=== PATIENT | female | born 1970 | race Caucasian/White ===

== ENCOUNTER → 2016-03-16 | Outpatient (REF) | payer OTHER ==
[~2016-03-16] MED LIST: /PROM25SU RE; /ROPI5TA PO; BACL10TA2 OR; BENT20TA OR; CETI5CHW OR; CLAR5CHW OR; DARV100T OR; ESTR125TA OR; FLEXERIL OR; GEOD40CA PO; LITH300T2 PO; OXYC1SOL PO; PERC5TAB8 PO; PHEN 25 PO; PRED10TA2 OR; TOPI50TA PO; TRAZ50TA OR; VICODINES TAB OR; XANA0.5T OR; [UNRECOGNIZED DRUG - OTHER]; immodium PO
[2016-03-16 16:07] LABS: MEAN CORPUSCULAR HEMOGLOBIN 32.9 pg (27.0-33.0); MEAN CORPUSCULAR HGB CONC 33.8 g/dl (32.0-36.5); MEAN CORPUSCULAR VOLUME 97.4 fl (80.0-96.0); RED CELL DISTRIBUTION WIDTH 12.3 % (11.5-14.5)
== END | disposition home or self-care (01) ==
LOC: M LAB REF 15:37
PROVIDERS: ATTEND Family Medicine
DX: R07.89 Other chest pain (principal); J44.0 Chronic obstructive pulmonary disease with (acute) lower respiratory infection; Z79.891 Long term (current) use of opiate analgesic; R06.83 Snoring; Z99.81 Dependence on supplemental oxygen

== ENCOUNTER → 2016-03-30 | Outpatient (REF) | payer OTHER ==
[2016-03-30 18:29] LABS: ALBUMIN 4.2 GM/DL (3.2-5.2); ALBUMIN/GLOBULIN RATIO 1.31 (1.00-1.93); ALKALINE PHOSPHATASE 62 U/L (45-117); ALT/SGPT 31 U/L (12-78); ANION GAP 9 MEQ/L (8-16); AST/SGOT 35 U/L (15-37); BILIRUBIN,TOTAL 0.3 MG/DL (0.2-1.0); BLOOD UREA NITROGEN 14 MG/DL (7-18); CALCIUM LEVEL 9.3 MG/DL (8.5-10.1); CARBON DIOXIDE LEVEL 23 MEQ/L (21-32); CHLORIDE LEVEL 108 MEQ/L (98-107); CREATININE FOR GFR 0.65 MG/DL (0.55-1.02); GLOMERULAR FILTRATION RATE > 60.0 (>58); GLUCOSE, FASTING 83 MG/DL (70-105); SODIUM LEVEL 140 MEQ/L (136-145); TOTAL PROTEIN 7.4 GM/DL (6.4-8.2)
== END | disposition home or self-care (01) ==
LOC: M LAB REF 16:31
PROVIDERS: ATTEND Family Medicine
DX: Z79.891 Long term (current) use of opiate analgesic (principal); Z99.81 Dependence on supplemental oxygen; R07.89 Other chest pain; J44.0 Chronic obstructive pulmonary disease with (acute) lower respiratory infection; R06.83 Snoring

== ENCOUNTER → 2016-06-01 | Day surgery (SDC) | payer OTHER ==
[~2016-06-01] VITALS: Ht 160 cm; Wt 112.9 kg
[~2016-06-01] MED LIST changes: +ALBU17IN INH; +ANOR1AER IN; +BENA25TA9 PO; +BISO10TA PO; +BISO5TAB5 PO; +BISOPROLOL FUM 2.5 MG PER 1/2TAB As Ordered ONE; +BISOPROLOL FUM 2.5 MG PER 1/2TAB PO ONE; +BISOPROLOL FUMARATE 5 MG TAB As Ordered ONE; +BISOPROLOL FUMARATE 5 MG TAB PO ONE; +BUPIVACAINE HCL 0.25% 30 ML VIAL As Ordered ONE; +COUM1TAB17 PO; +COUM2.5T11 PO; +EPIP0.3I2 IJ; +FENO150C PO; +HEPARIN SOD (PORCINE) 5000 UNITS/ML VIAL As Ordered ONE; +INSUHUMDS SC; +KETAMINE HCL 200 MG/20 ML VIAL As Ordered ONE; +LASI20TA PO; +LIDOCAINE 1% SDV INJ 30 ML VIAL As Ordered ONE; +LIDOCAINE 2% INJ 100 MG/5 ML SDV (FOR ANES.) As Ordered ONE; +LIPI20TA PO; +LOVE0.8I SC; +LR 1,000 ML IV SCH; +MIDAZOLAM INJ 2 MG/2 ML VIAL (J2250) As Ordered ONE; +NITR4TASL SL; +ONDANSETRON 4MG/2ML VIAL (J2405) As Ordered ONE; +ONDANSETRON 4MG/2ML VIAL (J2405) IV PRN; +OXYC1TAB23 PO; +PLAV75TA38 PO; +POTA10LI10 PO; +PROPOFOL 200 MG/20 ML VIAL As Ordered ONE; +VITA100054 PO; +VITA100L PO; +XANA0.5T3 PO; +ZOFR8TAB PO; +[UNRECOGNIZED DRUG - CODE] TD; +fentaNYL 100 MCG/2 ML INJECTION (J3010) As Ordered ONE
[2016-06-01 07:06] LABS: INR 1.02
--- NOTE | 2016-06-01 11:11 | REP ---
Chest one-view HISTORY: Yvjjnj-N-Qzag insertion Comparison: 12/13/2015 The lungs are clear. The heart is normal in size. The pulmonary vasculature is normal in appearance . the patient is status post Vefgau-A-Ntuk insertion in the superior vena cava. There is no definite pneumothorax. Impression: No acute disease. Signed by Dawood Gómez MD 06/01/2016 11:03 A
[2016-06-01 11:15] VITALS: BP 153/72
--- NOTE | 2016-06-01 11:19 | REP ---
FLUOROSCOPIC GUIDANCE FOR AOWNSS-F-SQAC EXCHANGE: 06/01/2016 CLINICAL HISTORY: Wdxnun-C-Mdeo removal/change. FINDINGS: Two images from C-arm fluoroscopy provided to Dr. Lazo of the surgery department showing a right subclavian catheter with the probe at the proximal and distally in the SVC. There are sternotomy wires evident. Fluoroscopy time: 1 minute 28 seconds. Signed by Gurmeet Blake MD 06/01/2016 08:07 P
--- NOTE | 2016-07-02 23:02 | RO ---
DATE OF PROCEDURE: 06/01/2016 PREOPERATIVE DIAGNOSIS: Nonfunctioning right side Pgbtsi-s-Yqhm. POSTOPERATIVE DIAGNOSIS: Nonfunctioning right side Ebatzq-y-Sspc. PROCEDURE PERFORMED: Insertion of right subclavian Zbdyke-z-Mpsy. SURGEON: Dr. Otis Lazo AFTERSCHOOL BABYSITTER: None. ANESTHESIA: Monitored anesthesia care with local anesthesia ESTIMATED BLOOD LOSS: Less than 5 mL. COMPLICATIONS: None. REMARKS: The patient tolerated the procedure well. Postoperative chest x-ray done confirms placement and absence of postoperative pneumothorax. DESCRIPTION OF PROCEDURE: Ms. Rey is a 46-year-old female, multiple medical problems requiring frequent blood draws that they found hard to get her vein. She has an Itietf-a-Tmko that stopped functioning more than a year now. She approached my office wanting to have the Colnih-q-Zovq change for frequent blood draws. She was seen by her sustainability executive director, was given clearance for the procedure as requested by anesthesia. She was brought to the operating room, her right chest Fqgqxi-i-Zxjt, which was coming off her internal jugular vein, was prepped and draped in the usual sterile fashion. After adequate anesthesia, the previous incision of the right Elhbgz-o-Tkwv was opened up with a scalpel. The Ecbwuu-h-Udur hub was exteriorized. We tried to aspirate and this aspirating sluggishly, though we were able to flush it. I disconnected the hub from the catheter, was unable to thread the wire through this; thus, I discontinued the hole of the catheter. Using the pocket that was previously created, the subclavian vein was located with a finder needle easily. Guidewire was threaded through and under fluoroscopic vision, placed at the junction of the right atrium and superior vena cava. Using modified Seldinger technique, the tract was dilated. The peel-away sheath was threaded into the subclavian vein and the guidewire exchanged for the catheter. The catheter was placed at its adequate placement and cut into appropriate length. The catheter and the hub was then connected and buried into the previously created subcutaneous pocket and secured with #2-0 Vicryl. I tested the hub and noted this to be aspirating and flushing well. The final flush we used heparin as our final flush. The pocket was then closed in layers with #3-0 Vicryl and #4-0 Monocryl to close the skin. Steri-Strip gauze dressings, Tegaderm then used for wound coverage. The patient was then awakened, brought to the recovery room. Postoperative chest x-ray taken.
== END ==
LOC: M SDC 06:15
PROVIDERS: ATTEND Surgery
DX: Z45.2 Encounter for adjustment and management of vascular access device (principal); I10 Essential (primary) hypertension; G35 Multiple sclerosis; K21.9 Gastro-esophageal reflux disease without esophagitis; F41.9 Anxiety disorder, unspecified; F32.9 Major depressive disorder, single episode, unspecified; J44.9 Chronic obstructive pulmonary disease, unspecified; R06.02 Shortness of breath; R06.83 Snoring; I25.10 Atherosclerotic heart disease of native coronary artery without angina pectoris; Z95.5 Presence of coronary angioplasty implant and graft; I25.2 Old myocardial infarction; I50.9 Heart failure, unspecified; E78.00 Pure hypercholesterolemia, unspecified; F43.10 Post-traumatic stress disorder, unspecified; Z87.891 Personal history of nicotine dependence; Z86.73 Personal history of transient ischemic attack (TIA), and cerebral infarction without residual deficits; Z79.899 Other long term (current) drug therapy; Z79.02 Long term (current) use of antithrombotics/antiplatelets; Z79.01 Long term (current) use of anticoagulants; Z88.8 Allergy status to other drugs, medicaments and biological substances; Z88.1 Allergy status to other antibiotic agents; Z88.5 Allergy status to narcotic agent; Z91.041 Radiographic dye allergy status
CPT/HCPCS: 36415; 36561; 71010; 76000; 85610; C1788; J0690; J2250; J2405; J3010

== ENCOUNTER 2016-07-24 08:19 | Emergency (ER) | payer OTHER ==
[~2016-07-24] VITALS: Ht 161.3 cm; Wt 117.9 kg
[~2016-07-24 08:19] MED LIST changes: -BISOPROLOL FUM 2.5 MG PER 1/2TAB As Ordered ONE; -BISOPROLOL FUM 2.5 MG PER 1/2TAB PO ONE; -BISOPROLOL FUMARATE 5 MG TAB As Ordered ONE; -BISOPROLOL FUMARATE 5 MG TAB PO ONE; -BUPIVACAINE HCL 0.25% 30 ML VIAL As Ordered ONE; -HEPARIN SOD (PORCINE) 5000 UNITS/ML VIAL As Ordered ONE; -KETAMINE HCL 200 MG/20 ML VIAL As Ordered ONE; -LIDOCAINE 1% SDV INJ 30 ML VIAL As Ordered ONE; -LIDOCAINE 2% INJ 100 MG/5 ML SDV (FOR ANES.) As Ordered ONE; -LR 1,000 ML IV SCH; -MIDAZOLAM INJ 2 MG/2 ML VIAL (J2250) As Ordered ONE; -ONDANSETRON 4MG/2ML VIAL (J2405) As Ordered ONE; -ONDANSETRON 4MG/2ML VIAL (J2405) IV PRN; -PROPOFOL 200 MG/20 ML VIAL As Ordered ONE; -fentaNYL 100 MCG/2 ML INJECTION (J3010) As Ordered ONE
[2016-07-24] MEDS ORDERED: ONDANSETRON 4MG/2ML VIAL (J2405) IV ONE (08:45)
[2016-07-24] MEDS ORDERED: SODIUM CHLORIDE 0.9% 1000 ML IV ONE (08:45)
[2016-07-24] MEDS ORDERED: fentaNYL 100 MCG/2 ML INJECTION (J3010) IV ONE ×2 (08:45→11:00)
[2016-07-24] MEDS ORDERED: REQU1TAB16 PO (08:50)
[2016-07-24] MEDS ORDERED: VITA100T20 PO (08:50)
[2016-07-24 08:56] LABS: BASO % 0.4 % (0.0-1.0); EOS # 0.2 K/mm3 (0.0-0.50); EOS % 2.4 % (0.0-3.0); LARGE UNSTAINED CELL # 0.2 K/mm3 (0.0-0.4); LARGE UNSTAINED CELL % 1.8 % (0.0-4.0); LYMPH # 2.1 K/mm3 (1.5-4.5); LYMPH % 18.5 % (24.0-44.0); MEAN CORPUSCULAR HEMOGLOBIN 32.2 pg (27.0-33.0); MEAN CORPUSCULAR HGB CONC 33.1 g/dl (32.0-36.5); MEAN CORPUSCULAR VOLUME 97.4 fl (80.0-96.0); MONO # 0.4 K/mm3 (0.0-0.8); MONO % 4.3 % (0.0-5.0); NEUTROPHILS # 7.4 K/mm3 (1.8-7.7); NEUTROPHILS % 72.7 % (36.0-66.0); PLATELET COUNT, AUTOMATED 401 k/mm3 (150-450); RED CELL DISTRIBUTION WIDTH 12.4 % (11.5-14.5); WHITE BLOOD COUNT 10.2 K/mm3 (4.0-10.0)
[2016-07-24 09:05] LABS: ANION GAP 7 MEQ/L (8-16); BLOOD UREA NITROGEN 12 MG/DL (7-18); CALCIUM LEVEL 9.2 MG/DL (8.5-10.1); CARBON DIOXIDE LEVEL 27 MEQ/L (21-32); CHLORIDE LEVEL 106 MEQ/L (98-107); CREATININE FOR GFR 0.86 MG/DL (0.55-1.02); GLOMERULAR FILTRATION RATE > 60.0 (>58); GLUCOSE, FASTING 107 MG/DL (70-105); POTASSIUM SERUM 4.2 MEQ/L (3.5-5.1); SODIUM LEVEL 140 MEQ/L (136-145)
--- NOTE | 2016-07-24 09:30 | REP ---
Clinical: Left flank pain. Comparison: 11/13/2010. Findings: Lung bases demonstrate minimal scarring in the right lower lobe. Visualized heart and pericardium are normal. Liver, spleen, pancreas, bilateral adrenal glands and kidneys are normal. Specifically, there is no perinephric stranding, hydroureteronephrosis, intrarenal or obstructing ureteral calculi. The patient is status post cholecystectomy. The enteric system is without obstruction or acute inflammatory process. Pelvis demonstrates collapsed bladder and evidence for prior hysterectomy. No pelvic fluid or ascites. No free air. No significant intraperitoneal or retroperitoneal adenopathy. Abdominal aorta demonstrates minimal atherosclerotic disease without aneurysm. Surrounding musculoskeletal structures demonstrate age-related changes without focal osseous abnormality. Impression: Essentially normal noncontrast CT of the abdomen and pelvis. No acute pathology appreciated. Normal appearance to the kidneys and urinary tract system. Signed by Khari Grace MD 07/24/2016 09:21 A
[2016-07-24 10:53] LABS: MYOGLOBIN 48 NG/ML (13-71)
--- NOTE | 2016-07-24 12:00 | REP ---
Clinical: Left flank pain. Technique: Real time bassett scale ultrasound examination using curved array transducer. Findings: The kidneys demonstrate normal reniform shape and echogenicity with evidence to suggest complete duplication of the collecting system bilaterally. However, this is not confirmed by a recent noncontrast CT. No associated hydronephrosis, nephrolithiasis, cystic or mass lesions are identified. The bladder is normal in appearance. Right kidney measures 4.3 x 5.9 x 5.6 cm. Left kidney measures 13.5 x 6.0 x 5.5 cm. Bladder currently measuring 7.4 x 8.8 x 4.1 cm. Impression: No evidence for hydroureteronephrosis or nephrolithiasis. Possible duplicated collecting system bilaterally. Signed by Khari Grace MD 07/24/2016 11:52 A
[2016-07-24] MEDS ORDERED: PERCOCET 5MG/325MG TAB PO ONE (12:30)
[2016-07-24 14:00] VITALS: BP 118/56
--- NOTE | 2016-07-25 14:14 | ECGEPIP ---
Stationary ECG Study [facility] - ED Test Date: 2016-07-24 Pat Name: MARA OLEARY Department: Room: - Gender: F Forgeman Helper: lynn : 1970 Requested By: Laxmi Dumont Order Number: [id number] Reading MD: Laxmi Dumont Measurements Intervals [place] Rate: 75 P: 35 MI: 157 QRS: 37 QRSD: 90 T: 145 QT: 375 QTc: 419 Interpretive Statements SINUS RHYTHM ST DEVIATION AND MODERATE T-WAVE ABNORMALITY, CONSIDER ANTEROLATERAL ISCHEMIA SIMILAR 05/05/14 Electronically Signed On 07-25-2016 14:14:29 EDT by Laxmi Dumont
== END 2016-07-24 14:04 | disposition home or self-care (01) ==
LOC: M ED 09:10
DX: R10.9 Unspecified abdominal pain (principal); R60.0 Localized edema; I50.9 Heart failure, unspecified; I25.10 Atherosclerotic heart disease of native coronary artery without angina pectoris; I48.91 Unspecified atrial fibrillation; J44.9 Chronic obstructive pulmonary disease, unspecified; I25.2 Old myocardial infarction; M06.9 Rheumatoid arthritis, unspecified; G35 Multiple sclerosis; K50.90 Crohn's disease, unspecified, without complications; F41.0 Panic disorder [episodic paroxysmal anxiety]; F43.10 Post-traumatic stress disorder, unspecified; Z95.1 Presence of aortocoronary bypass graft; Z95.5 Presence of coronary angioplasty implant and graft; I35.9 Nonrheumatic aortic valve disorder, unspecified; Z87.891 Personal history of nicotine dependence; Z79.899 Other long term (current) drug therapy; Z79.4 Long term (current) use of insulin; Z79.01 Long term (current) use of anticoagulants; Z79.02 Long term (current) use of antithrombotics/antiplatelets; Z88.8 Allergy status to other drugs, medicaments and biological substances; Z88.1 Allergy status to other antibiotic agents; Z91.018 Allergy to other foods; Z91.013 Allergy to seafood; Z91.040 Latex allergy status; Z91.041 Radiographic dye allergy status; Z88.5 Allergy status to narcotic agent; Z88.6 Allergy status to analgesic agent

== ENCOUNTER → 2016-10-17 | Outpatient (REF) | payer OTHER ==
[~2016-10-17] MED LIST changes: +BENA25TA10 PO; -BENA25TA9 PO; -COUM2.5T11 PO; +COUM2.5T17 PO; +PLAV1TAB2 PO; -PLAV75TA38 PO; +REQU1TAB16 PO; +VITA100T20 PO
== END ==
LOC: M SFHCLERA 08:34
PROVIDERS: ATTEND Family Medicine
DX: Z53.8 Procedure and treatment not carried out for other reasons (principal); I50.22 Chronic systolic (congestive) heart failure; R31.9 Hematuria, unspecified

== ENCOUNTER → 2016-10-19 | Outpatient (REF) | payer OTHER ==
[2016-10-19 17:47] LABS: INR 2.24
[2016-10-19 17:59] LABS: CALCIUM OXALATE CRYSTALS MODERATE
[2016-10-19 18:05] LABS: ALBUMIN/GLOBULIN RATIO 1.25 (1.00-1.93); ALKALINE PHOSPHATASE 54 U/L (45-117); ALT/SGPT 25 U/L (12-78); ANION GAP 8 MEQ/L (8-16); AST/SGOT 19 U/L (15-37); BILIRUBIN,TOTAL 0.2 MG/DL (0.2-1.0); BLOOD UREA NITROGEN 13 MG/DL (7-18); CALCIUM LEVEL 8.9 MG/DL (8.5-10.1); CARBON DIOXIDE LEVEL 25 MEQ/L (21-32); CHLORIDE LEVEL 106 MEQ/L (98-107); CREATININE FOR GFR 0.78 MG/DL (0.55-1.02); GLOMERULAR FILTRATION RATE > 60.0 (>58); GLUCOSE, FASTING 109 MG/DL (70-105); POTASSIUM SERUM 3.4 MEQ/L (3.5-5.1); SODIUM LEVEL 139 MEQ/L (136-145); TOTAL PROTEIN 7.2 GM/DL (6.4-8.2)
[2016-10-19 18:13] LABS: MEAN CORPUSCULAR HEMOGLOBIN 32.4 pg (27.0-33.0); MEAN CORPUSCULAR VOLUME 98.1 fl (80.0-96.0); RED CELL DISTRIBUTION WIDTH 12.7 % (11.5-14.5); WHITE BLOOD COUNT 9.4 K/mm3 (4.0-10.0)
== END ==
LOC: M LAB REF 16:39
PROVIDERS: ATTEND Family Medicine
DX: G35 Multiple sclerosis (principal); I25.10 Atherosclerotic heart disease of native coronary artery without angina pectoris; Z79.01 Long term (current) use of anticoagulants; I50.22 Chronic systolic (congestive) heart failure; R30.9 Painful micturition, unspecified

== ENCOUNTER → 2016-10-19 | Outpatient (REF) | payer OTHER ==
[2016-10-19 18:11] LABS: INR 2.24
== END ==
LOC: M LAB REF 16:42
DX: Z51.81 Encounter for therapeutic drug level monitoring (principal); Z79.01 Long term (current) use of anticoagulants

== ENCOUNTER → 2016-11-23 | Outpatient (REF) | payer OTHER ==
[2016-11-23 12:51] LABS: CALCIUM OXALATE CRYSTALS LARGE
== END ==
LOC: M SMT 11:40
PROVIDERS: ATTEND Nurse Practitioner Women's Health
DX: R31.29 Other microscopic hematuria (principal)

== ENCOUNTER → 2016-11-26 | Outpatient (REF) | payer OTHER ==
[2016-11-26 14:44] LABS: INR 1.75
[2016-11-26 15:47] LABS: ANION GAP 11 MEQ/L (8-16); BLOOD UREA NITROGEN 12 MG/DL (7-18); CALCIUM LEVEL 9.2 MG/DL (8.5-10.1); CARBON DIOXIDE LEVEL 27 MEQ/L (21-32); CHLORIDE LEVEL 102 MEQ/L (98-107); CHOLESTEROL LEVEL 162 MG/DL (<200); CREATININE FOR GFR 0.86 MG/DL (0.55-1.02); GLOMERULAR FILTRATION RATE > 60.0 (>58); GLUCOSE, FASTING 76 MG/DL (70-105); MAGNESIUM LEVEL 2.5 MG/DL (1.8-2.4); POTASSIUM SERUM 4.3 MEQ/L (3.5-5.1); SODIUM LEVEL 140 MEQ/L (136-145); TRIGLYCERIDES LEVEL 359 MG/DL (<150)
== END ==
LOC: M LAB REF 12:34
PROVIDERS: ATTEND Internal Medicine Cardiovascular Disease
DX: Z51.81 Encounter for therapeutic drug level monitoring (principal); Z79.01 Long term (current) use of anticoagulants; R31.29 Other microscopic hematuria; I25.10 Atherosclerotic heart disease of native coronary artery without angina pectoris; I48.0 Paroxysmal atrial fibrillation

== ENCOUNTER → 2017-02-22 | Outpatient (REF) | payer OTHER ==
[2017-02-22 12:40] LABS: ANION GAP 7 MEQ/L (8-16); BLOOD UREA NITROGEN 12 MG/DL (7-18); CALCIUM LEVEL 8.6 MG/DL (8.5-10.1); CARBON DIOXIDE LEVEL 27 MEQ/L (21-32); CHLORIDE LEVEL 107 MEQ/L (98-107); CREATININE FOR GFR 0.67 MG/DL (0.55-1.02); GLOMERULAR FILTRATION RATE > 60.0 (>58); GLUCOSE, FASTING 109 MG/DL (70-105); MAGNESIUM LEVEL 2.5 MG/DL (1.8-2.4); POTASSIUM SERUM 4.1 MEQ/L (3.5-5.1); SODIUM LEVEL 141 MEQ/L (136-145)
== END ==
LOC: M LAB REF 12:21
PROVIDERS: ATTEND Internal Medicine Cardiovascular Disease
DX: R60.0 Localized edema (principal)

== ENCOUNTER → 2017-03-11 | Outpatient (REF) | payer OTHER ==
[2017-03-11 18:50] LABS: AMPHETAMINES URINE REFLEX NEGATIVE (NEGATIVE); BARBITURATES URINE REFLEX NEGATIVE (NEGATIVE); CANNABINOIDS URINE REFLEX NEGATIVE (NEGATIVE); COCAINE METABOLITE URINE REFLE NEGATIVE (NEGATIVE); METHADONE URINE REFLEX NEGATIVE (NEGATIVE); OPIATES URINE REFLEX NEGATIVE (NEGATIVE); PHENCYCLIDINE URINE REFLEX NEGATIVE (NEGATIVE)
[2017-03-11 18:57] LABS: BENZODIAZEPINES URINE REFLEX POSITIVE (NEGATIVE)
[2017-03-15 00:06] LABS: Benzodiazepines Positive (.); GC OH-Alprazola 522 ng/mL (Cutoff=300); Nordiazipam Negative (Cutoff=300); OH-Alprazolam Positive (.)
== END ==
LOC: M SFHCLERA 10:53
DX: G89.4 Chronic pain syndrome (principal)
CPT/HCPCS: 80346

== ENCOUNTER → 2017-04-30 | Outpatient (REF) | payer OTHER ==
[2017-04-30 15:14] LABS: AMPHETAMINES URINE REFLEX NEGATIVE (NEGATIVE); BARBITURATES URINE REFLEX NEGATIVE (NEGATIVE); BENZODIAZEPINES URINE REFLEX NEGATIVE (NEGATIVE); CANNABINOIDS URINE REFLEX NEGATIVE (NEGATIVE); COCAINE METABOLITE URINE REFLE NEGATIVE (NEGATIVE); METHADONE URINE REFLEX NEGATIVE (NEGATIVE); OPIATES URINE REFLEX NEGATIVE (NEGATIVE); PHENCYCLIDINE URINE REFLEX NEGATIVE (NEGATIVE)
== END ==
LOC: M SFHCLERA 09:05
DX: G89.29 Other chronic pain (principal)

== ENCOUNTER → 2017-07-04 | Outpatient (REF) | payer OTHER ==
[2017-07-04 12:03] LABS: ESTIMATED AVERAGE GLUCOSE 126 MG/DL (60-110)
== END ==
LOC: M SFHCLERA 09:59
DX: R73.09 Other abnormal glucose (principal)

== ENCOUNTER → 2017-07-22 | Outpatient (CLI) | payer OTHER ==
[2017-07-22 14:03] LABS: BASO # 0.1 10^3/uL (0.0-0.2); BASO % 0.4 % (0.0-1.0); EOS # 0.2 10^3/uL (0.0-0.50); EOS % 1.7 % (0.0-3.0); HEMATOCRIT 47.4 % (36.0-47.0); HEMOGLOBIN 15.5 g/dl (12.0-15.5); IMMATURE GRANULOCYTE % 0.6 % (0-3.0); LYMPH # 2.6 10^3/uL (1.5-4.5); LYMPH % 20.4 % (24.0-44.0); MEAN CORPUSCULAR HEMOGLOBIN 31.8 pg (27.0-33.0); MEAN CORPUSCULAR HGB CONC 32.7 g/dl (32.0-36.5); MEAN CORPUSCULAR VOLUME 97.1 fl (80.0-96.0); MONO # 0.8 10^3/uL (0.0-0.8); NEUTROPHILS # 8.9 10^3/uL (1.8-7.7); NEUTROPHILS % 70.9 % (36.0-66.0); PLATELET COUNT, AUTOMATED 463 10^3/uL (150-450); RED BLOOD COUNT 4.88 10^6/uL (4.00-5.40); RED CELL DISTRIBUTION WIDTH 12.9 % (11.5-14.5); WHITE BLOOD COUNT 12.6 10^3/uL (4.0-10.0)
[2017-07-22 14:49] LABS: TOTAL T3 150.2 NG/DL (60.0-181.0)
[2017-07-22 14:52] LABS: ALBUMIN 4.6 GM/DL (3.2-5.2); ALBUMIN/GLOBULIN RATIO 1.31 (1.00-1.93); ALKALINE PHOSPHATASE 60 U/L (45-117); ALT/SGPT 30 U/L (12-78); ANION GAP 10 MEQ/L (8-16); AST/SGOT 24 U/L (7-37); BILIRUBIN,TOTAL 0.2 MG/DL (0.2-1.0); BLOOD UREA NITROGEN 11 MG/DL (7-18); CALCIUM LEVEL 9.4 MG/DL (8.5-10.1); CARBON DIOXIDE LEVEL 23 MEQ/L (21-32); CHLORIDE LEVEL 106 MEQ/L (98-107); CHOLESTEROL LEVEL 172 MG/DL (<200); CHOLESTEROL RISK RATIO 7.166 (<5); CREATININE FOR GFR 0.89 MG/DL (0.55-1.30); FREE T4 0.97 NG/DL (0.76-1.46); GLOMERULAR FILTRATION RATE > 60.0 (>58); GLUCOSE, FASTING 110 MG/DL (70-100); HDL CHOLESTEROL 24 MG/DL (>40); MAGNESIUM LEVEL 2.4 MG/DL (1.8-2.4); NON-HDL-C 148 MG/DL; NT-PRO BNP 32 PG/ML (<125); POTASSIUM SERUM 4.4 MEQ/L (3.5-5.1); SODIUM LEVEL 139 MEQ/L (136-145); TOTAL PROTEIN 8.1 GM/DL (6.4-8.2); TRIGLYCERIDES LEVEL 425 MG/DL (<150)
== END ==
LOC: M LAB 13:18
DX: R06.09 Other forms of dyspnea (principal)
CPT/HCPCS: 71046

== ENCOUNTER → 2017-08-14 | Outpatient (REF) | payer OTHER | LOC: M SFHCLERA 08:41 | DX: G89.29 Other chronic pain (principal) ==

== ENCOUNTER → 2017-11-13 | Outpatient (REF) | payer OTHER | LOC: M SFHCLERA 13:37 | DX: G89.29 Other chronic pain (principal) ==

== ENCOUNTER → 2017-11-13 | Outpatient (REF) | payer OTHER ==
[2017-11-13 14:00] LABS: BASO % 0.3 % (0.0-1.0); EOS # 0.2 10^3/uL (0.0-0.50); EOS % 1.6 % (0.0-3.0); HEMATOCRIT 44.5 % (36.0-47.0); HEMOGLOBIN 14.3 g/dl (12.0-15.5); IMMATURE GRANULOCYTE % 0.6 % (0-3.0); LYMPH # 3.1 10^3/uL (1.5-4.5); LYMPH % 29.4 % (24.0-44.0); MEAN CORPUSCULAR HEMOGLOBIN 31.6 pg (27.0-33.0); MEAN CORPUSCULAR HGB CONC 32.1 g/dl (32.0-36.5); MEAN CORPUSCULAR VOLUME 98.5 fl (80.0-96.0); MONO # 0.5 10^3/uL (0.0-0.8); MONO % 5.1 % (0.0-5.0); NEUTROPHILS # 6.7 10^3/uL (1.8-7.7); PLATELET COUNT, AUTOMATED 382 10^3/uL (150-450); RED BLOOD COUNT 4.52 10^6/uL (4.00-5.40); RED CELL DISTRIBUTION WIDTH 13.3 % (11.5-14.5); WHITE BLOOD COUNT 10.6 10^3/uL (4.0-10.0)
[2017-11-13 16:01] LABS: ALBUMIN 4.3 GM/DL (3.2-5.2); ALBUMIN/GLOBULIN RATIO 1.39 (1.00-1.93); ALKALINE PHOSPHATASE 59 U/L (45-117); ALT/SGPT 25 U/L (12-78); ANION GAP 10 MEQ/L (8-16); AST/SGOT 29 U/L (7-37); BILIRUBIN,TOTAL 0.3 MG/DL (0.2-1.0); BLOOD UREA NITROGEN 11 MG/DL (7-18); CARBON DIOXIDE LEVEL 24 MEQ/L (21-32); CHLORIDE LEVEL 105 MEQ/L (98-107); CREATININE FOR GFR 0.58 MG/DL (0.55-1.30); FREE T4 1.24 NG/DL (0.76-1.46); GLOMERULAR FILTRATION RATE > 60.0 (>58); GLUCOSE, FASTING 92 MG/DL (70-100); MAGNESIUM LEVEL 2.2 MG/DL (1.8-2.4); NT-PRO BNP 32 PG/ML (<125); POTASSIUM SERUM 4.3 MEQ/L (3.5-5.1); SODIUM LEVEL 139 MEQ/L (136-145); TOTAL PROTEIN 7.4 GM/DL (6.4-8.2)
== END ==
LOC: M LAB REF 13:33
DX: I10 Essential (primary) hypertension (principal); I25.10 Atherosclerotic heart disease of native coronary artery without angina pectoris

== ENCOUNTER → 2017-12-19 | Outpatient (REF) | payer OTHER ==
[2017-12-19 18:22] LABS: INR 2.09; PROTHROMBIN TIME 23.9 SECONDS (12.1-14.4)
== END ==
LOC: M LAB REF 17:32
DX: I48.2 Chronic atrial fibrillation (principal)

== ENCOUNTER → 2018-01-15 | Outpatient (REF) | payer OTHER | LOC: M SFHCLERA 08:55 | DX: R73.02 Impaired glucose tolerance (oral) (principal); G89.29 Other chronic pain ==

== ENCOUNTER → 2018-01-31 | Outpatient (REF) | payer OTHER ==
[2018-01-31 13:19] LABS: ESTIMATED AVERAGE GLUCOSE 128 MG/DL (60-110); HEMOGLOBIN A1c 6.1 %
== END ==
LOC: M LAB REF 11:29
DX: R73.02 Impaired glucose tolerance (oral) (principal); G89.29 Other chronic pain
CPT/HCPCS: 83036

== ENCOUNTER → 2018-03-21 | Outpatient (CLI) | payer OTHER ==
[~2018-03-21] MED LIST changes: -LASI20TA PO; +LASI20TA3 PO; -ZOFR8TAB PO; +ZOFR8TAB24 PO
== END ==
LOC: M LRY 09:03
PROVIDERS: ATTEND Family Medicine
DX: Z53.9 Procedure and treatment not carried out, unspecified reason (principal); W19.XXXA Unspecified fall, initial encounter

== ENCOUNTER → 2018-05-12 | Outpatient (CLI) | payer OTHER ==
--- NOTE | 2018-05-13 02:20 | REP ---
Clinical: thoracic pain with prior trauma/fall. Technique: AP, lateral, and swimmers views. Findings: Alignment and kyphosis is maintained. Vertebral bodies intact. No acute fracture / compression injury or subluxation. No degenerative changes. Paravertebral soft tissues are normal. Impression: Normal age-appropriate thoracic spine series. Electronically Signed by Khari Grace MD 05/13/2018 02:11 A
--- NOTE | 2018-05-13 02:33 | REP ---
Clinical: Trauma/fall . Technique: AP, lateral, bilateral oblique, and coned-down views. Findings: Alignment and lordosis is maintained. The vertebral bodies including transverse process and spinous processes are intact and normal. There is no evidence for acute fracture / compression injury or subluxation. No evidence for spondylolysis or spondylolisthesis. No significant degenerative change is noted. Impression: Age-appropriate lumbosacral spine series. No acute fracture / compression injury or subluxation. Electronically Signed by Khari Grace MD 05/13/2018 02:24 A
== END ==
LOC: M RAD 12:07
PROVIDERS: ATTEND Family Medicine
DX: M54.5 Low back pain (principal); M54.6 Pain in thoracic spine; E66.9 Obesity, unspecified; Z91.81 History of falling

== ENCOUNTER → 2018-05-14 | Outpatient (CLI) | payer OTHER ==
--- NOTE | 2018-05-15 03:47 | REP ---
Clinical: Right elbow pain . Technique: AP, lateral, bilateral oblique views of the right elbow. Findings: No acute fracture or dislocation is appreciated. Joint spaces and surrounding soft tissues appear normal. Lateral view demonstrates normal positioning to the anterior and posterior fat pads without evidence for effusion/hemarthrosis. No subcutaneous emphysema or foreign body identified. Impression: Normal right elbow radiographs. Electronically Signed by Khari Grace MD 05/15/2018 03:39 A
== END ==
LOC: M LRY 16:45
PROVIDERS: ATTEND Family Medicine
DX: M25.521 Pain in right elbow (principal)

== ENCOUNTER → 2018-05-14 | Outpatient (REF) | payer OTHER | LOC: M SFHCLERA 16:41 | PROVIDERS: ATTEND Family Medicine | DX: G89.29 Other chronic pain (principal) ==

== ENCOUNTER 2018-06-19 05:50 | Emergency (ER) | payer OTHER ==
[~2018-06-19] VITALS: Ht 160 cm; Wt 118.6 kg
[~2018-06-19 05:50] MED LIST changes: -/ROPI5TA PO; -BISO10TA PO; +BISO10TA13 PO; +REQU1TAB15 PO; -VITA100T20 PO; +VITA100T51 PO
[2018-06-19 06:17] LABS: BASO % 0.3 % (0.0-1.0); EOS # 0.1 10^3/uL (0.0-0.50); EOS % 1.1 % (0.0-3.0); HEMATOCRIT 46.7 % (36.0-47.0); HEMOGLOBIN 15.3 g/dl (12.0-15.5); LYMPH # 2.9 10^3/uL (1.5-4.5); LYMPH % 25.4 % (24.0-44.0); MEAN CORPUSCULAR HEMOGLOBIN 32.8 pg (27.0-33.0); MEAN CORPUSCULAR HGB CONC 32.8 g/dl (32.0-36.5); MEAN CORPUSCULAR VOLUME 100.2 fl (80.0-96.0); MONO % 8.4 % (0.0-5.0); NEUTROPHILS # 7.3 10^3/uL (1.8-7.7); NEUTROPHILS % 63.8 % (36.0-66.0); PLATELET COUNT, AUTOMATED 382 10^3/uL (150-450); RED BLOOD COUNT 4.66 10^6/uL (4.00-5.40); WHITE BLOOD COUNT 11.4 10^3/uL (4.0-10.0)
[2018-06-19] MEDS ORDERED: CLOPIDOGREL 75 MG TAB PO STA (06:23)
[2018-06-19 06:30] LABS: INR 2.07; PROTHROMBIN TIME 23.7 SECONDS (12.1-14.4)
[2018-06-19] MEDS ORDERED: METOPROLOL TART 25 MG TABLET PO ONE (06:30)
[2018-06-19] MEDS ORDERED: NITROGLYCERIN 2% OINT 1 GM *U/D* PKT TOP ONE (06:30)
[2018-06-19 06:31] LABS: PARTIAL THROMBOPLASTIN TIME 42.5 SECONDS (25.4-37.6)
[2018-06-19] MEDS ORDERED: LORazepam 2 MG/ML VIAL (J2060) IV STA (06:35)
[2018-06-19] MEDS ORDERED: LASI40TA9 PO (06:44)
[2018-06-19 06:57] LABS: BLOOD UREA NITROGEN 13 MG/DL (7-18); CALCIUM LEVEL 8.9 MG/DL (8.5-10.1); CARBON DIOXIDE LEVEL 24 MEQ/L (21-32); CHLORIDE LEVEL 107 MEQ/L (98-107); CPK CREATINE PHOSPHOKINASE 131 U/L (26-192); CREATININE FOR GFR 0.73 MG/DL (0.55-1.30); GLOMERULAR FILTRATION RATE > 60.0 (>51); GLUCOSE, FASTING 113 MG/DL (70-100); MB/CK RELATIVE INDEX 0.92 (< OR =4); NT-PRO BNP 67 PG/ML (<125); POTASSIUM SERUM 4.8 MEQ/L (3.5-5.1); SODIUM LEVEL 138 MEQ/L (136-145); TROPONIN I < 0.02 NG/ML (< 0.10)
[2018-06-19 07:03] VITALS: BP 130/74
[2018-06-19] MEDS ORDERED: PERCOCET 5MG/325MG TAB PO ONE (08:00)
--- NOTE | 2018-06-19 08:05 | REP ---
Portable chest x-ray: Single view. History: Chest pain. Comparison study: July 22, 2017. Findings: A right-sided Kzyxyf-G-Zwwe catheter is seen with its tip in the expected location of the upper portion of the superior vena cava. EKG electrodes are seen. Prior sternotomy wires are noted. Cardiomediastinal silhouette is unchanged from the prior study. There is a prominent left atrial appendage and main pulmonary artery segment left heart border. This is unchanged. Lungs are symmetrically aerated and free of infiltrate. Pleural angles are sharp. Pulmonary vasculature is not increased. No significant bony abnormality is appreciated. Impression: No acute disease. Mild cardiac enlargement. Electronically Signed by Benjamin Prieto MD 06/19/2018 07:56 A
[2018-06-19 09:48] LABS: CPK CREATINE PHOSPHOKINASE 120 U/L (26-192); MB/CK RELATIVE INDEX 1.08 (< OR =4); TROPONIN I < 0.02 NG/ML (< 0.10)
[2018-06-19 10:25] VITALS: BP 126/64
--- NOTE | 2018-06-19 21:44 | ECGEPIP ---
Stationary ECG Study [facility] - ED Test Date: 2018-06-19 Pat Name: MARA OLEARY Department: Room: - Gender: F Natural Gas Engineer: RENE : 1970 Requested By: NO NUÑEZ Order Number: [id number] Reading MD: Laxmi Dumont Measurements Intervals [place] Rate: 74 P: 14 MS: 156 QRS: 39 QRSD: 88 T: 149 QT: 367 QTc: 409 Interpretive Statements SINUS RHYTHM ST DEVIATION AND MODERATE T-WAVE ABNORMALITY, CONSIDER ANTEROLATERAL ISCHEMIA SIMILAR 07/24/16 Electronically Signed On 06-19-2018 21:43:55 EDT by Laxmi Dumont
--- NOTE | 2018-06-19 21:44 | ECGEPIP ---
Stationary ECG Study [facility] - ED Test Date: 2018-06-19 Pat Name: MARA OLEARY Department: Room: - Gender: F Washing Machine Loader: TAMI : 1970 Requested By: NO NUÑEZ Order Number: [id number] Reading MD: Laxmi Dumont Measurements Intervals [place] Rate: 64 P: 10 SD: 156 QRS: 45 QRSD: 84 T: 137 QT: 403 QTc: 418 Interpretive Statements SINUS RHYTHM MODERATE T-WAVE ABNORMALITY, CONSIDER ANTEROLATERAL ISCHEMIA DECREASED RATE 06/19/18 Electronically Signed On 06-19-2018 21:44:31 EDT by Laxmi Dumont
== END 2018-06-19 10:35 | disposition home or self-care (01) ==
LOC: EDBD 05:50 → M ED 05:50
DX: R07.89 Other chest pain (principal); I51.7 Cardiomegaly; J44.9 Chronic obstructive pulmonary disease, unspecified; I48.91 Unspecified atrial fibrillation; I25.10 Atherosclerotic heart disease of native coronary artery without angina pectoris; G35 Multiple sclerosis; G89.4 Chronic pain syndrome; Z79.899 Other long term (current) drug therapy; Z79.01 Long term (current) use of anticoagulants; Z88.1 Allergy status to other antibiotic agents; Z88.2 Allergy status to sulfonamides; Z88.5 Allergy status to narcotic agent; Z88.4 Allergy status to anesthetic agent; Z88.8 Allergy status to other drugs, medicaments and biological substances; Z91.018 Allergy to other foods; Z91.048 Other nonmedicinal substance allergy status
CPT/HCPCS: 36415; 71045; 80048; 82550; 82553; 83880; 85025; 85610; 85730; 93005; 93041; 94760; 96374; 99285; J2060

== ENCOUNTER → 2018-07-04 | Outpatient (REF) | payer OTHER ==
[~2018-07-04] MED LIST changes: +LASI40TA9 PO
[2018-07-04 14:21] LABS: ALBUMIN 4.5 GM/DL (3.2-5.2); ALT/SGPT 28 U/L (12-78); BILIRUBIN,TOTAL 0.3 MG/DL (0.2-1.0); BLOOD UREA NITROGEN 9 MG/DL (7-18); CALCIUM LEVEL 9.1 MG/DL (8.5-10.1); CARBON DIOXIDE LEVEL 26 MEQ/L (21-32); CHLORIDE LEVEL 105 MEQ/L (98-107); CHOLESTEROL LEVEL 165 MG/DL (<200); CHOLESTEROL RISK RATIO 5.156 (<5); CREATININE FOR GFR 0.63 MG/DL (0.55-1.30); GLOMERULAR FILTRATION RATE > 60.0 (>51); GLUCOSE, FASTING 84 MG/DL (70-100); HDL CHOLESTEROL 32 MG/DL (>40); LDL CHOLESTEROL 62 MG/DL (<100); NON-HDL-C 133 MG/DL; POTASSIUM SERUM 4.5 MEQ/L (3.5-5.1); SODIUM LEVEL 138 MEQ/L (136-145); TOTAL PROTEIN 7.3 GM/DL (6.4-8.2); TRIGLYCERIDES LEVEL 356 MG/DL (<150)
[2018-07-04 16:06] LABS: HEMOGLOBIN A1c 6.3 %
[2018-07-05 10:37] LABS: LDL DIRECT 88 mg/dL (0-99)
== END ==
LOC: M LAB REF 13:48
PROVIDERS: ATTEND Family Medicine
DX: E78.5 Hyperlipidemia, unspecified (principal); R73.02 Impaired glucose tolerance (oral)

== ENCOUNTER → 2018-07-31 | Outpatient (REF) | payer OTHER | LOC: M SFHCLERA 07:57 | PROVIDERS: ATTEND Family Medicine | DX: J30.2 Other seasonal allergic rhinitis (principal) ==

== ENCOUNTER 2018-08-16 10:01 | Emergency (ER) | payer OTHER ==
[~2018-08-16] VITALS: Ht 160 cm; Wt 120.0 kg
[2018-08-16 12:30] VITALS: BP 133/67
[2018-08-16] MEDS ORDERED: SODIUM CHLORIDE 0.9% INJ 10 ML SYR IV PRN (12:45)
== END 2018-08-16 12:43 | disposition home or self-care (01) ==
LOC: M ED 10:01
DX: T82.598A Other mechanical complication of other cardiac and vascular devices and implants, initial encounter (principal); X58.XXXA Exposure to other specified factors, initial encounter; Y92.89 Other specified places as the place of occurrence of the external cause; E11.9 Type 2 diabetes mellitus without complications; I11.0 Hypertensive heart disease with heart failure; I50.9 Heart failure, unspecified; J44.9 Chronic obstructive pulmonary disease, unspecified; G43.909 Migraine, unspecified, not intractable, without status migrainosus; K58.9 Irritable bowel syndrome, unspecified; Z79.899 Other long term (current) drug therapy; Z79.4 Long term (current) use of insulin; Z79.01 Long term (current) use of anticoagulants; Z88.1 Allergy status to other antibiotic agents; Z88.2 Allergy status to sulfonamides; Z88.5 Allergy status to narcotic agent; Z88.4 Allergy status to anesthetic agent; Z88.8 Allergy status to other drugs, medicaments and biological substances; Z91.018 Allergy to other foods; Z91.041 Radiographic dye allergy status; Z91.048 Other nonmedicinal substance allergy status

== ENCOUNTER → 2018-08-20 | Outpatient (REF) | payer OTHER ==
[2018-08-20 14:35] LABS: BASO # 0.1 10^3/uL (0.0-0.2); BASO % 0.5 % (0.0-1.0); EOS # 0.3 10^3/uL (0.0-0.50); EOS % 2.6 % (0.0-3.0); HEMATOCRIT 47.6 % (36.0-47.0); HEMOGLOBIN 15.4 g/dl (12.0-15.5); LYMPH % 27.7 % (24.0-44.0); MEAN CORPUSCULAR HEMOGLOBIN 33.5 pg (27.0-33.0); MEAN CORPUSCULAR HGB CONC 32.4 g/dl (32.0-36.5); MEAN CORPUSCULAR VOLUME 103.5 fl (80.0-96.0); MONO # 0.7 10^3/uL (0.0-0.8); MONO % 6.4 % (0.0-5.0); NEUTROPHILS # 6.7 10^3/uL (1.8-7.7); NEUTROPHILS % 62.2 % (36.0-66.0); PLATELET COUNT, AUTOMATED 405 10^3/uL (150-450); WHITE BLOOD COUNT 10.8 10^3/uL (4.0-10.0)
[2018-08-20 14:43] LABS: ALT/SGPT 29 U/L (12-78); BILIRUBIN,TOTAL 0.1 MG/DL (0.2-1.0); BLOOD UREA NITROGEN 10 MG/DL (7-18); CALCIUM LEVEL 9.2 MG/DL (8.5-10.1); CARBON DIOXIDE LEVEL 25 MEQ/L (21-32); CHLORIDE LEVEL 106 MEQ/L (98-107); CHOLESTEROL LEVEL 167 MG/DL (<200); CHOLESTEROL RISK RATIO 5.566 (<5); CREATININE FOR GFR 0.63 MG/DL (0.55-1.30); GLOMERULAR FILTRATION RATE > 60.0 (>51); GLUCOSE, FASTING 84 MG/DL (70-100); HDL CHOLESTEROL 30 MG/DL (>40); MAGNESIUM LEVEL 2.7 MG/DL (1.8-2.4); NON-HDL-C 137 MG/DL; POTASSIUM SERUM 4.5 MEQ/L (3.5-5.1); SODIUM LEVEL 138 MEQ/L (136-145); TOTAL PROTEIN 7.4 GM/DL (6.4-8.2); TRIGLYCERIDES LEVEL 428 MG/DL (<150)
[2018-08-20 14:45] LABS: INR 2.07; PROTHROMBIN TIME 23.1 SECONDS (11.8-14.0)
== END ==
LOC: M LAB REF 11:51
PROVIDERS: ATTEND Internal Medicine Cardiovascular Disease
DX: I48.2 Chronic atrial fibrillation (principal)

== ENCOUNTER → 2018-08-20 | Outpatient (REF) | payer OTHER ==
[2018-08-26 14:08] LABS: D001-IgE D pteronyssinus <0.10 kU/L (Class 0); E001-IgE Cat Epith/Dander < 0.10 kU/L (Class 0); E005-IgE Dog Dander < 0.10 kU/L (Class 0); G002-IgE Bermuda Grass < 0.10 kU/L (Class 0); G008-IgE Kentucky Bluegrass < 0.10 kU/L (Class 0); M001-IgE Penicillium chrysogen < 0.10 kU/L (Class 0); M002 IgE Cladosporium herbaru < 0.10 kU/L (Class 0); M003 IgE Aspergillus fumigatu < 0.10 kU/L (Class 0); M006-IgE Alternaria alternata < 0.10 kU/L (Class 0); T001-IgE Maple/Box Elder < 0.10 kU/L (Class 0); T006-IgE Cedar, Mountain < 0.10 kU/L (Class 0); T007-IgE Oak, White < 0.10 kU/L (Class 0); T008-IgE Elm, American < 0.10 kU/L (Class 0); T070-IgE White Mulberry < 0.10 kU/L (Class 0); W001-IgE Ragweed, Short < 0.10 kU/L (Class 0); W009-IgE Plantain, English < 0.10 kU/L (Class 0); W014-IgE Pigweed, Rough < 0.10 kU/L (Class 0); W018-IgE Sheep Sorrel < 0.10 kU/L (Class 0)
== END ==
LOC: M SFHCLERA 13:49
PROVIDERS: ATTEND Family Medicine
DX: J30.2 Other seasonal allergic rhinitis (principal)

== ENCOUNTER → 2018-09-11 | Outpatient (REF) | payer OTHER | LOC: M LAB REF 13:40 | PROVIDERS: ATTEND Internal Medicine Cardiovascular Disease | DX: I48.2 Chronic atrial fibrillation (principal); Z79.01 Long term (current) use of anticoagulants ==

== ENCOUNTER → 2018-09-12 | Outpatient (CLI) | payer OTHER ==
[~2018-09-12] MED LIST changes: +ACET500T15 PO; +ALTEPLASE 2 MG/2 ML VIAL (J2997 PER 1MG) As Ordered ONE; +BISO5TAB14 PO; -BISO5TAB5 PO; +DIPH50CA PO; +DRIS50003 PO; -EPIP0.3I2 IJ; +EPIP0.3I2 IM; +LIDOCAINE 1% MDV 20ML VIAL As Ordered ONE; +LOPE2TAB12 PO; +NITR0.4D6 TD; +POTA20EL PO; +ROPI0.5T PO; +VENTAER INH; +diphenhydrAMINE INJ 50MG/ML VIAL (J1200) As Ordered ONE
[2018-09-12 10:16] VITALS: BP 132/66
[2018-09-12 10:58] LABS: BASO # 0.1 10^3/uL (0.0-0.2); BASO % 0.4 % (0.0-1.0); EOS # 0.1 10^3/uL (0.0-0.50); EOS % 0.9 % (0.0-3.0); HEMATOCRIT 47.8 % (36.0-47.0); HEMOGLOBIN 15.3 g/dl (12.0-15.5); LYMPH % 15.4 % (24.0-44.0); MEAN CORPUSCULAR HEMOGLOBIN 32.6 pg (27.0-33.0); MEAN CORPUSCULAR VOLUME 101.7 fl (80.0-96.0); MONO # 0.6 10^3/uL (0.0-0.8); MONO % 4.3 % (0.0-5.0); NEUTROPHILS # 10.3 10^3/uL (1.8-7.7); NEUTROPHILS % 78.2 % (36.0-66.0); PLATELET COUNT, AUTOMATED 391 10^3/uL (150-450); WHITE BLOOD COUNT 13.1 10^3/uL (4.0-10.0)
[2018-09-12 11:08] LABS: INR 1.94; PROTHROMBIN TIME 21.9 SECONDS (11.8-14.0)
--- NOTE | 2018-09-12 15:36 | ROOPDOC ---
[facility] Report Of Operation Report of Operation DATE OF PROCEDURE: 09/12/18 PREPROCEDURE DIAGNOSES: port malfunction POSTPROCEDURE DIAGNOSES: port malfunction PROCEDURE: Right IJ port malfunction Findings: Right IJ port does not aspirate but flushes easily. Procedure: 3 mg of TPA was injected into the right IJ port. This was left to dwell for 1 hour. After this, the port aspirate and flushes freely. The catheter was locked with 500 units of heparin. The patient tolerated the procedure well. The patient was discharged in stable condition. ESTIMATED BLOOD LOSS: Approximately [< 5] mL. COMPLICATIONS: none Thank you for this referral ANYI DIAZ MD Sep 12, 2018 15:35
--- NOTE | 2018-09-16 12:19 | REP ---
Right IJ port malfunction Findings: Right IJ port does not aspirate but flushes easily. Procedure: 3 mg of TPA was injected into the right IJ port. This was left to dwell for 1 hour. After this, the port aspirate and flushes freely. The catheter was locked with 500 units of heparin. The patient tolerated the procedure well. The patient was discharged in stable condition. Thank you for this referral Electronically Signed by Suzanne Evans MD 09/12/2018 03:31 P
== END ==
LOC: M IRPRO 09:48
PROVIDERS: ATTEND Family Medicine
DX: T82.598A Other mechanical complication of other cardiac and vascular devices and implants, initial encounter (principal); X58.XXXA Exposure to other specified factors, initial encounter; Y93.9 Activity, unspecified; Y92.9 Unspecified place or not applicable; Y99.9 Unspecified external cause status
CPT/HCPCS: 36415; 36593; 85025; 85610; J2997

== ENCOUNTER → 2018-10-17 | Outpatient (CLI) | payer OTHER ==
[~2018-10-17] MED LIST changes: -ACET500T15 PO; -ALTEPLASE 2 MG/2 ML VIAL (J2997 PER 1MG) As Ordered ONE; -BISO5TAB14 PO; +BISO5TAB5 PO; -DIPH50CA PO; -DRIS50003 PO; +EPIP0.3I2 IJ; -EPIP0.3I2 IM; -LIDOCAINE 1% MDV 20ML VIAL As Ordered ONE; -LOPE2TAB12 PO; -NITR0.4D6 TD; -POTA20EL PO; -ROPI0.5T PO; -VENTAER INH; -diphenhydrAMINE INJ 50MG/ML VIAL (J1200) As Ordered ONE
--- NOTE | 2018-10-17 14:40 | REP ---
REASON: Pain after trauma. COMPARISON: None. Vertebral body height and alignment is within normal limits. There is anterior lipping at every level. The disc spaces are minimally narrowed at every level. There has been previous median sternotomy. The pedicles appear intact bilaterally. IMPRESSION: Mild degenerative changes on this limited plain film exam. Electronically Signed by Frederick Ross DO 10/17/2018 02:56 P
--- NOTE | 2018-10-17 14:40 | REP ---
REASON FOR EXAM: Pain after trauma. Three limited views were obtained. There is mild posterior disc space narrowing at every level. There is minimal anterior lipping. There is incidental limbus vertebral body involving the inferior endplate of L4. Vertebral body height and alignment is within normal limits. The pedicles are intact bilaterally. IMPRESSION: Minimal chronic changes on this limited exam. Electronically Signed by Frederick Ross DO 10/17/2018 02:56 P
== END ==
LOC: M LRY 08:44
PROVIDERS: ATTEND Family Medicine
DX: M54.5 Low back pain (principal); Z91.81 History of falling

== ENCOUNTER → 2018-10-31 | Outpatient (REF) | payer OTHER ==
[~2018-10-31] MED LIST changes: +ACET500T15 PO; +BISO5TAB14 PO; -BISO5TAB5 PO; +DIPH50CA PO; +DRIS50003 PO; -EPIP0.3I2 IJ; +EPIP0.3I2 IM; +LOPE2TAB12 PO; +NITR0.4D6 TD; +POTA20EL PO; +ROPI0.5T PO; +VENTAER INH
[2018-10-31 13:03] LABS: INR 2.26; PROTHROMBIN TIME 24.8 SECONDS (11.8-14.0)
== END ==
LOC: M LAB REF 11:55
PROVIDERS: ATTEND Internal Medicine Cardiovascular Disease
DX: Z79.01 Long term (current) use of anticoagulants (principal)

== ENCOUNTER → 2018-11-18 | Outpatient (POV) | payer OTHER ==
[~2018-11-18] VITALS: Ht 160 cm; Wt 120.0 kg
[~2018-11-18] MED LIST changes: -ACET500T15 PO; -BISO5TAB14 PO; +BISO5TAB9 PO; -DIPH50CA PO; -DRIS50003 PO; +EPIP0.3I2 IJ; -EPIP0.3I2 IM; -LOPE2TAB12 PO; -NITR0.4D6 TD; -POTA20EL PO; -ROPI0.5T PO; -VENTAER INH
[2018-11-18 09:10] VITALS: BP 137/60
--- NOTE | 2018-11-19 10:33 | IRCOV ---
[facility] IR Consult Office Visit IR Consult Office Visit DATE: Nov 18, 2018 REASON FOR CONSULTATION/CHIEF COMPLAINT: Malfunctioning port. HISTORY OF PRESENT ILLNESS: 48-year-old lady with aortic valve replacement, CABG, atrial fibrillation, CVA, on long-term Coumadin therapy presents for right-sided port malfunction. Port was placed couple years ago but has been malfunctioning for several months now. Was seen in IR and the port was injected with TPA after which it functioned for a couple weeks and then started malfunctioning again. No fevers or chills. No arm or neck swelling. No chest wall varicosities. No increased neck or facial swelling. Patient has baseline short of breath on oxygen. ALLERGIES: Please see below. HOME MEDICATIONS: Please see below. PAST MEDICAL HISTORY: 1. Multiple sclerosis. 2. Crohn's disease. 3. Irritable bowel. 4. Herniated discs 5. Complex regional pain syndrome. 6. Upper nerve atrophy. 7. Migraines. 8. Panic attacks. 9. PTSD. 10. Rheumatoid arthritis. 11. Restless leg. 12. TIA. 13. Myocardial infarction. 14. Aortic valve placement. 15. History of heart stents. 16. Port-A-Cath placed couple of years ago. 7. CHF, CAD, A. fib, [place] 3, COPD. PAST SURGICAL HISTORY: 1. Lumbrical hernia repair 2. Appendectomy. 3. Tubal ligation 4. Hysterectomy. 5. Aortic valve replacement and cardiac bypass. 6. Cardiac stents. 7. Cholecystectomy. FAMILY HISTORY: Heart disease. SOCIAL HISTORY: Lives at home with . Quit smoking 5 years ago. Denies alcohol. REVIEW OF SYSTEMS: Multiple symptoms associated with multiple sclerosis and heart disease. Currently cannot undergo any neurologic or cardiac treatments without a functioning port. PHYSICAL EXAMINATION: VITAL SIGNS: Please see below. GENERAL APPEARANCE: Comfortable at rest. On baseline oxygen. Able to complete full sentences. HEENT: No scleral icterus. Partially blind. RESPIRATORY: Wheeze bilateral. CARDIOVASCULAR: Normal rate. Right chest wall port site without redness or tenderness. Port is palpable. ABDOMEN: Soft nontender. EXTREMITIES: Pedal edema. NEUROLOGICAL: Alert and oriented. Lower extremity weakness and sensory disturbance. PSYCHIATRIC: Appropriate to circumstance. LABORATORY DATA: Please see below. Imaging: I personally reviewed the chest x-ray from June 2018. Short right subclavian port, tip is way high up in the proximal SVC brachiocephalic junction. ASSESSMENT/PLAN: 48-year-old female with multiple medical problems needs long- term port access for therapies. All therapies are currently on hold until she has a functioning port. Current right-sided port which is in for a couple of years but malfunctioning for months now is retracted all the way back to the SVC brachiocephalic junction. This needs to be removed to prevent risk of venous stenosis. I will place a new port on the left side as soon as possible. Both port removal and port placement procedures will be done in the same setting. However, I do require her to be admitted to the hospital under the hospitalist team, for 48 hours prior to the procedure. This is so that she can be bridged to heparin for coverage during the procedure and then bridged back to Coumadin prior to discharge. I spent 30 minutes in consultation with the patient. Thank you for this referral. Allergies Coded Allergies: Anesthetics - Amide Type (Verified Allergy, Unknown, SPINAL ANESTHESIA, 06/19/18) Blackberry (Verified Allergy, Unknown, 07/24/16) Contrast Media (Verified Allergy, Unknown, 06/19/18) RASH Quinolones (Verified Allergy, Unknown, RASH, 06/19/18) Serotonin 5HT-3 Antagonists (Verified Allergy, Unknown, 06/19/18) Sulfa (Sulfonamide Antibiotics) (Verified Allergy, Unknown, 06/19/18) RASH/SOB TAPE (Verified Allergy, Unknown, 06/19/18) acetaminophen (Verified Allergy, Unknown, VOMITING, 06/19/18) aspirin (Verified Allergy, Unknown, ANAPHYLAXIS, 06/19/18) butorphanol (Verified Allergy, Unknown, SEVERE RASH, 06/19/18) ciprofloxacin (Verified Allergy, Unknown, RASH AND DIFFICULTY BREATHING, 06/19/18) codeine (Verified Allergy, Unknown, RASH, 06/19/18) grass pollen (Verified Allergy, Unknown, GRASSES/HAY, 06/19/18) latex (Verified Allergy, Unknown, RASH, DIFFICULITY BREATHING, 06/19/18) metoclopramide (Verified Allergy, Unknown, 06/19/18) metronidazole (Verified Allergy, Unknown, ANAPHYLAXIS, 06/19/18) morphine (Verified Allergy, Unknown, SEVERE RASH, 06/19/18) nalbuphine (Verified Allergy, Unknown, 06/19/18) RASH ranitidine (Verified Allergy, Unknown, RASH, 06/19/18) shellfish derived (Verified Allergy, Unknown, 06/19/18) strawberry (Verified Allergy, Unknown, 06/19/18) sumatriptan (Verified Allergy, Unknown, RASH AND HYPERTENSION, 06/19/18) terbutaline (Verified Allergy, Unknown, RASH, 06/19/18) tramadol (Verified Allergy, Unknown, 06/19/18) VOMITING, HEADACHE, CAN'T MOVE hydromorphone (Verified Adverse Reaction, Unknown, 06/19/18) SEVERE VOMITING Home Medications Scheduled Alprazolam (Xanax Xr), 0.5 MG PO TID, (Reported) Atorvastatin Calcium (Lipitor), 20 MG PO DAILY, (Reported) Bisoprolol Fumarate (Bisoprolol Fumarate), 2.5 MG PO BID, (Reported) Cholecalciferol (Vitamin D3) (Vitamin D3), 50,000 UNIT PO weekly, (Reported) Clopidogrel Bisulfate (Plavix), 75 MG PO DAILY, (Reported) Cyanocobalamin (Vitamin B-12) (Vitamin B-12), 100 MCG PO DAILY, (Reported) Diphenhydramine Hcl (Benadryl Allergy), 50 MG PO TID, (Reported) Fenofibrate (Fenofibrate), 150 MG PO DAILY, (Reported) Furosemide (Lasix), 80 MG PO BID, (Reported) Nitroglycerin (Nitroglycerin Patch), 0.8 MG TD DAILY, (Reported) Potassium Chloride (Potassium Chloride), 40 MEQ PO BID, (Reported) Warfarin Sodium (Coumadin), 5 MG PO mon, sat, sat, (Reported) Warfarin Sodium (Coumadin), 2.5 MG PO sat, , , , (Reported) [immodium], 2 MG PO Q4HP, (Reported) Scheduled PRN Insulin Human Lispro (Humalog), 1 UNITS SC TID PRN for SEE LABEL COMMENTS, (Reported) Nitroglycerin (Nitrostat), 0.4 MG SL Q5MP PRN for ANGINA, (Reported) Ondansetron HCl (Zofran), 8 MG PO Q6HP PRN for NAUSEA, (Reported) Oxycodone HCl/Acetaminophen (Oxycodone-Acetaminophen 5-325), 1 TAB PO Q6H PRN for PAIN, (Reported) Ropinirole HCl (Requip), 1 MG PO BID PRN for PAIN, (Reported) Miscellaneous Medications Epinephrine (Epipen 2-Venancio), 0.3 MG IJ, (Reported) VS, I&O, 24H, Fishbone Vital Signs/I&O Vital Signs Date Time Temp Pulse Resp B/P (MAP) Pulse Ox O2 Delivery O2 Flow Rate FiO2 11/18/18 09:10 97.2 67 18 137/60 (85) 94 2.0 ANYI DIAZ MD Nov 19, 2018 10:33
== END ==
LOC: M IRPOV 09:02
PROVIDERS: ATTEND Radiology Diagnostic Radiology
DX: T82.598A Other mechanical complication of other cardiac and vascular devices and implants, initial encounter (principal); I48.91 Unspecified atrial fibrillation; G35 Multiple sclerosis; K58.8 Other irritable bowel syndrome; K50.90 Crohn's disease, unspecified, without complications; G90.50 Complex regional pain syndrome I, unspecified; G43.909 Migraine, unspecified, not intractable, without status migrainosus; F41.0 Panic disorder [episodic paroxysmal anxiety]; F43.10 Post-traumatic stress disorder, unspecified; M06.9 Rheumatoid arthritis, unspecified; G25.81 Restless legs syndrome; I25.2 Old myocardial infarction; I50.9 Heart failure, unspecified; I25.10 Atherosclerotic heart disease of native coronary artery without angina pectoris; J44.9 Chronic obstructive pulmonary disease, unspecified; Z95.1 Presence of aortocoronary bypass graft; Z95.4 Presence of other heart-valve replacement; Z95.5 Presence of coronary angioplasty implant and graft; Z86.73 Personal history of transient ischemic attack (TIA), and cerebral infarction without residual deficits; Z79.01 Long term (current) use of anticoagulants; Z90.710 Acquired absence of both cervix and uterus; Z87.891 Personal history of nicotine dependence

== ENCOUNTER 2018-11-26 07:28 | Inpatient (IN) | payer OTHER ==
[~2018-11-26] VITALS: Ht 160 cm; Wt 122.3 kg
[~2018-11-26 07:28] MED LIST changes: -EPIP0.3I2 IJ; +EPIP0.3I2 IM
[2018-11-26 14:50] VITALS: BP 170/88
[2018-11-26] MEDS ORDERED: HEPARIN DRIP 25,000 UNITS in IV 1 EA IV SCH (14:52)
[2018-11-26] MEDS ORDERED: HEPARIN SOD (PORCINE) 5000 UNITS/ML VIAL IV PRN (15:00)
[2018-11-26 15:18] LABS: HEMATOCRIT 46.4 % (36.0-47.0); HEMOGLOBIN 15.4 g/dl (12.0-15.5); MEAN CORPUSCULAR HEMOGLOBIN 32.2 pg (27.0-33.0); MEAN CORPUSCULAR HGB CONC 33.2 g/dl (32.0-36.5); MEAN CORPUSCULAR VOLUME 97.1 fl (80.0-96.0); PLATELET COUNT, AUTOMATED 418 10^3/uL (150-450); RED BLOOD COUNT 4.78 10^6/uL (4.00-5.40); WHITE BLOOD COUNT 14.1 10^3/uL (4.0-10.0)
[2018-11-26] MEDS ORDERED: ROPI0.5T PO (15:33)
[2018-11-26] MEDS ORDERED: NITR0.4D6 TD (15:33)
[2018-11-26] MEDS ORDERED: ACET500T15 PO (15:33)
[2018-11-26] MEDS ORDERED: DRIS50003 PO (15:33)
[2018-11-26] MEDS ORDERED: LOPE2TAB12 PO (15:33)
[2018-11-26] MEDS ORDERED: POTA20EL PO (15:33)
[2018-11-26 15:34] LABS: PROTHROMBIN TIME 55.4 SECONDS (11.8-14.0)
[2018-11-26 15:36] LABS: ALBUMIN 4.4 GM/DL (3.2-5.2); ALT/SGPT 26 U/L (12-78); BILIRUBIN,TOTAL 0.5 MG/DL (0.2-1.0); BLOOD UREA NITROGEN 11 MG/DL (7-18); CALCIUM LEVEL 9.7 MG/DL (8.5-10.1); CARBON DIOXIDE LEVEL 23 MEQ/L (21-32); CHLORIDE LEVEL 105 MEQ/L (98-107); GLOMERULAR FILTRATION RATE > 60.0 (>51); GLUCOSE, FASTING 104 MG/DL (70-100); POTASSIUM SERUM 4.1 MEQ/L (3.5-5.1); SODIUM LEVEL 138 MEQ/L (136-145); TOTAL PROTEIN 7.6 GM/DL (6.4-8.2)
[2018-11-26] MEDS ORDERED: VENTAER INH (15:36)
[2018-11-26] MEDS ORDERED: DIPH50CA PO (15:36)
[2018-11-26 16:24] LABS: INR 6.18
[2018-11-26] MEDS ORDERED: ACETAMINOPHEN 500 MG TAB PO PRN (16:30)
[2018-11-26] MEDS ORDERED: NITROGLYCERIN 0.4 MG SUBL TABLET SL PRN (16:30)
[2018-11-26] MEDS ORDERED: ONDANSETRON 4 MG TAB (S0181) PO PRN (16:30)
[2018-11-26] MEDS: FUROSEMIDE 40 MG TAB PO SCH (17:00)
--- NOTE | 2018-11-26 17:32 | HPE ---
DATE OF ADMISSION: 11/26/2018 PRINCIPAL DIAGNOSIS: Port malfunction. PRIMARY CARE PHYSICIAN: Dr. Arianne Watson, [facility]. OPEN SOAPER TENDER: Mr. Evans. HISTORY: The patient is admitted to the hospitalist service for bridge therapy per recommendation of Dr. Evans prior to her replacing a malfunctioning port-a-cath. The patient has a complicated past medical history. She has had aortic valve replacement. Unfortunately their office records to do not specify whether this is mechanical aortic valve or bioprosthetic aortic valve, by exam probably bioprosthetic. She is on Warfarin either for the aortic valve or more likely because history of atrial fibrillation. She also has a history of a stroke. She has multiple sclerosis, history of Crohn's disease, lumbar herniated disc disease, complex regional pain syndrome, optic nerve atrophy, migraine headaches, panic attacks, PTSD, rheumatoid arthritis, restless leg syndrome, history of stroke, myocardial infarction coronary artery bypass surgery. Coronary artery stenting, COPD, and congestive heart failure, (ejection fraction not specified). ALLERGIES: See list. PAST SURGICAL HISTORY: Umbilical hernia repair. Right ankle repair, D and C with laparoscopy, appendectomy, tubal cyst removal, hysterectomy, right knee repair, aortic valve replacement, coronary artery bypass 11/14, coronary artery stent specified vessels 08/15 and a loop recorder 06/16, coronary artery stent unspecified vessel 11/16, cholecystectomy, transesophageal echo with loop recorder removed 12/19. FAMILY HISTORY: Father had heart disease. Mother diabetes and hypertension, breast cancer at age 33. Daughter with epilepsy, rheumatoid arthritis, bipolar disorder, agoraphobia and asthma. SOCIAL HISTORY: Nonsmoker. No alcohol use. . Spouse and child at home. REVIEW OF SYSTEMS: No chest pain, shortness of breath, rectal bleeding, urinary bleeding, epistaxis, fever, chills, night sweats. MEDICATIONS: Tylenol as needed, albuterol as needed, Xanax 0.5 mg three times a day, atorvastatin 20 mg daily, bisoprolol 2.5 mg twice a day, Plavix 75 mg daily, B12 1,000 mcg daily, Benadryl 15 mg three times a day, Epi-Pen as needed, fenofibrate 150 mg daily, Furosemide 48 mg twice a day, Lispro on a sliding scale, Imodium as needed, Nitroglycerin patch 0.8 mg daily topically, Zofran 8 mg every 6 hours as needed, oxycodone acetaminophen four times a day as needed, potassium chloride liquid 20 mEq per tablespoon-2 tablespoons twice a day, Requip 0.5 mg at bedtime, Drisdol 50,000 units weekly, Warfarin 5 mg 4 days a week 2.5 mg 3 days a week. PHYSICAL EXAMINATION: Vital signs per flow sheet. GENERAL APPEARANCE: She is alert, conversant, no distress. HEENT: Pupils are equal and reactive to light. Tympanic membranes normal. Oropharynx benign. NECK: No masses. HEART: Regular rate and rhythm. No murmur. ABDOMEN: Soft, nontender. No masses. EXTREMITIES: Trace peripheral edema. Normal strength in the arms and legs. LABS: White count 14.1, hemoglobin 15.4, platelets 418. Sodium 138, potassium 4.1, BUN 11, creatinine 0.7, glucose 104, last hemoglobin was 07/2018 was 6.3%. INR today is pending. IMPRESSION: 1. Port malfunction. The patient is being admitted to the hospitalist service under the direction of Dr. Evans for bride therapy with intravenous heparin with plans for her to work on malfunctioning port in 2 days. I have ordered IV heparin with no boluses. The patient's anticoagulated with Warfarin. Anticoagulant profile still pending. Warfarin dose will be adjusted per protocol. 2. Hyperlipidemia. Continue atorvastatin 20 mg daily. 3. Hypertensive heart disease. Continue bisoprolol 2.5 mg twice a day. 4. Coronary artery disease. Continue Clopidogrel 75 mg daily. 5. History of congestive heart failure. Systolic versus diastolic nonspecified. Continue her Furosemide 80 mg twice a day. 6. Diabetes, sliding scale insulin based upon her fingerstick blood sugars ordered. Restless leg syndrome. Continue Requip. 7. Chronic anxiety. Continue her Xanax 0.5 mg three times a day, hold for excessive sedation. 8. Chronic diarrhea. Continue her Imodium on an as needed basis.
[2018-11-26] MEDS: PERCOCET 5MG/325MG TAB PO SCH ×2 (17:38→21:42)
[2018-11-26 17:59] VITALS: BP 143/71
[2018-11-26] MEDS: ALPRAZolam 0.5 MG TAB PO SCH (20:16)
[2018-11-26] MEDS: POTASSIUM CHLORIDE 10% LIQ 20 MEQ/15 ML UDC PO SCH (21:40)
[2018-11-26] MEDS: diphenhydrAMINE 50 MG CAP PO SCH (21:41)
[2018-11-26] MEDS: rOPINIRole 0.25 MG TAB(REQUIP) PO SCH (21:43)
[2018-11-26] MEDS: **NOTE PATIENT COMMENT** MISC XX SCH (21:43)
[2018-11-26] MEDS: BISOPROLOL FUMARATE 5 MG TAB PO SCH (21:53)
[2018-11-26 22:00] VITALS: BP 141/71
[2018-11-27] MEDS: PERCOCET 5MG/325MG TAB PO SCH (04:49)
[2018-11-27 06:00] VITALS: BP 139/73
[2018-11-27 07:19] LABS: BASO % 0.3 % (0.0-1.0); EOS # 0.1 10^3/uL (0.0-0.5); EOS % 1.1 % (0.0-3.0); HEMATOCRIT 44.6 % (36.0-47.0); HEMOGLOBIN 14.4 g/dl (12.0-15.5); LYMPH # 2.2 10^3/uL (1.5-5.0); LYMPH % 18.6 % (24.0-44.0); MEAN CORPUSCULAR HEMOGLOBIN 32.1 pg (27.0-33.0); MEAN CORPUSCULAR HGB CONC 32.3 g/dl (32.0-36.5); MEAN CORPUSCULAR VOLUME 99.6 fl (80.0-96.0); MONO # 0.7 10^3/uL (0.0-0.8); MONO % 5.8 % (0.0-5.0); NEUTROPHILS # 8.7 10^3/uL (1.5-8.5); NEUTROPHILS % 73.4 % (36.0-66.0); PLATELET COUNT, AUTOMATED 387 10^3/uL (150-450); RED BLOOD COUNT 4.48 10^6/uL (4.00-5.40); WHITE BLOOD COUNT 11.8 10^3/uL (4.0-10.0)
[2018-11-27 07:25] LABS: INR 1.47; PROTHROMBIN TIME 17.6 SECONDS (11.8-14.0)
[2018-11-27 07:39] LABS: BLOOD UREA NITROGEN 10 MG/DL (7-18); CALCIUM LEVEL 8.7 MG/DL (8.5-10.1); CARBON DIOXIDE LEVEL 25 MEQ/L (21-32); CHLORIDE LEVEL 107 MEQ/L (98-107); CREATININE FOR GFR 0.73 MG/DL (0.55-1.30); GLOMERULAR FILTRATION RATE > 60.0 (>51); GLUCOSE, FASTING 139 MG/DL (70-100); POTASSIUM SERUM 3.9 MEQ/L (3.5-5.1); SODIUM LEVEL 139 MEQ/L (136-145)
[2018-11-27 08:23] VITALS: BP 138/74
[2018-11-27] MEDS: POTASSIUM CHLORIDE 10% LIQ 20 MEQ/15 ML UDC PO SCH ×2 (08:32→20:28)
[2018-11-27] MEDS: ALPRAZolam 0.5 MG TAB PO SCH ×3 (08:33→20:29)
[2018-11-27] MEDS: BISOPROLOL FUMARATE 5 MG TAB PO SCH ×2 (08:33→20:29)
[2018-11-27] MEDS: FUROSEMIDE 40 MG TAB PO SCH ×2 (08:33→16:30)
[2018-11-27] MEDS: diphenhydrAMINE 50 MG CAP PO SCH ×3 (08:33→20:29)
[2018-11-27] MEDS: CLOPIDOGREL 75 MG TAB PO SCH (08:33)
[2018-11-27] MEDS: FENOFIBRATE 145 MG TAB (TRICOR) PO SCH (08:34)
[2018-11-27] MEDS: CYANOCOBALAMIN 500 MCG TAB PO SCH (08:34)
[2018-11-27] MEDS: ATORVASTATIN 20 MG TAB PO SCH (08:34)
[2018-11-27] MEDS: NITROGLYCERIN 0.4 MG/HR PATCH TD SCH (08:35)
[2018-11-27] MEDS: HEPARIN DRIP 25,000 UNITS in IV 1 EA IV SCH ×2 (09:39→23:59)
[2018-11-27] MEDS: PERCOCET 5MG/325MG TAB PO PRN ×3 (10:47→22:16)
--- NOTE | 2018-11-27 13:53 | IPNPDOC ---
Text Note Date of Service The patient was seen on 11/27/18. NOTE Subjective: Patient is a 48 year old female with PMHx of A. fib (on Warfarin), AV replacement (possible bioprosthetic), CAD s/p CABG (Hx of [place]), CHF, COPD, Hx of CVA, Crohn's disease, Multiple sclerosis, Lumbar herniated disc disease, Complex regional pain syndrome, Rheumatoid arthritis, Optic nerve atrophy, Migraine headaches, RLS, Panic attacks, PTSD , who presented to [facility] for replacement of her nonfunctioning Port-A-Cath. Patient was admitted to hospitalist service for bridging therapy with heparin drip in anticipation of h er surgery on 11/28/2018. Patient was seen and examined at the bedside. Patient reports that she has had no events overnight. Denies chest pain, short of breath, palpitations. Reports that she had some concerns with the timing of her pain medications which has already been corrected. Objective: Vitals (See below) General: Lying in bed, no acute distress, comfortable, AAOx3 HEENT: NC, AT CVS: RRR, +S1S2 Lungs: Fair air entry b/l, -w/r/r Abdomen: Soft, ND, NT Extremities: - Edema, - Calf tenderness Assessment and plan: Port-A-Cath malfunction - Patient is scheduled for intervention on 11/28/[address] Evans - Patient was admitted with supra-therapeutic INR - Coumadin was held from admission; patient will be transition to heparin drip this morning after determining her INR was subtherapeutic - Dr. Hopkins will perform procedure tomorrow A. fib / AV replacement (possibly bioprosthetic) - c/w rate control with Bisoprolol - Anticoagulation with Warfarin has been held; transitioned to Heparin drip CAD s/p CABG - Hx of [place] - c/w Plavix, - c/w Nitroglycerin as ordered CHF - Does not appear to show any signs of fluid overload - Continue with furosemide DLP - c/w Fenofibrate and Atorvastatin DM2 - c/w ISS COPD - No evidence of exacerbation - Continue with inhaled therapy as ordered Hx of CVA - possibly 2/2 Atrial fibrillation (as per patient) - c/w Plavix and anticoagulation Crohn's disease - Patient with that. She has chronic diarrhea Multiple sclerosis / Optic nerve atrophy Lumbar herniated disc disease / Complex regional pain syndrome / Rheumatoid arthritis - Continue with pain medication as ordered Migraine headaches - c/w Tylenol and pain regimen as ordered RLS - c/w Ropinirole Anxiety / Panic attacks / PTSD - c/w Alprazolam DVT prophylaxis - c/w full anticoagulation VS,Fishbone, I+O VS, Fishbone, I+O Laboratory Tests 11/26/18 14:50 Red Blood Count 4.78, Mean Corpuscular Volume 97.1 H, Mean Corpuscular Hemoglobin 32.2, Mean Corpuscular Hemoglobin Concent 33.2, Red Cell Distribution Width 13.0, Calcium Level 9.7, Aspartate Amino Transf (AST/SGOT) 23, Alanine Aminotransferase (ALT/SGPT) 26, Alkaline Phosphatase 61, Total Bilirubin 0.5, Total Protein 7.6, Albumin 4.4 11/27/18 06:33 Red Blood Count 4.48, Mean Corpuscular Volume 99.6 H, Mean Corpuscular Hemoglobin 32.1, Mean Corpuscular Hemoglobin Concent 32.3, Red Cell Distribution Width 13.2, Calcium Level 8.7, Neutrophils (%) (Auto) 73.4 H, Lymphocytes (%) (Auto) 18.6 L, Monocytes (%) (Auto) 5.8 H, Eosinophils (%) (Auto) 1.1, Basophils (%) (Auto) 0.3, Neutrophils # (Auto) 8.7 H, Lymphocytes # (Auto) 2.2, Monocytes # (Auto) 0.7, Eosinophils # (Auto) 0.1, Basophils # (Auto) 0.0 Vital Signs Date Time Temp Pulse Resp B/P (MAP) Pulse Ox O2 Delivery O2 Flow Rate FiO2 11/27/18 11:24 2.0 11/27/18 11:17 18 11/27/18 08:33 80 132/79 11/27/18 08:23 97.4 92 I&O- Last 24 Hours up to 6 AM 11/27/18 06:00 Intake Total 700 ml Output Total 0 ml Balance 700 ml EDUAR BRENNAN MD Nov 27, 2018 13:53
[2018-11-27 14:00] VITALS: BP 146/77
[2018-11-27] MEDS: HEPARIN SOD (PORCINE) 5000 UNITS/ML VIAL IV PRN (16:36)
[2018-11-27 20:00] VITALS: BP 104/52
[2018-11-27] MEDS: rOPINIRole 0.25 MG TAB(REQUIP) PO SCH (20:29)
[2018-11-27] MEDS: **NOTE PATIENT COMMENT** MISC XX SCH (20:31)
[2018-11-28] MEDS: PERCOCET 5MG/325MG TAB PO PRN ×4 (04:22→23:11)
[2018-11-28 04:44] LABS: BASO # 0.1 10^3/uL (0.0-0.2); BASO % 0.6 % (0.0-1.0); EOS # 0.2 10^3/uL (0.0-0.5); EOS % 1.5 % (0.0-3.0); HEMATOCRIT 45.9 % (36.0-47.0); HEMOGLOBIN 14.8 g/dl (12.0-15.5); LYMPH % 33.5 % (24.0-44.0); MEAN CORPUSCULAR HEMOGLOBIN 32.5 pg (27.0-33.0); MEAN CORPUSCULAR HGB CONC 32.2 g/dl (32.0-36.5); MEAN CORPUSCULAR VOLUME 100.7 fl (80.0-96.0); MONO % 8.1 % (0.0-5.0); NEUTROPHILS # 6.6 10^3/uL (1.5-8.5); NEUTROPHILS % 55.5 % (36.0-66.0); PLATELET COUNT, AUTOMATED 367 10^3/uL (150-450); RED BLOOD COUNT 4.56 10^6/uL (4.00-5.40); WHITE BLOOD COUNT 11.8 10^3/uL (4.0-10.0)
[2018-11-28 04:54] LABS: INR 1.18; PROTHROMBIN TIME 14.8 SECONDS (11.8-14.0)
[2018-11-28 04:56] LABS: PARTIAL THROMBOPLASTIN TIME 93.1 SECONDS (25.0-38.4)
[2018-11-28 05:02] LABS: BLOOD UREA NITROGEN 14 MG/DL (7-18); CALCIUM LEVEL 9.5 MG/DL (8.5-10.1); CARBON DIOXIDE LEVEL 27 MEQ/L (21-32); CHLORIDE LEVEL 103 MEQ/L (98-107); CREATININE FOR GFR 0.77 MG/DL (0.55-1.30); GLOMERULAR FILTRATION RATE > 60.0 (>51); GLUCOSE, FASTING 108 MG/DL (70-100); POTASSIUM SERUM 4.4 MEQ/L (3.5-5.1); SODIUM LEVEL 138 MEQ/L (136-145)
[2018-11-28] MEDS ORDERED: LIDOCAINE 1% MDV 20ML VIAL As Ordered ONE (06:26)
[2018-11-28] MEDS ORDERED: diphenhydrAMINE INJ 50MG/ML VIAL (J1200) As Ordered ONE ×2 (06:26→08:27)
[2018-11-28] MEDS: diphenhydrAMINE 50 MG CAP PO SCH ×3 (07:44→20:35)
[2018-11-28] MEDS: CYANOCOBALAMIN 500 MCG TAB PO SCH (07:44)
[2018-11-28] MEDS: CLOPIDOGREL 75 MG TAB PO SCH (07:44)
[2018-11-28] MEDS: ATORVASTATIN 20 MG TAB PO SCH (07:44)
[2018-11-28] MEDS: FUROSEMIDE 40 MG TAB PO SCH ×2 (07:45→17:00)
[2018-11-28] MEDS: ALPRAZolam 0.5 MG TAB PO SCH ×3 (07:45→20:36)
[2018-11-28] MEDS: POTASSIUM CHLORIDE 10% LIQ 20 MEQ/15 ML UDC PO SCH ×2 (07:46→20:36)
[2018-11-28] MEDS: NITROGLYCERIN 0.4 MG/HR PATCH TD SCH (07:47)
[2018-11-28] MEDS: FENOFIBRATE 145 MG TAB (TRICOR) PO SCH (07:47)
[2018-11-28] MEDS: BISOPROLOL FUMARATE 5 MG TAB PO SCH ×2 (07:47→20:36)
[2018-11-28] MEDS ORDERED: ceFAZolin 1GM INJ (J0690 PER 500MG) As Ordered ONE (08:27)
[2018-11-28] MEDS ORDERED: MIDAZOLAM INJ 2 MG/2 ML VIAL (J2250) As Ordered ONE ×2 (08:27→09:21)
[2018-11-28] MEDS ORDERED: fentaNYL 100 MCG/2 ML INJECTION (J3010) As Ordered ONE ×2 (08:27→09:21)
--- NOTE | 2018-11-28 08:43 | IRMSE ---
[facility] IR Moderate Sedation Eval. Date and Time Date: Nov 28, 2018 Time: 08:43 ASA Classification ASA Classification: III-Severe systemic dis. Mallampati Score: II NPO: Yes Obstructive Sleep Apnea: Yes Interval Plan: moderate sedation ANYI DIAZ MD Nov 28, 2018 08:43
--- NOTE | 2018-11-28 10:45 | POST-OPPD ---
Postoperative Procedure Note Date Of Procedure: Nov 28, 2018 Time Of Procedure: 10:43 PREOPERATIVE DIAGNOSIS: malfunctioning right port. MS, HF. needs mcc IV access POSTOPERATIVE DIAGNOSIS: malfunctioning right port. MS, HF. needs terminal clerk IV access FINDINGS: malfunctioning right port. port retracted and flipped in soft tissues PROCEDURE: right port removal and left IJ port placed SURGEON: estrada ANESTHESIA: moderate sedation ESTIMATED BLOOD LOSS: < 5 ml COMPLICATIONS: none POSTOPERATIVE CONDITION: stable ANYI DIAZ MD Nov 28, 2018 10:45
[2018-11-28 14:00] VITALS: BP 125/72
--- NOTE | 2018-11-28 15:22 | IPNPDOC ---
Text Note Date of Service The patient was seen on 11/28/18. NOTE Subjective: Patient is a 48 year old female with PMHx of A. fib (on Warfarin), AV replacement (possible bioprosthetic), CAD s/p CABG (Hx of [place]), CHF, COPD, Hx of CVA, Crohn's disease, Multiple sclerosis, Lumbar herniated disc disease, Complex regional pain syndrome, Rheumatoid arthritis, Optic nerve atrophy, Migraine headaches, RLS, Panic attacks, PTSD , who presented to [facility] for replacement of her nonfunctioning Port-A-Cath. Patient was admitted to hospitalist service for bridging therapy with heparin drip in anticipation of h er surgery on 11/28/2018. Patient was seen and examined at the bedside. Patient was seen postprocedure. She denies any significant chest pain or shortness of breath or palpitations. Patient denies nausea, vomiting, abdominal pain or diarrhea, or urinary discomfort. Objective: Vitals (See below) General: Lying in bed, no acute distress, comfortable, AAOx3 HEENT: NC, AT CVS: RRR, +S1S2 Lungs: Fair air entry b/l, no appreciable wheezing, rhonchi or rales Abdomen: Soft, nondistended and nontender Extremities: No evidence of edema, - Calf tenderness Assessment and plan: Port-A-Cath malfunction - Patient is seen postoperatively and denies any chest pain, shortness of breath or palpitations - She denies any significant pain at the site - Coumadin was held from admission; was placed on a Heparin drip - Dr. Hopkins has replaced the Port-A-Cath this morning; heparin drip will resume 2 hours post procedure and Coumadin will be resumed tonight - Anticipate Coumadin to reach therapeutic INR within 2 days; will discontinue heparin drip after therapeutic INR is achieved A. fib / AV replacement (possibly bioprosthetic) - c/w rate control with Bisoprolol - c/w Heparin drip; will resume Coumadin tonight CAD s/p CABG - Hx of [place] - c/w Plavix, - c/w Nitroglycerin as ordered CHF - Does not appear to show any signs of fluid overload - Continue with furosemide DLP - c/w Fenofibrate and Atorvastatin DM2 - c/w ISS COPD - No evidence of exacerbation - Continue with inhaled therapy as ordered Hx of CVA - possibly 2/2 Atrial fibrillation (as per patient) - c/w Plavix and anticoagulation Crohn's disease - Patient with that. She has chronic diarrhea Multiple sclerosis / Optic nerve atrophy Lumbar herniated disc disease / Complex regional pain syndrome / Rheumatoid arthritis - Continue with pain medication as ordered Migraine headaches - c/w Tylenol and pain regimen as ordered RLS - c/w Ropinirole Anxiety / Panic attacks / PTSD - c/w Alprazolam DVT prophylaxis - c/w full anticoagulation Disposition: - Anticipate discharge within 48 hours VSWendi, I+O VSWendi I+O Laboratory Tests 11/28/18 04:28 Red Blood Count 4.56, Mean Corpuscular Volume 100.7 H, Mean Corpuscular Hemoglobin 32.5, Mean Corpuscular Hemoglobin Concent 32.2, Red Cell Distribution Width 13.1, Neutrophils (%) (Auto) 55.5, Lymphocytes (%) (Auto) 33.5, Monocytes (%) (Auto) 8.1 H, Eosinophils (%) (Auto) 1.5, Basophils (%) (Auto) 0.6, Neutrophils # (Auto) 6.6, Lymphocytes # (Auto) 4.0, Monocytes # (Auto) 1.0 H, Eosinophils # (Auto) 0.2, Basophils # (Auto) 0.1, Calcium Level 9.5 Vital Signs Date Time Temp Pulse Resp B/P (MAP) Pulse Ox O2 Delivery O2 Flow Rate FiO2 11/28/18 14:00 98.5 82 18 125/72 (89) 91 11/28/18 11:29 2.0 11/28/18 10:30 93 I&O- Last 24 Hours up to 6 AM 11/28/18 06:00 Intake Total 1266 ml Output Total 0 ml Balance 1266 ml EDUAR BRENNAN MD Nov 28, 2018 15:22
[2018-11-28] MEDS ORDERED: WARFARIN SOD 5 MG TAB PO SCH (17:00)
--- NOTE | 2018-11-28 18:46 | REP ---
IR port removal. IR moderate sedation. Clinical information: Nonfunctioning right chest wall port. Multiple sclerosis. Cardiac disease. Needs long-term IV access. Physician: Dr. Evans. Procedure: The patient was advised of the benefits, risks and alternatives of the procedure and informed consent was obtained. The time-out was performed with verification of the patient's name, MRN, site of procedure and type of procedure to be performed. The patient was positioned in the supine position on the angiographic table. The site was prepped and draped in the usual sterile fashion. Moderate sedation was performed by the physician including the presence of an independent trained observer who assisted and monitored the patient's level of consciousness and physiologic status. Following the administration of Fentanyl and Versed, the physician spent 90 minutes of continuous face to face time with the patient. A director medical safety radiograph reveals a right chest wall port which is retracted back into the brachiocephalic vein. The soft tissues overlying the port pocket were anesthetized with lidocaine. An incision was made over the port using an 15 blade scalpel in the location of the prior incision. The catheter was then freed with blunt dissection and extracted. Pressure was applied to obtain hemostasis. The port was then freed with blunt dissection and subsequently removed. There are no signs of infection. After hemostasis was achieved, the incision was closed with interrupted deep 2-0 Vicryl sutures and subcuticular Monocryl sutures. The site was cleansed and covered with a sterile dressing. A follow-up radiograph demonstrates complete removal of the port. EBL: < 5 ml. Complications: None. IR Ultrasound and fluoroscopy-guided port placement. IR Ultrasound of the neck. IR Moderate sedation. Clinical information: Nonfunctioning right chest wall port. Multiple sclerosis. Cardiac disease. Needs long-term IV access. Physician: Dr. Evans. Procedure: The patient was advised of the benefits, risks, and alternatives of the procedure and informed consent was obtained. A time-out was performed with verification of the patient's name, MRN, site of procedure and type of procedure to be performed. The patient was positioned in the supine position on the angiographic table. The site was prepped and draped in the usual sterile fashion. Ultrasound of the neck reveals a patent and compressible left internal jugular vein. A director medical safety radiograph reveals median sternotomy wires. The neck and anterior chest wall were anesthetized with lidocaine. The left internal jugular vein was accessed using a microintroducer needle by a lateral approach. An 018 wire was advanced into the superior vena cava, the needle was removed and a microsheath was placed. An Amplatz wire was then passed into the inferior vena cava. An incision at the internal jugular vein access site and anterior chest wall were made using a scalpel. An incision was made at the anterior chest wall. A small pocket was created using a combination of blunt and sharp dissection. A tunneling device was then used to pass the catheter from the pocket to the neck puncture site. An 8-[employer] smart power port was then positioned in the pocket. The catheter was then measured and cut. The introducer sheath was exchanged for a peel-away sheath. The catheter was passed through the peel-away sheath into the internal jugular vein and the peel-away sheath was removed. The port tip was positioned at the cavo atrial junction. The port was then accessed with a Abdi needle. The port flushes and aspirates well. The puncture site in the neck was closed. The chest wall incision was then closed with 2-0 Vicryl and 4-0 Monocryl. Glue and Steri-Strips were applied. A sterile dressing was then applied. The patient tolerated the procedure well and was returned to the PRU in stable condition. Estimated blood loss: <5 ml. Complications: None. Conclusion: 1. Successful placement of an 8-[employer] smart power port via the left internal jugular vein. The port is ready for immediate use. 2. Patient to follow up in IR clinic in 2 weeks. Thank you for this referral. Electronically Signed by Suzanne Evans MD 11/28/2018 06:45 P
[2018-11-28] MEDS: HEPARIN SOD (PORCINE) 5000 UNITS/ML VIAL IV PRN (18:55)
[2018-11-28] MEDS: HEPARIN DRIP 25,000 UNITS in IV 1 EA IV SCH (20:30)
[2018-11-28] MEDS: **NOTE PATIENT COMMENT** MISC XX SCH ×2 (20:35→20:37)
[2018-11-28] MEDS: rOPINIRole 0.25 MG TAB(REQUIP) PO SCH (20:36)
[2018-11-28 22:00] VITALS: BP 128/61
[2018-11-29 02:00] VITALS: BP 82/58
[2018-11-29] MEDS ORDERED: GLUCAGON FOR INJ 1 MG VIAL (J1610) SC PRN (02:00)
[2018-11-29] MEDS ORDERED: GLUCOSE 4 GM CHEW TABLET PO PRN (02:00)
[2018-11-29] MEDS ORDERED: DEXTROSE 50% 50 ML SYRINGE IV PRN (02:00)
[2018-11-29 02:48] VITALS: BP 103/66
[2018-11-29] MEDS: PERCOCET 5MG/325MG TAB PO PRN (05:59)
[2018-11-29 06:00] VITALS: BP 106/48
[2018-11-29 06:39] LABS: BASO % 0.4 % (0.0-1.0); EOS # 0.1 10^3/uL (0.0-0.5); EOS % 1.1 % (0.0-3.0); HEMOGLOBIN 13.8 g/dl (12.0-15.5); LYMPH # 3.1 10^3/uL (1.5-5.0); LYMPH % 29.5 % (24.0-44.0); MEAN CORPUSCULAR HEMOGLOBIN 32.5 pg (27.0-33.0); MEAN CORPUSCULAR HGB CONC 32.9 g/dl (32.0-36.5); MEAN CORPUSCULAR VOLUME 98.8 fl (80.0-96.0); MONO # 0.9 10^3/uL (0.0-0.8); MONO % 8.4 % (0.0-5.0); NEUTROPHILS # 6.4 10^3/uL (1.5-8.5); NEUTROPHILS % 59.9 % (36.0-66.0); PLATELET COUNT, AUTOMATED 344 10^3/uL (150-450); RED BLOOD COUNT 4.25 10^6/uL (4.00-5.40); WHITE BLOOD COUNT 10.7 10^3/uL (4.0-10.0)
[2018-11-29 07:08] LABS: BLOOD UREA NITROGEN 16 MG/DL (7-18); CALCIUM LEVEL 9.8 MG/DL (8.5-10.1); CARBON DIOXIDE LEVEL 30 MEQ/L (21-32); CHLORIDE LEVEL 100 MEQ/L (98-107); GLOMERULAR FILTRATION RATE > 60.0 (>51); GLUCOSE, FASTING 105 MG/DL (70-100); SODIUM LEVEL 137 MEQ/L (136-145)
[2018-11-29] MEDS ORDERED: HumaLOG INSULIN (NovoLOG) PER UNIT SC SCH ×2 (07:30→21:00)
[2018-11-29 07:31] LABS: INR 1.21
[2018-11-29] MEDS: ALPRAZolam 0.5 MG TAB PO SCH (08:43)
[2018-11-29] MEDS: FUROSEMIDE 40 MG TAB PO SCH (09:00)
[2018-11-29] MEDS: POTASSIUM CHLORIDE 10% LIQ 20 MEQ/15 ML UDC PO SCH (09:00)
[2018-11-29] MEDS: CYANOCOBALAMIN 500 MCG TAB PO SCH (09:01)
[2018-11-29] MEDS: diphenhydrAMINE 50 MG CAP PO SCH (09:01)
[2018-11-29] MEDS: NITROGLYCERIN 0.4 MG/HR PATCH TD SCH (09:01)
[2018-11-29 09:02] VITALS: BP 131/71
[2018-11-29] MEDS: FENOFIBRATE 145 MG TAB (TRICOR) PO SCH (09:02)
[2018-11-29] MEDS: ATORVASTATIN 20 MG TAB PO SCH (09:02)
[2018-11-29] MEDS: BISOPROLOL FUMARATE 5 MG TAB PO SCH (09:02)
[2018-11-29] MEDS: CLOPIDOGREL 75 MG TAB PO SCH (09:02)
[2018-11-29 09:08] LABS: HEMOGLOBIN A1c 6.1 %
--- NOTE | 2018-11-29 10:39 | DS.PDOC ---
Discharge Summary General Date of Admission Nov 26, 2018 at 14:28 Date of Discharge 11/29/2018 Discharge Summary PROCEDURES PERFORMED DURING STAY: 11/28/2018 patient has had a replacement of her Port-A-Cath with interventional radiology, Dr. Evans ADMITTING DIAGNOSES / DISCHARGE DIAGNOSES: Port-A-Cath malfunction A. fib / AV replacement (possibly bioprosthetic) CAD s/p CABG CHF DLP DM2 COPD Hx of CVA - possibly 2/2 Atrial fibrillation (as per patient) Crohn's disease Multiple sclerosis / Optic nerve atrophy Lumbar herniated disc disease / Complex regional pain syndrome / Rheumatoid arthritis Migraine headaches RLS Anxiety / Panic attacks / PTSD DVT prophylaxis COMPLICATIONS/CHIEF COMPLAINT: Was advised to come to the hospital for bridge therapy prior to her procedure with interventional radiology HISTORY OF PRESENT ILLNESS: Patient is a 48 year old female with PMHx of A. fib (on Warfarin), AV replacement (possible bioprosthetic), CAD s/p CABG (Hx of [place]), CHF, COPD, Hx of CVA, Crohn's disease, Multiple sclerosis, Lumbar herniated disc disease, Complex regional pain syndrome, Rheumatoid arthritis, Optic nerve atrophy, Migraine headaches, RLS, Panic attacks, PTSD , who presented to [facility] for replacement of her nonfunctioning Port-A-Cath. Patient was admitted to hospitalist service for bridging therapy with heparin drip in anticipation of her surgery on 11/28/2018. HOSPITAL COURSE: Patient has left against medical twice on 11/29/2018 because she has advised us that her mother has been hospitalized a [facility] and is being transferred to [place] for higher level of care. Advisor that her INR is not yet therapeutic and that she will still require heparin drip. She has been advised that it is unsafe to leave at this point. Risks of leaving AGAINST MEDICAL ADVICE have been advised to her as worsening of her medical condition, possible stroke, disability, and/or . Patient has verbalized understanding. The benefits are remaining inpatient were reported to her as monitoring her INR and anticoagulation status until it is within therapeutic range. Patient has refused to sign AMA paperwork. Port-A-Cath malfunction - Patient denies any pain around the Port-A-Cath site - Coumadin was held from admission; was placed on a Heparin drip - Currently INR is subtherapeutic - Dr. Hopkins has replaced the Port-A-Cath on 11/28/2018 - Plan was to continue with heparin drip until INR is within therapeutic range - Patient will be leaving against medical advise; advised to continue with Coumadin. She will get an INR check on Saturday A. fib / AV replacement (possibly bioprosthetic) - c/w rate control with Bisoprolol - Patient will be taken off Heparin drip - as she is leaving AMA, Advised to continue with Coumadin tonight CAD s/p CABG - Hx of [place] - c/w Plavix, - c/w Nitroglycerin as ordered CHF - Does not appear to show any signs of fluid overload - c/w furosemide DLP - c/w Fenofibrate and Atorvastatin DM2 - A1c of 6.1 - c/w ISS COPD - No evidence of exacerbation - Continue with inhaled therapy as ordered Hx of CVA - possibly 2/2 Atrial fibrillation (as per patient) - c/w Plavix and anticoagulation Crohn's disease - Patient has reported that she experiences chronic diarrhea Multiple sclerosis / Optic nerve atrophy Lumbar herniated disc disease / Complex regional pain syndrome / Rheumatoid arthritis - c/w pain medication as ordered Migraine headaches - c/w Tylenol and pain regimen as ordered RLS - c/w Ropinirole Anxiety / Panic attacks / PTSD - c/w Alprazolam DVT prophylaxis - c/w full anticoagulation DISCHARGE MEDICATIONS: Please see below. ALLERGIES: Please see below. PHYSICAL EXAMINATION ON DISCHARGE: Vitals (See below) General: Lying in bed, no acute distress, comfortable, AAOx3 HEENT: NC, AT CVS: +S1S2 Lungs: Fair bilateral evidence of rhonchi, rales or wheezing Abdomen: Remains soft, without any distention at this Extremities: Lower extremities are free of any edema, - Calf tenderness LABORATORY DATA: Please see below. ACTIVITY: [As tolerated]. DISCHARGE PLAN: Follow-up with Dr. Rodolfo Esteves immediately Have INR checked on Saturday / Continue with Coumadin Remain compliant with treatment plan and medications Return to the ER if you experience any problems DISPOSITION: Against Medical Advice. DISCHARGE CONDITION: [Stable]. TIME SPENT ON DISCHARGE: 35 minutes Vital Signs/I&Os Vital Signs Date Time Temp Pulse Resp B/P (MAP) Pulse Ox O2 Delivery O2 Flow Rate FiO2 11/29/18 09:02 79 131/71 11/29/18 06:29 18 2.0 11/29/18 06:00 98.3 97 11/28/18 10:30 93 I&O- Last 24 Hours up to 6 AM 11/29/18 06:00 Intake Total 1651 ml Balance 1651 ml Laboratory Data Labs 24H Laboratory Tests 2 11/28/18 10:48: Activated Partial Thromboplast Time 25.9 11/28/18 18:24: Activated Partial Thromboplast Time 42.2H 11/29/18 00:46: Activated Partial Thromboplast Time 125.5*H 11/29/18 05:52: Immature Granulocyte % (Auto) 0.7, White Blood Count 10.7H, Red Blood Count 4.25, Hemoglobin 13.8, Hematocrit 42.0, Mean Corpuscular Volume 98.8H, Mean Corpuscular Hemoglobin 32.5, Mean Corpuscular Hemoglobin Concent 32.9, Red Cell Distribution Width 13.0, Platelet Count 344, Neutrophils (%) (Auto) 59.9, Lymphocytes (%) (Auto) 29.5, Monocytes (%) (Auto) 8.4H, Eosinophils (%) (Auto) 1.1, Basophils (%) (Auto) 0.4, Neutrophils # (Auto) 6.4, Lymphocytes # (Auto) 3.1, Monocytes # (Auto) 0.9H, Eosinophils # (Auto) 0.1, Basophils # (Auto) 0.0, Nucleated Red Blood Cells % (auto) 0.0, Prothrombin Time 15.0H, Prothromb Time International Ratio 1.21, Anion Gap 7L, Glomerular Filtration Rate > 60.0, Estimated Mean Plasma Glucose 128H, Hemoglobin A1c 6.1, Blood Urea Nitrogen 16, Creatinine 0.70, Sodium Level 137, Potassium Level 4.0, Chloride Level 100, Carbon Dioxide Level 30, Calcium Level 9.8 11/29/18 09:27: Activated Partial Thromboplast Time 77.4H CBC/BMP Laboratory Tests 11/29/18 05:52 Red Blood Count 4.25, Mean Corpuscular Volume 98.8 H, Mean Corpuscular Hemoglobin 32.5, Mean Corpuscular Hemoglobin Concent 32.9, Red Cell Distribution Width 13.0, Neutrophils (%) (Auto) 59.9, Lymphocytes (%) (Auto) 29.5, Monocytes (%) (Auto) 8.4 H, Eosinophils (%) (Auto) 1.1, Basophils (%) (Auto) 0.4, Neutrophils # (Auto) 6.4, Lymphocytes # (Auto) 3.1, Monocytes # (Auto) 0.9 H, Eosinophils # (Auto) 0.1, Basophils # (Auto) 0.0, Calcium Level 9.8 Discharge Medications Scheduled Alprazolam (Xanax Xr) 0.5 Mg Tab, 0.5 MG PO TID, (Reported) 599/1199/1800 Atorvastatin Calcium (Lipitor) 20 Mg Tab, 20 MG PO DAILY, (Reported) Bisoprolol Fumarate (Bisoprolol Fumarate) 5 Mg Tab, 2.5 MG PO BID, (Reported) 599/1799 Clopidogrel Bisulfate (Plavix) 75 Mg Tab, 75 MG PO DAILY, (Reported) Cyanocobalamin (Vitamin B-12) (Vitamin B-12) 100 Mcg Tab, 100 MCG PO DAILY, (Reported) Diphenhydramine HCl (Diphenhydramine HCl) 50 Mg Capsule, 50 MG PO TID, (Reported) 599/1199/1800 Ergocalciferol (Vitamin D2) (Drisdol) 50,000 Unit Capsule, 50,000 UNIT PO QWEEK, (Reported) SUNDAYS Fenofibrate (Fenofibrate) 150 Mg Cap, 150 MG PO DAILY, (Reported) Furosemide (Lasix) 40 Mg Tablet, 80 MG PO BID, (Reported) Nitroglycerin (Nitroglycerin Patch) 0.4 Mg/Hr Patch.td24, 0.8 MG TD DAILY, (Repo rted) APPLIED TO LEFT BREAST AND RIGHT SHOULDER Oxycodone HCl/Acetaminophen (Oxycodone-Acetaminophen 5-325) 1 Tab Tab, 1 TAB PO QID, (Reported) 599/1199/1800/0000 Potassium Chloride (Potassium Chloride) 20 Meq/15 Ml Liquid, 30 ML PO BID, (Reported) Ropinirole HCl (Ropinirole HCl) 0.5 Mg Tablet, 1 MG PO QHS, (Reported) Warfarin Sodium (Coumadin) 5 Mg Tab, 5 MG PO 4XWK, (Reported) MON/WED/FRI/SAT AT 0600 Warfarin Sodium (Coumadin) 2.5 Mg Tab, 2.5 MG PO 3XW, (Reported) SUN/TUES/THURS AT 0600 Scheduled PRN Acetaminophen (Acetaminophen) 500 Mg Tablet, 500 MG PO Q6H PRN for PAIN, (Reported) Albuterol Sulfate (Ventolin Hfa) 18 Gm Hfa.aer.ad, 2 PUFF INH Q4H PRN for SHORTNESS OF BREATH, (Reported) Epinephrine (Epipen 2-Venancio) 0.3 Mg/0.3 Ml Inj, 0.3 MG IM for ALLERGIC REACTION, (Reported) Loperamide HCl (Imodium A-D) 2 Mg Tablet, 2 MG PO Q4H PRN for DIARRHEA, (Reported) Nitroglycerin (Nitrostat) 0.4 Mg Subl, 0.4 MG SL Q5MP PRN for ANGINA, (Reported) Ondansetron HCl (Zofran) 8 Mg Tab, 8 MG PO Q6H PRN for NAUSEA, (Reported) Miscellaneous Medications Insulin Human Lispro (Humalog) 1 Units/0.01 Ml Inj, 1 DOSE SC for HYPERGLYCEMIA, (Reported) TAKES ONLY WHEN ON STEROIDS Allergies Coded Allergies: Sulfa (Sulfonamide Antibiotics) (Verified Allergy, Severe, RASH, SOB, 11/26/18) ciprofloxacin (Verified Allergy, Severe, RASH AND DIFFICULTY BREATHING, 11/26/18) latex (Verified Allergy, Severe, RASH, DIFFICULITY BREATHING, 11/26/18) metronidazole (Verified Allergy, Severe, ANAPHYLAXIS, 11/26/18) butorphanol (Verified Allergy, Intermediate, SEVERE RASH, 11/26/18) morphine (Verified Allergy, Intermediate, SEVERE RASH, 11/26/18) Contrast Media (Verified Allergy, Mild, RASH, 11/26/18) Quinolones (Verified Allergy, Mild, RASH, 11/26/18) TAPE (Verified Allergy, Mild, RASH,BLISTERS, 11/26/18) aspirin (Verified Allergy, Mild, RASH, 11/26/18) grass pollen (Verified Allergy, Mild, GRASSES/HAY, 11/26/18) metoclopramide (Verified Allergy, Mild, RASH, 11/26/18) nalbuphine (Verified Allergy, Mild, RASH, 11/26/18) ranitidine (Verified Allergy, Mild, RASH, 11/26/18) sumatriptan (Verified Allergy, Mild, RASH AND HYPERTENSION, 11/26/18) terbutaline (Verified Allergy, Mild, RASH, 11/26/18) Anesthetics - Amide Type (Verified Allergy, Unknown, SPINAL ANESTHESIA, 06/19/18) Blackberry (Verified Allergy, Unknown, 07/24/16) shellfish derived (Verified Allergy, Unknown, 06/19/18) strawberry (Verified Allergy, Unknown, 06/19/18) Serotonin 5HT-3 Antagonists (Verified Adverse Reaction, Intermediate, SUICIDAL, 11/26/18) hydromorphone (Verified Adverse Reaction, Intermediate, SEVERE VOMITING, 11/26/18) tramadol (Verified Adverse Reaction, Intermediate, VOMITING, HEADACHE, CAN'T MOVE, 11/26/18) codeine (Verified Adverse Reaction, Mild, VOMITING, 11/26/18) EDUAR BRENNAN MD Nov 29, 2018 10:39
== END 2018-11-29 10:12 | disposition left against medical advice (07) | DRG 951 ==
LOC: M MSPAV 14:28
PROVIDERS: ADMIT Internal Medicine; ATTEND Internal Medicine
PROC: 02HV33Z Insertion of Infusion Device into Superior Vena Cava, Percutaneous Approach (ICD-10-PCS; 2018-11-28)
PROC: 0JH60XZ Insertion of Tunneled Vascular Access Device into Chest Subcutaneous Tissue and Fascia, Open Approach (ICD-10-PCS; 2018-11-28)
PROC: 05PY03Z Removal of Infusion Device from Upper Vein, Open Approach (ICD-10-PCS; principal; 2018-11-28 09:00)
DX: T85.618A Breakdown (mechanical) of other specified internal prosthetic devices, implants and grafts, initial encounter (principal); I11.0 Hypertensive heart disease with heart failure; I48.91 Unspecified atrial fibrillation; G35 Multiple sclerosis; K50.90 Crohn's disease, unspecified, without complications; I50.32 Chronic diastolic (congestive) heart failure; J44.9 Chronic obstructive pulmonary disease, unspecified; E78.5 Hyperlipidemia, unspecified; I25.2 Old myocardial infarction; M51.26 Other intervertebral disc displacement, lumbar region; G43.909 Migraine, unspecified, not intractable, without status migrainosus; F41.0 Panic disorder [episodic paroxysmal anxiety]; E11.9 Type 2 diabetes mellitus without complications; F43.10 Post-traumatic stress disorder, unspecified; M06.9 Rheumatoid arthritis, unspecified; G25.81 Restless legs syndrome; Z86.73 Personal history of transient ischemic attack (TIA), and cerebral infarction without residual deficits; Z95.3 Presence of xenogenic heart valve; Z79.01 Long term (current) use of anticoagulants; Z95.5 Presence of coronary angioplasty implant and graft; Z90.49 Acquired absence of other specified parts of digestive tract; Y83.1 Surgical operation with implant of artificial internal device as the cause of abnormal reaction of the patient, or of later complication, without mention of misadventure at the time of the procedure

== ENCOUNTER → 2018-12-16 | Outpatient (POV) | payer OTHER ==
[~2018-12-16] VITALS: Ht 160 cm; Wt 118.6 kg
[~2018-12-16] MED LIST changes: +ACET500T15 PO; +DIPH50CA PO; +DRIS50003 PO; +LOPE2TAB12 PO; +NITR0.4D6 TD; +POTA20EL PO; +ROPI0.5T PO; +VENTAER INH
--- NOTE | 2018-12-16 09:05 | IRPN ---
[facility] IR Progress Note IR Progress Note DATE: Dec 16, 2018 FOLLOW-UP: 2 weeks status post right chest port removal and left sided port placement. Patient states new port insertion site became increasingly itchy, with clear discharge and a red rash appeared. After which the Steri-Strips fell off and the seams of the incision came apart. No fevers or chills. No pain. Taking Benadryl. Reports prior reaction to Steri-Strips. Unsure if she has p reviously reacted to absorbable sutures. Denies bleeding at the site. ON EXAMINATION: Left chest wall port insertion site is open. Maculopapular rash surrounding the port site. Clear discharge. Afebrile. IMPRESSION: Reaction to left port insertion, unclear if she reacted to Steri- Strips or skin glue. Regardless, this site now appears like is not going to heal. I will schedule the patient for left port removal and Tirado placement. I think this is the best option for her and patient may continue blood thinners for this. Thank you for this referral. Allergies Coded Allergies: Sulfa (Sulfonamide Antibiotics) (Verified Allergy, Severe, RASH, SOB, 11/26/18) ciprofloxacin (Verified Allergy, Severe, RASH AND DIFFICULTY BREATHING, 11/26/18) latex (Verified Allergy, Severe, RASH, DIFFICULITY BREATHING, 11/26/18) metronidazole (Verified Allergy, Severe, ANAPHYLAXIS, 11/26/18) butorphanol (Verified Allergy, Intermediate, SEVERE RASH, 11/26/18) morphine (Verified Allergy, Intermediate, SEVERE RASH, 11/26/18) Contrast Media (Verified Allergy, Mild, RASH, 11/26/18) Quinolones (Verified Allergy, Mild, RASH, 11/26/18) TAPE (Verified Allergy, Mild, RASH,BLISTERS, 11/26/18) aspirin (Verified Allergy, Mild, RASH, 11/26/18) grass pollen (Verified Allergy, Mild, GRASSES/HAY, 11/26/18) metoclopramide (Verified Allergy, Mild, RASH, 11/26/18) nalbuphine (Verified Allergy, Mild, RASH, 11/26/18) ranitidine (Verified Allergy, Mild, RASH, 11/26/18) sumatriptan (Verified Allergy, Mild, RASH AND HYPERTENSION, 11/26/18) terbutaline (Verified Allergy, Mild, RASH, 11/26/18) Anesthetics - Amide Type (Verified Allergy, Unknown, SPINAL ANESTHESIA, 06/19/18) Blackberry (Verified Allergy, Unknown, 07/24/16) shellfish derived (Verified Allergy, Unknown, 06/19/18) strawberry (Verified Allergy, Unknown, 06/19/18) Serotonin 5HT-3 Antagonists (Verified Adverse Reaction, Intermediate, SUICIDAL, 11/26/18) hydromorphone (Verified Adverse Reaction, Intermediate, SEVERE VOMITING, 11/26/18) tramadol (Verified Adverse Reaction, Intermediate, VOMITING, HEADACHE, CAN'T MOVE, 11/26/18) codeine (Verified Adverse Reaction, Mild, VOMITING, 11/26/18) VS,Fishbone, I+O VS, Fishbone, I+O Vital Signs Date Time Temp Pulse Resp B/P (MAP) Pulse Ox O2 Delivery O2 Flow Rate FiO2 12/16/18 08:30 98.1 81 20 93 2.0 ANYI DIAZ MD Dec 16, 2018 09:05
== END ==
LOC: M IRPOV 08:20
PROVIDERS: ATTEND Radiology Diagnostic Radiology
DX: T81.31XA Disruption of external operation (surgical) wound, not elsewhere classified, initial encounter (principal); R21 Rash and other nonspecific skin eruption; X58.XXXA Exposure to other specified factors, initial encounter; Y93.9 Activity, unspecified; Y92.9 Unspecified place or not applicable; Y99.9 Unspecified external cause status; Z88.1 Allergy status to other antibiotic agents; Z88.2 Allergy status to sulfonamides; Z88.5 Allergy status to narcotic agent; Z88.6 Allergy status to analgesic agent; Z88.8 Allergy status to other drugs, medicaments and biological substances; Z91.013 Allergy to seafood; Z91.018 Allergy to other foods; Z91.040 Latex allergy status; Z91.048 Other nonmedicinal substance allergy status

== ENCOUNTER → 2018-12-19 | Outpatient (CLI) | payer OTHER ==
[~2018-12-19] MED LIST changes: +LIDOCAINE 1% MDV 20ML VIAL As Ordered ONE; +MEPERIDINE INJ 25 MG/ML VIAL (J2175) As Ordered ONE; +PERCOCET 5MG/325MG TAB As Ordered ONE; +ceFAZolin 1GM INJ (J0690 PER 500MG) As Ordered ONE; +diphenhydrAMINE INJ 50MG/ML VIAL (J1200) As Ordered ONE
--- NOTE | 2018-12-19 10:47 | IRHP ---
[facility] IR Pre-Procedure H & P General Date of Service: Dec 19, 2018 Procedure: Same Day Surgery Interval History and Physical I have seen the patient and reviewed last H & P performed within 30 days. There is no significant interval change. History of Present Illness Chief Complaint The patient is a 48-year-old female admitted with a reason for visit of Reaction To Port. PRE-PROCEDURE DIAGNOSIS: MS HEART: normal rate. LUNGS: normal breathing at rest. ASA Classification ASA Classification: III-Severe systemic dis. Mallampati Score: II NPO: Yes Problems with prior sedation: No Obstructive Sleep Apnea: No Plan moderate sedation Allergies Coded Allergies: Sulfa (Sulfonamide Antibiotics) (Verified Allergy, Severe, RASH, SOB, 11/26/18) ciprofloxacin (Verified Allergy, Severe, RASH AND DIFFICULTY BREATHING, 11/26/18) latex (Verified Allergy, Severe, RASH, DIFFICULITY BREATHING, 11/26/18) metronidazole (Verified Allergy, Severe, ANAPHYLAXIS, 11/26/18) butorphanol (Verified Allergy, Intermediate, SEVERE RASH, 11/26/18) morphine (Verified Allergy, Intermediate, SEVERE RASH, 11/26/18) Contrast Media (Verified Allergy, Mild, RASH, 11/26/18) Quinolones (Verified Allergy, Mild, RASH, 11/26/18) TAPE (Verified Allergy, Mild, RASH,BLISTERS, 11/26/18) aspirin (Verified Allergy, Mild, RASH, 11/26/18) grass pollen (Verified Allergy, Mild, GRASSES/HAY, 11/26/18) metoclopramide (Verified Allergy, Mild, RASH, 11/26/18) nalbuphine (Verified Allergy, Mild, RASH, 11/26/18) ranitidine (Verified Allergy, Mild, RASH, 11/26/18) sumatriptan (Verified Allergy, Mild, RASH AND HYPERTENSION, 11/26/18) terbutaline (Verified Allergy, Mild, RASH, 11/26/18) Anesthetics - Amide Type (Verified Allergy, Unknown, SPINAL ANESTHESIA, 06/19/18) Blackberry (Verified Allergy, Unknown, 07/24/16) shellfish derived (Verified Allergy, Unknown, 06/19/18) strawberry (Verified Allergy, Unknown, 06/19/18) Serotonin 5HT-3 Antagonists (Verified Adverse Reaction, Intermediate, SUICIDAL, 11/26/18) hydromorphone (Verified Adverse Reaction, Intermediate, SEVERE VOMITING, 11/26/18) tramadol (Verified Adverse Reaction, Intermediate, VOMITING, HEADACHE, CAN'T MOVE, 11/26/18) codeine (Verified Adverse Reaction, Mild, VOMITING, 11/26/18) Home Medications Scheduled Alprazolam (Xanax Xr), 0.5 MG PO TID, (Reported) Atorvastatin Calcium (Lipitor), 20 MG PO DAILY, (Reported) Bisoprolol Fumarate (Bisoprolol Fumarate), 2.5 MG PO BID, (Reported) Clopidogrel Bisulfate (Plavix), 75 MG PO DAILY, (Reported) Cyanocobalamin (Vitamin B-12) (Vitamin B-12), 100 MCG PO DAILY, (Reported) Diphenhydramine HCl (Diphenhydramine HCl), 50 MG PO TID, (Reported) Ergocalciferol (Vitamin D2) (Drisdol), 50,000 UNIT PO QWEEK, (Reported) Fenofibrate (Fenofibrate), 150 MG PO DAILY, (Reported) Furosemide (Lasix), 80 MG PO BID, (Reported) Nitroglycerin (Nitroglycerin Patch), 0.8 MG TD DAILY, (Reported) Oxycodone HCl/Acetaminophen (Oxycodone-Acetaminophen 5-325), 1 TAB PO QID, (Reported) Potassium Chloride (Potassium Chloride), 30 ML PO BID, (Reported) Ropinirole HCl (Ropinirole HCl), 1 MG PO QHS, (Reported) Warfarin Sodium (Coumadin), 5 MG PO 4XWK, (Reported) Warfarin Sodium (Coumadin), 2.5 MG PO 3XW, (Reported) Scheduled PRN Acetaminophen (Acetaminophen), 500 MG PO Q6H PRN for PAIN, (Reported) Albuterol Sulfate (Ventolin Hfa), 2 PUFF INH Q4H PRN for SHORTNESS OF BREATH, (Reported) Epinephrine (Epipen 2-Venancio), 0.3 MG IM for ALLERGIC REACTION, (Reported) Loperamide HCl (Imodium A-D), 2 MG PO Q4H PRN for DIARRHEA, (Reported) Nitroglycerin (Nitrostat), 0.4 MG SL Q5MP PRN for ANGINA, (Reported) Ondansetron HCl (Zofran), 8 MG PO Q6H PRN for NAUSEA, (Reported) Miscellaneous Medications Insulin Human Lispro (Humalog), 1 DOSE SC, (Reported) VS, I&O, 24H, Fishbone Vital Signs/I&O Vital Signs Date Time Temp Pulse Resp B/P (MAP) Pulse Ox O2 Delivery O2 Flow Rate FiO2 12/19/18 10:42 70 18 98 Nasal Cannula 2 12/19/18 08:23 97.2 ANYI DIAZ MD Dec 19, 2018 10:47
--- NOTE | 2018-12-19 12:10 | POST-OPPD ---
Postoperative Procedure Note Date Of Procedure: Dec 19, 2018 Time Of Procedure: 12:08 PREOPERATIVE DIAGNOSIS: MS POSTOPERATIVE DIAGNOSIS: MS FINDINGS: left port partially healed PROCEDURE: right holloway placement. ready to use. left port removed. steri strips only. heal by secondary intentions. SURGEON: estrada ANESTHESIA: mod sed ESTIMATED BLOOD LOSS: < 5 ml COMPLICATIONS: none POSTOPERATIVE CONDITION: stable ANYI DIAZ MD Dec 19, 2018 12:10
[2018-12-19 13:55] VITALS: BP 132/68
--- NOTE | 2018-12-22 07:12 | REP ---
IR Triado catheter insertion under fluoroscopy and ultrasound guidance. Ultrasound of the right neck. Left-sided chest wall port removal. Clinical information: MS. Heart failure. Needs constant IV access. Reaction to left chest wall port. Physician: Dr. Evans. Procedure: The patient was advised of the benefits, risks and alternatives of the procedure and informed consent was obtained. The time-out was performed with verification of the patient's name, MRN, site of procedure and type of procedure to be performed. The patient was positioned in the supine position on the angiographic table. The site was prepped and draped in the usual sterile fashion. Moderate sedation was not possible due to the patient's list of allergies. The physician spent 60 minutes of continuous face to face time with the patient. Ultrasound of the neck reveals a patent and compressible right internal jugular vein. A tong setter radiograph reveals a left chest wall port in appropriate location. The neck and anterior chest wall were anesthetized with lidocaine. The right internal jugular vein was accessed using a micro introducer needle under ultrasound guidance, via a lateral approach. The 018 cope wire was advanced into the superior vena cava. The needle was removed and a micro introducer sheath was placed. An Amplatz wire was then passed into the inferior vena cava. Incision at the internal jugular access site and anterior chest wall were made using a scalpel. A dual-lumen Tirado catheter was inserted through the subcutaneous tissues of the chest wall with a tunneling device. The micro introducer sheath was removed and internal jugular puncture site was upsized with dilator. A peel-away sheath was placed over the wire and into the superior vena cava. The wire and stiffener were removed. The catheter was passed through the internal jugular vein via the sheath. The peel-away sheath was then removed. The catheter tip was positioned in the cavo atrial junction. The puncture site was closed. The catheter was secured in place using 2-0 Prolene. Both sites were cleansed and sterile dressing was applied. At the conclusion of the procedure, the ports of the catheter aspirate and flush freely. Port removal. IR port removal. Clinical information: Multiple sclerosis. Hypersensitive. Reaction to left chest wall port. Site not healing. Physician: Dr. Evans. Procedure: The patient was advised of the benefits, risks and alternatives of the procedure and informed consent was obtained. The time-out was performed with verification of the patient's name, MRN, site of procedure and type of procedure to be performed. The patient was positioned in the supine position on the angiographic table. The site was prepped and draped in the usual sterile fashion. A tong setter radiograph reveals right-sided Tirado catheter in appropriate location. The soft tissues overlying the port pocket were anesthetized with lidocaine. An incision was made over the port using an 15 blade scalpel in the location of the prior incision. The catheter was then freed with blunt dissection and extracted. Pressure was applied to obtain hemostasis. The port was then freed with blunt dissection and subsequently removed. There are no signs of infection. After hemostasis was achieved, the incision margins were brought together with Steri-Strips to heal by secondary intension. A sterile dressing was applied to the site. A follow-up radiograph demonstrates complete removal of the port. The patient tolerated the procedure well and was returned to PRU in stable condition. EBL: < 5 ml. Complications: None. Conclusion: 1. Successful ultrasound and fluoroscopy-guided placement of right internal jugular vein Tirado catheter. 2. Successful left chest wall port removal. 3. Patient to follow up in IR clinic in 1 month. Thank you this referral. Electronically Signed by Suzanne Evans MD 12/22/2018 07:11 A
== END ==
LOC: M IRPRO 07:52
PROVIDERS: ATTEND Radiology Diagnostic Radiology
DX: G35 Multiple sclerosis (principal); I50.9 Heart failure, unspecified; T82.898A Other specified complication of vascular prosthetic devices, implants and grafts, initial encounter; Z88.1 Allergy status to other antibiotic agents; Z88.2 Allergy status to sulfonamides; Z88.4 Allergy status to anesthetic agent; Z88.5 Allergy status to narcotic agent; Z88.6 Allergy status to analgesic agent; Z88.8 Allergy status to other drugs, medicaments and biological substances; Z91.013 Allergy to seafood; Z91.018 Allergy to other foods; Z91.040 Latex allergy status; Z91.048 Other nonmedicinal substance allergy status; Z91.09 Other allergy status, other than to drugs and biological substances; Z79.899 Other long term (current) drug therapy; Z79.4 Long term (current) use of insulin; X58.XXXA Exposure to other specified factors, initial encounter; Y93.9 Activity, unspecified; Y92.9 Unspecified place or not applicable; Y99.9 Unspecified external cause status
CPT/HCPCS: 36565; 36590; 76937; C1750; C1769; C1894; J0690; J1200; J2175

== ENCOUNTER → 2019-02-16 | Outpatient (REF) | payer OTHER ==
[~2019-02-16] MED LIST changes: -LIDOCAINE 1% MDV 20ML VIAL As Ordered ONE; -MEPERIDINE INJ 25 MG/ML VIAL (J2175) As Ordered ONE; -PERCOCET 5MG/325MG TAB As Ordered ONE; -ceFAZolin 1GM INJ (J0690 PER 500MG) As Ordered ONE; -diphenhydrAMINE INJ 50MG/ML VIAL (J1200) As Ordered ONE
[2019-02-16 20:28] LABS: BASO # 0.1 10^3/uL (0.0-0.2); BASO % 0.4 % (0.0-1.0); EOS # 0.1 10^3/uL (0.0-0.5); EOS % 1.1 % (0.0-3.0); HEMATOCRIT 48.8 % (36.0-47.0); HEMOGLOBIN 15.5 g/dl (12.0-15.5); LYMPH # 3.4 10^3/uL (1.5-5.0); LYMPH % 29.6 % (24.0-44.0); MEAN CORPUSCULAR HEMOGLOBIN 32.5 pg (27.0-33.0); MEAN CORPUSCULAR HGB CONC 31.8 g/dl (32.0-36.5); MEAN CORPUSCULAR VOLUME 102.3 fl (80.0-96.0); MONO # 0.9 10^3/uL (0.0-0.8); NEUTROPHILS % 60.6 % (36.0-66.0); PLATELET COUNT, AUTOMATED 401 10^3/uL (150-450); RED BLOOD COUNT 4.77 10^6/uL (4.00-5.40); WHITE BLOOD COUNT 11.6 10^3/uL (4.0-10.0)
[2019-02-16 20:46] LABS: BLOOD UREA NITROGEN 11 MG/DL (7-18); CALCIUM LEVEL 9.5 MG/DL (8.5-10.1); CARBON DIOXIDE LEVEL 28 MEQ/L (21-32); CHLORIDE LEVEL 106 MEQ/L (98-107); CREATININE FOR GFR 0.68 MG/DL (0.55-1.30); FREE T4 0.89 NG/DL (0.76-1.46); GLOMERULAR FILTRATION RATE > 60.0 (>51); GLUCOSE, FASTING 85 MG/DL (70-100); POTASSIUM SERUM 4.6 MEQ/L (3.5-5.1); SODIUM LEVEL 141 MEQ/L (136-145)
== END ==
LOC: M SFHCLERA 16:54
PROVIDERS: ATTEND Family Medicine
DX: I50.9 Heart failure, unspecified (principal); R73.02 Impaired glucose tolerance (oral)

== ENCOUNTER → 2019-05-08 | Outpatient (CLI) | payer OTHER ==
[~2019-05-08] MED LIST changes: +BISO5TAB14 PO; -BISO5TAB9 PO; -ROPI0.5T PO; +ROPI0.5T3 PO
--- NOTE | 2019-05-14 04:59 | ECWPNPC ---
PATIENT NAME: MARA OLEARY : 1970 GENDER: FEMALE VISIT DATE: 05/08/2019 DISCHARGE DATE: 05/08/19 1448 VISIT LOCKED DATE TIME: PHYSICIAN: VALENTINA ERAZO MD RESOURCE: VALENTINA ERAZO MD REASON FOR APPOINTMENT 1. DR Zuniga ADVICE-HOW TO RX HISTORY OF PRESENT ILLNESS NEW PATIENT CONSULT: WHEN DID YOUR PAIN FIRST START? . BRIEFLY DESCRIBE HOW YOUR PAIN STARTED? . HOW DOES YOUR PAIN CHANGE WITH TIME? . DOES YOUR PAIN AWAKEN YOU FROM SLEEP? . HOW MANY HOURS OF SLEEP DO YOU NORMALLY GET? . ANY DIAGNOSTIC TESTING? . FACILITY WHERE TESTS WERE DONE? ____. PAIN TREATMENT TREATMENT YES CANCER HAVE YOU EVER HAD ANY TYPE OF CANCER?NO NO. 48 YEAR OLD FEMALE PATIENT WITH A HISTORY OF CHRONIC CHEST WALL AND LOW BACK PAIN. THE PATIENT DESCRIBES THE PAIN ACHING, BURNING, TENDER, SHARP, STABBING, SHOOTING, AND CONTINUOUS WITH A PAIN SCORE OF 7-10/10 DEPENDING ON PHYSICAL ACTIVITY. THE PATIENT STATES SHE HAD CHEST SURGERY YEARS AGO AND HER PAIN STARTED AFTER HAVING A STERNOTOMY. THE PATIENT SAYS SHE ALSO HAS PAIN IN HER LOWER BACK THAT RADIATES DOWN BOTH LEGS. THE PATIENT SAYS SHE IS CONTROLLING HER PAIN WITH THE USE OF OXYCODONE-ACETAMINOPHEN 5-325 MG UP TO 4 TABLETS NEEDED DAILY AND SHE IS ALSO USING ALPRAZOLAM 0.5 MG NEEDED DAILY TO HELP WITH PTSD. THE PATIENT DENIES ANY SIDE EFFECTS, RESPIRATORY DEPRESSION, DIZZINESS, SLOW REACTION, OR RESPIRATORY COMPROMISE WITH THE USE OF BOTH MEDICATIONS. PATIENT DENIES UNEXPLAINABLE WEIGHT LOSS, FEVER, CHILLS, NEW CHANGES ON HER URINARY OR BOWEL CONTROL. PAIN SCREENING: PATIENT HAS A COMPLAINT OF ACUTE OR CHRONIC PAIN :YES FALL RISK SCREENING: SCREENING : NO FALLS IN THE PAST YEAR. EVANS INVENTORY: QUESTIONNAIRE ASSESSEDTBD SCORE VALUE CALCULATED TBD CURRENT MEDICATIONS TAKING INSULIN LISPRO (HUMAN) , NOTES: 1 UNIT TID PRN ONLY WHEN ON PREDNISONE TAKING DRISDOL 31820 UNIT CAPSULE 1 CAPSULE ORALLY WEEKLY TAKING POTASSIUM CHLORIDE 20 MEQ PACKET 1 PACKET WITH FOOD ORALLY BID, NOTES: 40 MEQ BID TAKING VITAMIN B12 100 MCG TABLET 1 TABLET ORALLY ONCE A DAY TAKING ALPRAZOLAM 0.5 MG TABLET 1 TABLET ORALLY THREE TIMES A DAY TAKING FUROSEMIDE 80 MG TABLET 2 TABLETS IN AM, 8 HOURS LATER 2 TABS ORALLY- TAKES AN EXTRA DOSE 1-2 TIMES A WEEK QD, NOTES: 180MG BID TAKING IMMODIUM 1 DOSE EVERY 2 HOURS NEEDED TAKING EPIPEN TAKING ONDANSETRON 8 MG TABLET DISPERSIBLE ORALLY NEEDED TAKING COUMADIN 5 MG 5 MG TABLET 1 TABLET ORALLY-CARDIO ONCE A DAY, NOTES: Sat, SAT, SAT 5MG, REST OF WEEK 2.5MG TAKING WHEELCHAIR 1 MISCELLANEOUS DIRECTED WHEEL CHAIR TAKING PLAVIX 75 MG TABLET 1 TABLET ORALLY ONCE A DAY TAKING NITRO-DUR 0.4 MG/HR PATCH 24 HOUR 2 PATCHES TRANSDERMAL ONCE A DAY TAKING E-Z SPACER - DEVICE DIRECTED WITH INHALER ANY TIME INHALER IS USED TAKING [employer] ULTRA II TEST STRIPS - STRIP DIRECTED CHECK FINGERSTICK ONCE DAILY, NOTES: R73.09 TAKING LIPITOR 20 MG TABLET 1 TABLET ORALLY ONCE A DAY TAKING DIPHENHYDRAMINE HCL 25 MG CAPSULE 2 CAPSULE NEEDED ORALLY THREE TIMES A DAY TAKING OXYGEN Z99.81 , J44.0 , I50.9 DISPENSE PORTABLE OXYGEN CONCENTRATOR FOR LONG CAR RIDES , NOTES: 2L TAKING REQUIP 0.5 MG TABLET 2 TAB(S) ORALLY QHS TAKING FENOFIBRATE 160 MG TABLET 1 TABLET WITH FOOD ORALLY ONCE A DAY TAKING VENTOLIN HFA 108 (90 BASE) MCG/ACT AEROSOL SOLUTION 2 PUFFS NEEDED INHALATION EVERY 4 HOURS NEEDED TAKING CLINDAMYCIN PHOSPHATE 1 % SOLUTION APPLY A THIN FILM OF SOLUTION TO THE AFFECTED AREA OF ARMPITS AND UNDER BREASTS AND BELLY FOLD EXTERNALLY TWICE A DAY TAKING OXYCODONE-ACETAMINOPHEN 5-325 MG TABLET 1-2 TABLET NEEDED ORALLY EVERY 6 HRS PRN MDD 8, NOTES: DO NOT DISPENSE UNTIL 04/27/2019 TAKING ONETOUCH ULTRA TEST - STRIP USE DIRECTED TO CHECK FINGERSTICK TWO TIMES A DAY TAKING COREG 12.5 MG TABLET ORALLY BID NOT-TAKING METOPROLOL TARTRATE 25 MG TABLET 1 TABLET WITH FOOD ORALLY TWICE A DAY, NOTES: UNSURE OF DOSE/FREQUENCY - HAS NOT PICKED UP MEDICATION YET NOT-TAKING BISOPROLOL FUMARATE 5 MG TABLET 2 TABLETS ORALLY BID NOT-TAKING FLUTICASONE PROPIONATE 50 MCG/ACT SUSPENSION 1 SPRAY IN EACH NOSTRIL NASALLY ONCE A DAY NOT-TAKING PERCOCET 5-325 MG TABLET 1 TABLET NEEDED ORALLY EVERY 8 HRS MEDICATION LIST REVIEWED AND RECONCILED WITH THE PATIENT PAST MEDICAL HISTORY MULTIPLE SCLEROSIS CROHNS DISEASE IRRITABLE BOWEL HERNIATED INTERVERTEBRAL DISC OF LUMBAR SPINE COMPLEX REGIONAL PAIN SYNDROME OPTIC NERVE ATROPHY MIGRAINES PANIC ATTACK PTSD (POST-TRAUMATIC STRESS DISORDER) RHEUMATOID ARTHRITIS RESTLESS LEG TIA (TRANSIENT ISCHEMIC ATTACK) MYOCARDIAL INFARCT AORTIC VALVE REPLACED H/O HEART ARTERY STENT PORTACATH IN PLACE CHF, CAD AFIB, [place] X3 COPD HYDRADENITIS SUPPARATIVA WHEELCHAIR BOUND MULTIPLE SCLEROSIS ON RIGHT SIDE STROKE WITH LEFT SIDE RESIDUAL ALLERGIES ACETAMINOPHEN-CODEINE: RASH - ALLERGY ASPIRIN: RASH - ALLERGY MORPHINE SULFATE: RASH - ALLERGY CIPRO: DIFFICULTY BREATHING - ALLERGY BRETHINE: RASH - ALLERGY FLAGYL: RASH, DIFFICULTY BREATHING - ALLERGY IMITREX: RASH - ALLERGY REGLAN: RASH - ALLERGY NUBAIN: RASH - ALLERGY STADOL: RASH, DIFFICULTY BREATHING - ALLERGY LATEX (FOR ALLERGY USE ONLY): RASH, DIFFICULTY BREATHING - ALLERGY ZANTAC: RASH - ALLERGY ULTRAM: VOMITING/BARRIENTOS - SIDE EFFECTS BLACKBERRIES: HIVES - ALLERGY STRAWBERRIES: HIVES - ALLERGY MOWED GRASS: RESPIRATORY - ALLERGY CONTRAST DYE: RASH - ALLERGY PAPER TAPE: RASH - ALLERGY DILAUDID: NAUSEA/VOMITING - SIDE EFFECTS SERATONIN REPLACERS: SUICIDAL - ALLERGY SPINAL INJECTION-NOT SURE WHICH ONE: RASH - ALLERGY PAPER TAPE: RASH, SHORTNESS OF BREATH - ALLERGY ALL SULFA DRUGS : ANAPHYLAXIS - ALLERGY SHELLFISH: ANAPHYLAXIS - ALLERGY SURGICAL HISTORY UMBILICAL HERNIA REPAIR 1969 RIGHT ANKLE REPAIR 01/1983 D&C WITH LAPAROSCOPY 08/1987 APPENDECTOMY 10/1990 TUBAL CYST REMOVAL 11/1990 D&C LAPAROSCOPY TUBAL LIGATION 05/1992 5 D&C LAPAROSCOPY HYSTERECTOMY 12/1994 RIGHT KNEE REPAIR 01/2007 AORTIC VALVE REPLACEMENT AND CARDIAC BYPASS 11/2012 CARDIAC STENT 08/2013 LOOP RECORDER PLACED THEN REMOVED 06/2014 CARDIAC STENT 11/2014 CHOLECYSTECTOMY 1989 HEART CATH 07/25/17 [facility]OP RECORDER REMOVED 12/2017 PORT REMOVED 12/2018 FAMILY HISTORY FATHER: , DIAGNOSED WITH UNSPECIFIED HEART DISEASE MOTHER: ALIVE, DIABETES, HYPERTENSION, OTHER MALIGNANT NEOPLASM OF UNSPECIFIED SITE 4 BROTHER(S) , 4 SISTER(S) . 2DAUGHTER(S) - HEALTHY. MOTHER: BREAST CA AGE 38\NUNSURE OF FAMILY HISTORY\NDAUGTHERS: EPILEPSY, RHEUMATEUD ARTHRITIS, BIPOLAR, AGOROPHOBIA, ASTHMA. SOCIAL HISTORY GENERAL: TOBACCO USE ARE YOU A:FORMER SMOKER HOW LONG HAS IT BEEN SINCE YOU LAST SMOKED?1-5 YEARS VAPORNO E-CIGARETTENO HIV / HEP-C SCREENING HIV TEST OFFERED TO PATIENT:YES DATE OFFERED:03/21/2018 TEST ACCEPTED:NO HEP-C TEST OFFERED TO PATIENT:YES DATE OFFERED:03/21/2018 REASON:PATIENT DECLINED TEST ACCEPTED:NO REASON:PATIENT DECLINED BROCHURE PROVIDED TO PATIENTNO OTHERS AT HOME: SPOUSE, CHILD. HOUSING: RENTS APARTMENT. EDUCATION BACHELORS. DIET: LOW FAT, LOW CHOLESTEROL, LOW SALT. LANGUAGE LANGUAGES SPOKEN:WOLOF DOMESTIC VIOLENCE DO YOU FEEL SAFE IN YOUR ENVIRONMENT?YES BMI CARE GOAL FOLLOW-UP ABOVE NORMAL BMI FOLLOW-UPDIETARY MANAGEMENT EDUCATION, GUIDANCE, AND COUNSELING RECREATIONAL DRUG USE DRUG USE?NO EXERCISE: NO REGULAR EXERCISE. LEARNING BARRIERS / SPECIAL NEEDS BARRIERS TO LEARNING?NO HEARING IMPAIRED?NO VISION IMPAIRED?YES LEGALLY BLIND COGNITIVELY IMPAIRED?NO READINESS TO LEARN?YES LEARNING PREFERENCES?NO LEARNING CAPABILITIES PRESENT?YES EMOTIONAL BARRIERS?NO SPECIAL DEVICES?YES :WHEELCHAIR HEEL SEAT LASTER NEEDED?NO PAIN CLINIC PFS, CLERGY, PUBLIC HEALTH REFERRALS HAS THE PATIENT BEEN EDUCATED REGARDING HIS/HER PLAN OF CARE?YES HAS THE PATIENT BEEN EDUCATED REGARDING PAIN, THE RISK FOR PAIN, THE IMPORTANCE OF EFFECTIVE PAIN MANAGEMENT, AND THE PAIN ASSESSMENT PROCESS?YES CLERGY REFERRAL NEEDED?NO WAS THE PROVIDER NOTIFIED OF ANY PERTINENT INFO?NO PFS REFERRAL NEEDED?NO PUBLIC HEALTH REFERRAL NEEDED?NO LATEX QUESTIONNAIRE LATEX ALLERGY : HAVE YOU EVER DEVELOPED ANY TYPE OF REACTION AFTER HANDLING LATEX PRODUCTS SUCH RUBBER GLOVES, CONDOMS, DIAPHRAGMS, BALLOONS, SOCKS, OR UNDERWEAR?YES LATEX ALLERGY : HAVE YOU EVER DEVELOPED ANY TYPE OF REACTION DURING OR AFTER DENTAL APPOINTMENT, VAGINAL/RECTAL EXAMINATION, SURGICAL PROCEDURE, OR ANY OTHER EXPOSURE?NO - PLEASE INDICATE :RUBBER GLOVES, CONDOMS, BALLOONS, DIAPHRAGMS, SOCKS, UNDERWEAR RASH, TIGHTNESS IN CHEST DATE ASKED : 05/14/2018 LATEX RISK : HAVE YOU EVER HAD ANY DIFFICULTY BREATHING OR HIVES AFTER EATING OR HANDLING ANY FRUITS, OR VEGETABLES; SUCH KIWI, BANANAS, STONE FRUITS, OR CHESTNUTSNO LATEX RISK : DO YOU HAVE A PREVIOUS PERSONAL HISTORY OF MORE THAN NINE SURGERIES, SPINA BIFIDA, OR REPEATED CATHERIZATIONS? NO LATEX RISK : ARE YOU FREQUENTLY EXPOSED TO LATEX PRODUCTS IN YOUR OCCUPATION?NO CAFFEINE CAFFEINE USE?YES 2-3 CUPS PER DAY ADVANCE DIRECTIVE ADVANCE DIRECTIVE DISCUSSED WITH PATIENT:YES 04/02/2019 PATIENT HAS NO ADVANCED DIRECTIVES, STATES SHE HAS HCP INFORMATION AT HOME, DECLINED ASSISTANCE WITH FORM AT THIS TIME. JS ORTHODOX [id number] NONE MARITAL STATUS: . ALCOHOL SCREENING DID YOU HAVE A DRINK CONTAINING ALCOHOL IN THE PAST YEAR?NO POINTS0 INTERPRETATIONNEGATIVE OCCUPATION: DISABLED. 02/27/19 PRE CONSULT DONE EMPRE-SCREENING COMPLETED 04/02/2019 1643 JS. HOSPITALIZATION/MAJOR DIAGNOSTIC PROCEDURE SEE ABOVE REVIEW OF SYSTEMS REVIEWED BY: PROVIDER: VALENTINA ERAZO MD . CONSTITUTIONAL: ANY CHANGE IN YOUR MEDICAL CONDITION? NO . CHILLS NO . FEVER NO . INFECTION: DO YOU HAVE NEW INFECTIONS? NO . DO YOU HAVE HISTORY OF MRSA? NO . MUSCULOSKELETAL: ANY NEW PATTERNS OF PAIN OR NUMBNESS? NOT NEW JUST UNCONROLLED . SYTEMIC LUPUS NO . GASTROENTEROLOGY: ANY NEW CHANGE IN BOWEL CONTROL? NO . BARRETTS ESOPHAGUS NO . CIRRHOSIS NO . HEPATITIS NO . LIVER FAILURE NO . ACID REFLUX NO . UNEXPLAINED WEIGHT LOSS NO . GENITOURINARY: ANY NEW CHANGE IN BLADDER CONTROL? NO . IS THERE A CHANCE YOU COULD BE ? NO . HEMATOLOGY/LYMPH: DO YOU TAKE ANY BLOOD THINNERS? (FOR EXAMPLE- COUMADIN, PLAVIX, AGGRENOX, PLATEL, PRADAXA, OR XARELTO) YES COUMADIN . WHEN WAS YOUR LAST DOSE? DATE: TIME: . LOW PLATELET COUNT NO . SICKLE CELL DISEASE NO . VON WILLIEBRANDS NO . FACTOR V LEIDEN NO . THALLASEMIA NO . ANEMIA NO . EASY BRUISING NO . NEUROLOGY: HAVE YOU FALLEN IN THE PAST 12 MONTHS? NO . ANY NEW EXTREMITY NUMBNESS OR WEAKNESS? NO . HEAD INJURY NO . DEMENTIA NO . CEREBRAL PALSY NO . MULTIPLE SCLEROSIS YES . DIZZINESS NO . HEADACHE NO . STROKES NO . VERTIGO NO . CARDIOLOGY: DO YOU HAVE A PACEMAKER OR DEFIBRILLATOR? NO . ANGINA NO . HEART ATTACK NO . HEART SURGERY NO . CONGESTIVE HEART FAILURE/FLUID OVERLOAD NO . CHEST PAIN YES STERNUM PAIN ALWAYS . HIGH BLOOD PRESSURE NO . IRREGULAR HEART BEAT NO . RESPIRATORY: HAVE YOU BEEN SICK IN THE PAST WEEK? NO . FEVER NO . FLU LIKE SYMPTOMS? NO . CPAP NO . BYPAP NO . ASTHMA NO . EMPHYSEMA NO . CHRONIC LUNG DISEASES NO . SHORTNESS OF BREATH ON EXERTION NO . DO YOU USE ANY TYPE OF TOBACCO (SMOKE, SMOKELESS, CHEW)? NO . COUGH NO . SNORING NO . INTEGUMENTARY: DO YOU HAVE ANY RASHES OR OPEN SORES? NO . ALLERGIC/IMMUNO: ARE YOU ALLERGIC TO IV DYE? NO . ANY NEW ALLERGIES? NO . PSYCHIATRIC: DO YOU HAVE THOUGHTS OF HURTING YOURSELF OR SOMEONE ELSE? NO . ARE YOU ABUSED, NEGLECTED, OR IN AN UNSAFE ENVIRONMENT? NO . ENDOCRINOLOGY: ARE YOU DIABETIC? NO . THYROID DISORDER NO . OTHER: DO YOU NEED ANY PRESCRIPTIONS? NO . IF YES, PLEASE LIST: ____ . ANY NEW PROBLEMS WITH YOUR MEDICATIONS? NO . WHEN DID YOU LAST EAT? ____ . WHEN DID YOU LAST DRINK? ____ . WHAT DID YOU LAST DRINK? ____ . NAME OF PERSON DRIVING YOU HOME? ____ . DO YOU HAVE ANY OTHER QUESTIONS OR CONCERNS NO . VITAL SIGNS WT 256.4 LBS, HT 62 IN, BMI 46.89 INDEX, BP 166/79 MM HG, HR 89 /MIN, RR 19 /MIN, TEMP 97.5 F, OXYGEN SAT % 94% 2.0 L, NA INITIALS MS 1312PT STATED THAT SHE WEIGHED HERSELF THIS MORNING. EXAMINATION GENERAL EXAMINATION: PATIENT IS ALERT O X 3 AND COOPERATIVE. LUNGS CLEAR, TO AUSCULTATION. HEART: 2/4 MURMURS, NO GALLOPS; FACIAL CRANIAL NERVES ARE GROSSLY NORMAL. GOOD SYMMETRY OF FACIAL MUSCLE MOVEMENT. NORMAL VISUAL [place]. HYPERPATHIA OVER ANTERIOR CHEST WALL NEAR STERNOTOMY SCAR. TENDERNESS OVER THE PARASPINAL MUSCLE GROUP OF THE LOW BACK. X-RAY OF THE THORACIC SPINE DONE ON 10/17/2018 SHOWS DEGENERATIVE CHANGES. X-RAY OF THE LUMBAR SPINE DONE ON 10/17/2018 SHOWS DEGENERATIVE CHANGES. X-RAY OF THE CHEST SHOWS PRIOR MEDIAN STERNOTOMY. 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 OLEARY' PAIN MANAGEMENT CASE. I DISCUSSED WITH THE PATIENT THAT ALTERNATIVE USE OF OPIOIDS INCLUDE GABAPENTIN, CYMBALTA, AND LYRICA, WHICH THE PATIENT HAS PREVIOUSLY TRIED WITHOUT RECEIVING ANY PAIN RELIEF. THE PATIENT HAS TRIED MULTIPLE PRESCRIPTIONS IN THE PAST, AND HAS FOUND A REGIMEN THAT IS PRESENTLY WORKING AND PROVIDING HER WITH GOOD PAIN RELIEF. THE PATIENT DENIES SIDE EFFECTS AND ILLEGAL USE WITH THE MEDICATIONS. FOR INTERVENTIONAL THERAPY, I DISCUSSED THE OPTION OF A STERNUM BLOCK, HOWEVER THERE IS POTENTIAL COMPLICATIONS INCLUDING INFECTIONS AND ALSO NEED TO CONSIDER PATIENT'S RESPIRATORY CONDITION WELL. I ADVISED THE PATIENT TO CONTINUE PRESENT MEDICATION REGIMEN THAT IS HELPING AID IN PAIN RELIEF. IF PATIENT REQUIRES MORE NARCOTICS, I SUGGEST THE OPTION TO CONSIDER IS AN OPIOID ROTATION. I DISCUSSED THE OPTION OF REFERRING THE PATIENT TO [facility] TO CONSIDER MEDICATION MANAGEMENT THERE, AND THE OPTION OF MEDICAL MARIJUANA WHICH THE PATIENT IS OPEN TO CONSIDER AND WOULD LIKE TO BE REFERRED THERE. THEREFORE, I WILL REFER THE PATIENT TO [facility] TO PURSUE MEDICATION MANAGEMENT AT THEIR CLINIC. THE PATIENT WAS ADVISED TO CALL NEEDED IF SHE WOULD LIKE TO BE SEEN AGAIN. INSTRUCTIONS WERE GIVEN, QUESTIONS WERE ANSWERED, PATIENT REPORTS UNDERSTANDING AND AGREES WITH THE PLAN. I, VERNON VALDIVIA, DOCUMENTED THE ABOVE INFORMATION ACTING A SCRIBE FOR DR. ERAZO. I HAVE REVIEWED THE ABOVE DOCUMENT, WRITTEN BY VERNON TONG AND I VERIFY THAT IT IS ACCURATE. DEAR DR. MICHAEL MARLEY MD: THANK YOU FOR YOUR KIND REFERRAL OF MARA OLEARY. IF YOU WANT TO DISCUSS HER CASE WITH ME PLEASE CALL ME AT THE PAIN CENTER AT [phone]. SINCERELY, VALENTINA ERAZO MD PAIN MEDICINE . PROCEDURE CODES FA211 ESTABILISHED PATIENT [facility] FACILITY CHARGE [id number] CURRENT MEDS W/DOSAGES DOCUMENTED G8730 PAIN ASSESS POS TOOL F/U PLAN DOC DISPOSITION & COMMUNICATION FOLLOW UP REASON: CALL NEEDED ELECTRONICALLY SIGNED BY VALENTINA ERAZO MD, MD ON 05/13/2019 AT 12:34 PM EDT DISCLAIMER : THIS IS A VISIT SUMMARY EXTRACTED FROM THE [facility] CHART. IT IS NOT A COPY OF THE [facility] PROGRESS NOTE. MAURICIO
== END ==
LOC: M PAIN 13:00
PROVIDERS: ATTEND Anesthesiology
DX: R07.89 Other chest pain (principal); Z98.890 Other specified postprocedural states; M54.5 Low back pain; G89.29 Other chronic pain; M79.2 Neuralgia and neuritis, unspecified

== ENCOUNTER → 2019-05-13 | Outpatient (REF) | payer OTHER ==
[2019-05-13 12:10] LABS: BLOOD UREA NITROGEN 12 MG/DL (7-18); CALCIUM LEVEL 9.7 MG/DL (8.5-10.1); CARBON DIOXIDE LEVEL 26 MEQ/L (21-32); CHLORIDE LEVEL 106 MEQ/L (98-107); GLOMERULAR FILTRATION RATE > 60.0 (>51); GLUCOSE, FASTING 107 MG/DL (70-100); POTASSIUM SERUM 4.9 MEQ/L (3.5-5.1); SODIUM LEVEL 138 MEQ/L (136-145)
== END ==
LOC: M SFHCLERA 08:27
PROVIDERS: ATTEND Family Medicine
DX: G89.29 Other chronic pain (principal); I50.9 Heart failure, unspecified

== ENCOUNTER → 2019-07-30 | Outpatient (REF) | payer OTHER ==
[2019-07-30 11:38] LABS: BASO # 0.1 10^3/uL (0.0-0.2); BASO % 0.5 % (0.0-1.0); EOS # 0.2 10^3/uL (0.0-0.5); EOS % 1.6 % (0.0-3.0); HEMATOCRIT 46.1 % (36.0-47.0); LYMPH # 2.5 10^3/uL (1.5-5.0); LYMPH % 23.1 % (24.0-44.0); MEAN CORPUSCULAR HGB CONC 32.5 g/dl (32.0-36.5); MEAN CORPUSCULAR VOLUME 101.3 fl (80.0-96.0); MONO # 0.7 10^3/uL (0.0-0.8); MONO % 6.5 % (0.0-5.0); NEUTROPHILS # 7.4 10^3/uL (1.5-8.5); NEUTROPHILS % 67.8 % (36.0-66.0); PLATELET COUNT, AUTOMATED 408 10^3/uL (150-450); RED BLOOD COUNT 4.55 10^6/uL (4.00-5.40); WHITE BLOOD COUNT 10.9 10^3/uL (4.0-10.0)
[2019-07-30 12:23] LABS: ALT/SGPT 33 U/L (12-78); BILIRUBIN,TOTAL 0.1 MG/DL (0.2-1.0); BLOOD UREA NITROGEN 11 MG/DL (7-18); CALCIUM LEVEL 9.3 MG/DL (8.5-10.1); CARBON DIOXIDE LEVEL 26 MEQ/L (21-32); CHLORIDE LEVEL 106 MEQ/L (98-107); CREATININE FOR GFR 0.65 MG/DL (0.55-1.30); GLOMERULAR FILTRATION RATE > 60.0 (>51); GLUCOSE, FASTING 98 MG/DL (70-100); MAGNESIUM LEVEL 2.1 MG/DL (1.8-2.4); SODIUM LEVEL 142 MEQ/L (136-145); TOTAL PROTEIN 7.2 GM/DL (6.4-8.2)
== END ==
LOC: M LAB REF 10:34
PROVIDERS: ATTEND Internal Medicine Cardiovascular Disease
DX: I25.10 Atherosclerotic heart disease of native coronary artery without angina pectoris (principal); I50.9 Heart failure, unspecified

== ENCOUNTER → 2019-08-13 | Outpatient (REF) | payer OTHER ==
[2019-08-13 14:17] LABS: FOLATE 21.5 NG/ML
[2019-08-19 12:08] LABS: Methylmalonic Acid 350 nmol/L (0-378)
== END ==
LOC: M SFHCLERA 11:00
PROVIDERS: ATTEND Family Medicine
DX: E53.8 Deficiency of other specified B group vitamins (principal); D75.89 Other specified diseases of blood and blood-forming organs

== ENCOUNTER → 2019-09-23 | Outpatient (CLI) | payer OTHER ==
--- NOTE | 2019-09-23 10:04 | REP ---
Clinical: Left-sided abdominal pain. Technique: Two frontal radiographs of the abdomen and pelvis. Findings: Bowel gas pattern is nonspecific. Evidence of prior cholecystectomy. Hepatomegaly cannot be excluded. Skeletal structures demonstrate age-related changes. Impression: Nonspecific bowel gas pattern. Hepatomegaly suggested. Electronically Signed by Khari Grace MD 09/23/2019 09:56 A
[2019-09-23 10:10] LABS: BASO % 0.3 % (0.0-1.0); EOS # 0.2 10^3/uL (0.0-0.5); EOS % 1.3 % (0.0-3.0); HEMATOCRIT 48.2 % (36.0-47.0); HEMOGLOBIN 15.6 g/dl (12.0-15.5); LYMPH # 2.4 10^3/uL (1.5-5.0); MEAN CORPUSCULAR HGB CONC 32.4 g/dl (32.0-36.5); MEAN CORPUSCULAR VOLUME 101.9 fl (80.0-96.0); MONO # 0.7 10^3/uL (0.0-0.8); MONO % 6.1 % (0.0-5.0); NEUTROPHILS # 8.1 10^3/uL (1.5-8.5); NEUTROPHILS % 70.6 % (36.0-66.0); PLATELET COUNT, AUTOMATED 434 10^3/uL (150-450); RED BLOOD COUNT 4.73 10^6/uL (4.00-5.40); WHITE BLOOD COUNT 11.5 10^3/uL (4.0-10.0)
[2019-09-23 10:43] LABS: FERRITIN 116 NG/ML (8-252); IRON (FE) 77 UG/DL (50-170); LDH LACTATE DEHYDROGENASE 230 U/L (84-246); PERCENT SATURATION 17.8 % (13.2-45.0); TOTAL IRON BINDING CAPACITY 432 UG/DL (250-450); TOTAL PROTEIN 7.5 GM/DL (6.4-8.2)
[2019-10-19 08:06] LABS: COPPER PLASMA 89 ug/dL (72-166); HAPTOGLOBIN 50 mg/dL (33-346); VITAMIN B1 LEVEL WHOLE BLOOD 169.7 nmol/L (66.5-200.0)
[2019-12-01 14:37] LABS: ALPHA-1-GLOBULIN % 3.7 % (2.9-4.9)
[2019-12-01 14:38] LABS: ALPHA-1-GLOBULINS 0.28 GM/DL (0.17-0.41); ALPHA-2-GLOBULINS 0.66 GM/DL (0.42-0.99); ALPHA-2-GLOBULINS % 8.8 % (7.1-11.8); BETA-1-GLOBULINS 0.53 GM/DL (0.28-0.60); BETA-1-GLOBULINS % 7.1 % (4.7-7.2); BETA-2-GLOBULINS 0.41 GM/DL (0.19-0.55); BETA-2-GLOBULINS % 5.5 % (3.2-6.5); GAMMA GLOBULIN % 10.9 % (11.1-18.8); GAMMA GLOBULINS 0.82 GM/DL (0.65-1.58)
[2019-12-04 14:17] LABS: JAK2 MUTATIONS FOR PATH SENDOU See Pathology Report
== END ==
LOC: M LAB 08:26
PROVIDERS: ATTEND Internal Medicine Hematology & Oncology
DX: D75.89 Other specified diseases of blood and blood-forming organs (principal)

== ENCOUNTER → 2019-11-12 | Outpatient (CLI) | payer OTHER | LOC: M LABSMTC 11:26 | PROVIDERS: ATTEND Internal Medicine Cardiovascular Disease | DX: Z01.812 Encounter for preprocedural laboratory examination (principal); Z20.828 Contact with and (suspected) exposure to other viral communicable diseases | CPT/HCPCS: C9803; U0003 ==

== ENCOUNTER 2019-12-18 10:03 | Emergency (ER) | payer OTHER ==
[~2019-12-18] VITALS: Ht 162.6 cm; Wt 120.3 kg
[2019-12-18] MEDS: NITROGLYCERIN 0.4 MG SUBL TABLET SL PRN ×3 (10:31→13:23)
[2019-12-18 10:32] LABS: BASO % 0.4 % (0.0-1.0); EOS # 0.2 10^3/uL (0.0-0.5); EOS % 1.4 % (0.0-3.0); HEMATOCRIT 47.3 % (36.0-47.0); LYMPH # 2.7 10^3/uL (1.5-5.0); LYMPH % 25.9 % (24.0-44.0); MEAN CORPUSCULAR HEMOGLOBIN 32.3 pg (27.0-33.0); MEAN CORPUSCULAR HGB CONC 31.7 g/dl (32.0-36.5); MEAN CORPUSCULAR VOLUME 101.9 fl (80.0-96.0); MONO # 0.7 10^3/uL (0.0-0.8); MONO % 6.3 % (0.0-5.0); NEUTROPHILS # 6.8 10^3/uL (1.5-8.5); NEUTROPHILS % 65.4 % (36.0-66.0); PLATELET COUNT, AUTOMATED 373 10^3/uL (150-450); RED BLOOD COUNT 4.64 10^6/uL (4.00-5.40); WHITE BLOOD COUNT 10.4 10^3/uL (4.0-10.0)
[2019-12-18 10:37] VITALS: BP 124/55
--- NOTE | 2019-12-18 10:44 | REPVR ---
PROCEDURE INFORMATION: Exam: XR Chest, 1 View Exam date and time: 12/18/2019 10:23 AM Age: 49 years old Clinical indication: Chest pain; Type not specified TECHNIQUE: Imaging protocol: XR of the chest Views: 1 view. COMPARISON: IN PORTABLE CHEST X-RAY 06/19/2018 6:12 AM FINDINGS: Lungs: Lungs are well aerated. No consolidation. Pleural space: No significant pleural effusions. No pneumothorax. Heart/Mediastinum: Stable mild enlargement of the cardiomediastinal silhouette. Postoperative change from sternotomy and cardiac surgery. Mild thoracic atherosclerosis. Pulmonary vasculature is unremarkable. No edema. Bones/joints: Bones are stable. IMPRESSION: Stable appearance of the chest. No acute abnormalities are identified. Electronically signed by: Khari Marquez On 12/18/2019 10:44:14 AM
[2019-12-18 10:53] LABS: ALBUMIN 4.1 GM/DL (3.2-5.2); ALT/SGPT 27 U/L (12-78); BILIRUBIN,DIRECT < 0.1 MG/DL (0.0-0.2); BILIRUBIN,TOTAL 0.2 MG/DL (0.2-1.0); LIPASE 98 U/L (73-393)
[2019-12-18 10:56] LABS: INR 2.49; PROTHROMBIN TIME 27.5 SECONDS (12.5-14.3)
[2019-12-18 10:57] LABS: PARTIAL THROMBOPLASTIN TIME 41.6 SECONDS (24.2-38.5)
[2019-12-18] MEDS ORDERED: fentaNYL 100 MCG/2 ML INJECTION (J3010) IV ONE (11:30)
[2019-12-18] MEDS ORDERED: ONDANSETRON 4MG/2ML VIAL IV ONE (13:15)
[2019-12-18 14:47] VITALS: BP 139/81
--- NOTE | 2019-12-19 07:42 | ECGEPIP ---
[facility] - ED Test Date: 2019-12-18 Pat Name: MARA OLEARY Department: Room: - Gender: Female Straight Edger: [place] : 1970 Requested By: Laxmi Dumont Order Number: [id number] Reading MD: Keaton Melton Measurements Intervals Notus Rate: 72 P: 23 [place]: 153 QRS: 31 QRSD: 85 T: 162 QT: 387 QTc: 424 Interpretive Statements SINUS RHYTHM ST DEVIATION AND MODERATE T-WAVE ABNORMALITY, CONSIDER ANTEROLATERAL ISCHEMIA Similar to tracing done 06-19-18 Electronically Signed on 12-19-2019 7:41:59 EDT by Keaton Melton
== END 2019-12-18 15:20 | disposition left against medical advice (07) ==
LOC: EDBD 10:03 → M ED 10:03
DX: R07.9 Chest pain, unspecified (principal); R11.0 Nausea; I48.91 Unspecified atrial fibrillation; I50.9 Heart failure, unspecified; D15.1 Benign neoplasm of heart; G35 Multiple sclerosis; K50.90 Crohn's disease, unspecified, without complications; Z95.2 Presence of prosthetic heart valve; Z95.1 Presence of aortocoronary bypass graft; Z95.5 Presence of coronary angioplasty implant and graft; Z87.891 Personal history of nicotine dependence; Z86.73 Personal history of transient ischemic attack (TIA), and cerebral infarction without residual deficits; Z82.49 Family history of ischemic heart disease and other diseases of the circulatory system; Z88.4 Allergy status to anesthetic agent; Z91.018 Allergy to other foods; Z91.041 Radiographic dye allergy status; Z88.8 Allergy status to other drugs, medicaments and biological substances; Z88.2 Allergy status to sulfonamides; Z88.6 Allergy status to analgesic agent; Z91.048 Other nonmedicinal substance allergy status; Z88.1 Allergy status to other antibiotic agents; Z88.5 Allergy status to narcotic agent; J30.1 Allergic rhinitis due to pollen; Z79.899 Other long term (current) drug therapy; Z79.891 Long term (current) use of opiate analgesic; Z79.01 Long term (current) use of anticoagulants; Z79.02 Long term (current) use of antithrombotics/antiplatelets
CPT/HCPCS: 71045; 80047; 80076; 83690; 85025; 85610; 85730; 93005; 93041; 94760; 96374; 96375; 99285; J2405; J3010

== ENCOUNTER → 2020-01-22 | Outpatient (REF) | payer OTHER ==
[2020-01-22 11:25] LABS: INR 1.91; PROTHROMBIN TIME 22.3 SECONDS (12.5-14.3)
[2020-01-22 11:33] LABS: BLOOD UREA NITROGEN 13 MG/DL (7-18); CARBON DIOXIDE LEVEL 24 MEQ/L (21-32); CHLORIDE LEVEL 109 MEQ/L (98-107); CREATININE FOR GFR 0.71 MG/DL (0.55-1.30); GLOMERULAR FILTRATION RATE > 60.0 (>51); GLUCOSE, FASTING 107 MG/DL (70-100); MAGNESIUM LEVEL 2.2 MG/DL (1.8-2.4); POTASSIUM SERUM 4.8 MEQ/L (3.5-5.1); SODIUM LEVEL 139 MEQ/L (136-145)
== END ==
LOC: M LAB REF 10:09
PROVIDERS: ATTEND Internal Medicine Cardiovascular Disease
DX: I10 Essential (primary) hypertension (principal); Z86.73 Personal history of transient ischemic attack (TIA), and cerebral infarction without residual deficits

== ENCOUNTER → 2020-04-12 | Outpatient (REF) | payer OTHER ==
[2020-04-12 13:41] LABS: INR 1.54; PROTHROMBIN TIME 18.8 SECONDS (12.5-14.3)
== END ==
LOC: M SHH 11:21
PROVIDERS: ATTEND Internal Medicine Cardiovascular Disease
DX: Z95.2 Presence of prosthetic heart valve (principal)

== ENCOUNTER → 2020-04-22 | Outpatient (REF) | payer OTHER ==
[2020-04-22 09:37] LABS: INR 1.99
== END ==
LOC: M LAB REF 09:10
PROVIDERS: ATTEND Internal Medicine Cardiovascular Disease
DX: Z95.2 Presence of prosthetic heart valve (principal)

== ENCOUNTER → 2020-04-26 | Outpatient (REF) | payer OTHER ==
[2020-04-26 12:02] LABS: INR 1.96; PROTHROMBIN TIME 22.8 SECONDS (12.5-14.3)
== END ==
LOC: M LAB REF 11:19
PROVIDERS: ATTEND Internal Medicine Cardiovascular Disease
DX: Z95.2 Presence of prosthetic heart valve (principal)

== ENCOUNTER → 2020-05-03 | Outpatient (REF) | payer OTHER ==
[2020-05-03 11:12] LABS: INR 2.13; PROTHROMBIN TIME 24.3 SECONDS (12.5-14.3)
== END ==
LOC: M LAB REF 10:57
PROVIDERS: ATTEND Internal Medicine Cardiovascular Disease
DX: Z95.2 Presence of prosthetic heart valve (principal)

== ENCOUNTER → 2020-05-05 | Outpatient (CLI) | payer OTHER | LOC: M LABSMTC 12:00 | PROVIDERS: ATTEND Internal Medicine Cardiovascular Disease | DX: Z11.52 Encounter for screening for COVID-19 (principal) ==

== ENCOUNTER → 2020-05-17 | Outpatient (REF) | payer OTHER ==
[2020-05-17 10:16] LABS: INR 1.75; PROTHROMBIN TIME 20.8 SECONDS (12.5-14.3)
== END ==
LOC: M SHH 09:40
PROVIDERS: ATTEND Internal Medicine Cardiovascular Disease
DX: Z95.2 Presence of prosthetic heart valve (principal)

== ENCOUNTER → 2020-05-31 | Outpatient (REF) | payer OTHER ==
[2020-05-31 11:28] LABS: INR 2.11; PROTHROMBIN TIME 24.1 SECONDS (12.5-14.3)
== END ==
LOC: M SHH 09:59
PROVIDERS: ATTEND Internal Medicine Cardiovascular Disease
DX: Z95.2 Presence of prosthetic heart valve (principal)

== ENCOUNTER → 2020-06-13 | Outpatient (CLI) | payer OTHER ==
[2020-06-13 10:39] LABS: INR 2.42; PROTHROMBIN TIME 26.9 SECONDS (12.5-14.3)
== END ==
LOC: M LAB 09:00
PROVIDERS: ATTEND Internal Medicine Cardiovascular Disease
DX: Z95.2 Presence of prosthetic heart valve (principal)

== ENCOUNTER → 2020-06-24 | Outpatient (CLI) | payer OTHER ==
[2020-06-24 09:56] LABS: INR 2.87; PROTHROMBIN TIME 30.8 SECONDS (12.5-14.3)
== END ==
LOC: M LAB 08:35
PROVIDERS: ATTEND Internal Medicine Cardiovascular Disease
DX: Z95.2 Presence of prosthetic heart valve (principal); Z79.01 Long term (current) use of anticoagulants

== ENCOUNTER → 2020-08-04 | Outpatient (CLI) | payer OTHER ==
[2020-08-04 11:11] LABS: INR 2.57; PROTHROMBIN TIME 28.2 SECONDS (12.5-14.3)
== END ==
LOC: M LAB 09:30
PROVIDERS: ATTEND Internal Medicine Cardiovascular Disease
DX: Z95.2 Presence of prosthetic heart valve (principal)

== ENCOUNTER → 2020-08-04 | Outpatient (CLI) | payer OTHER ==
--- NOTE | 2020-08-04 10:06 | REP ---
INDICATION: PAIN IN RIGHT HIP COMPARISON: None. TECHNIQUE: AP and frog-lateral views of the hip FINDINGS: Mild age-related changes include subtle increased sclerosis to the acetabulum with minimal joint space narrowing. No further overt osteoarthritic or significant degenerative changes are appreciated. No evidence for acute or healed injury. Surrounding soft tissues are normal. IMPRESSION: Mild generalized age-related changes. <Electronically signed by Khari Grace > 08/04/20 [id number]
== END ==
LOC: M RAD 09:36
PROVIDERS: ATTEND Family Medicine
DX: M25.551 Pain in right hip (principal)

== ENCOUNTER → 2020-10-05 | Outpatient (CLI) | payer OTHER ==
--- NOTE | 2020-10-05 08:44 | PFTRPT ---
Height: 63.50 Inches Weight: 242.00 Lbs BSA: 2.11 Diagnosis: Z01.810 DATE: 10/05/2020 ORDERING PHYSICIAN: Juliana Schultz NP Pre and post bronchodilator studies have excellent technical quality. Forced vital capacity is reduced. FEV1 is in proportion. Obstructive index is therefore normal. Expiratory limit of the flow-volume loop does suggest flow rate limitation. No significant bronchodilator response is identified. Slow vital capacity is in proportion. Total lung capacity is normal. Residual volume is borderline. Diffusing capacity is significantly reduced but does correct for alveolar volume. No hemoglobin available for correction. Airway resistance and conductance are normal. IMPRESSION: Nonspecific flow rate limitation, cannot rule out air trapping. Please correlate clinically. MTDD
== END ==
LOC: M CARPUL 08:00
DX: Z01.810 Encounter for preprocedural cardiovascular examination (principal)

== ENCOUNTER → 2020-10-05 | Outpatient (CLI) | payer OTHER ==
[2020-10-05 09:36] LABS: INR 2.07; PROTHROMBIN TIME 23.7 SECONDS (12.7-14.5)
== END ==
LOC: M LAB 07:58
PROVIDERS: ATTEND Internal Medicine Cardiovascular Disease
DX: Z95.2 Presence of prosthetic heart valve (principal); Z79.01 Long term (current) use of anticoagulants

== ENCOUNTER → 2020-10-06 | Outpatient (CLI) | payer OTHER ==
--- NOTE | 2020-10-06 15:14 | REP ---
INDICATION: OCCLUSTION / STENOSIS CAROTID ARTERIES. COMPARISON: None. TECHNIQUE: Bilateral carotid artery duplex ultrasound. FINDINGS: Peak flow velocities: Right left Internal carotid artery 48.4 cm/sec 71.7 cm/sec Int. Carotid diastolic 18.7 cm/sec 25.8 cm/sec External carotid artery 70.5 cm/sec 74.4 cm/sec Common carotid artery 73.9 cm/sec 65.0 cm/sec ICA-CCA ratio 0.65 1.10 There is minimal visible atheromatous plaque on the right or the left. Peak flow velocities are normal bilaterally. There is no evidence of stenosis on the right or the left. There is antegrade flow in the vertebral arteries bilaterally. IMPRESSION: There is no evidence of stenosis on the right or the left. <Electronically signed by Farzad Lazo > 10/06/20 [id number]
== END ==
LOC: M RAD 13:58
DX: Z01.810 Encounter for preprocedural cardiovascular examination (principal)

== ENCOUNTER → 2020-12-19 | Outpatient (REF) | payer OTHER ==
[2020-12-19 17:59] LABS: INR 3.78; PROTHROMBIN TIME 37.5 SECONDS (12.7-14.5)
== END ==
LOC: M LAB REF 16:46
PROVIDERS: ATTEND Internal Medicine Cardiovascular Disease
DX: I48.11 Longstanding persistent atrial fibrillation (principal)

== ENCOUNTER → 2020-12-23 | Outpatient (REF) | payer OTHER ==
[2020-12-23 12:18] LABS: INR 4.75; PROTHROMBIN TIME 44.7 SECONDS (12.7-14.5)
== END ==
LOC: M LAB REF 12:03
PROVIDERS: ATTEND Internal Medicine Cardiovascular Disease
DX: I48.11 Longstanding persistent atrial fibrillation (principal)

== ENCOUNTER → 2020-12-26 | Outpatient (REF) | payer OTHER ==
[2020-12-26 17:25] LABS: INR 3.04; PROTHROMBIN TIME 31.8 SECONDS (12.7-14.5)
== END ==
LOC: M LAB REF 16:26
PROVIDERS: ATTEND Internal Medicine Cardiovascular Disease
DX: I48.11 Longstanding persistent atrial fibrillation (principal)

== ENCOUNTER → 2021-01-13 | Outpatient (CLI) | payer OTHER ==
[2021-01-13 11:53] LABS: INR 4.7; PROTHROMBIN TIME 44.3 SECONDS (12.7-14.5)
== END ==
LOC: M LAB 10:48
PROVIDERS: ATTEND Internal Medicine Cardiovascular Disease
DX: Z95.2 Presence of prosthetic heart valve (principal); Z79.01 Long term (current) use of anticoagulants

== ENCOUNTER → 2021-01-25 | Outpatient (CLI) | payer OTHER ==
[2021-01-25 11:41] LABS: PROTHROMBIN TIME 51.1 SECONDS (12.7-14.5)
[2021-01-25 11:56] LABS: INR 5.66
== END ==
LOC: M LAB 09:51
PROVIDERS: ATTEND Internal Medicine Cardiovascular Disease
DX: I48.11 Longstanding persistent atrial fibrillation (principal)

== ENCOUNTER → 2021-01-30 | Outpatient (CLI) | payer OTHER ==
[2021-01-30 13:04] LABS: INR 1.32; PROTHROMBIN TIME 16.8 SECONDS (12.7-14.5)
== END ==
LOC: M LAB 12:01
PROVIDERS: ATTEND Internal Medicine Cardiovascular Disease
DX: Z95.2 Presence of prosthetic heart valve (principal)

== ENCOUNTER → 2021-02-13 | Outpatient (CLI) | payer OTHER ==
[2021-02-13 11:17] LABS: PROTHROMBIN TIME 51.2 SECONDS (12.7-14.5)
[2021-02-13 11:46] LABS: INR 5.68
== END ==
LOC: M LAB 09:56
PROVIDERS: ATTEND Internal Medicine Cardiovascular Disease
DX: I48.11 Longstanding persistent atrial fibrillation (principal)

== ENCOUNTER → 2021-02-17 | Outpatient (CLI) | payer OTHER ==
[2021-02-17 10:48] LABS: INR 3.21; PROTHROMBIN TIME 33.2 SECONDS (12.7-14.5)
== END ==
LOC: M LAB 09:21
PROVIDERS: ATTEND Internal Medicine Cardiovascular Disease
DX: I48.91 Unspecified atrial fibrillation (principal)

== ENCOUNTER 2021-02-27 07:50 | Outpatient (RCR) | payer OTHER | END 2021-03-03 | LOC: M PT 07:50 | PROVIDERS: ATTEND Student in an Organized Health Care Education/Training Program | DX: R26.81 Unsteadiness on feet (principal) ==

== ENCOUNTER → 2021-02-27 | Outpatient (CLI) | payer OTHER ==
[2021-02-27 08:42] LABS: PROTHROMBIN TIME 47.5 SECONDS (12.7-14.5)
[2021-02-27 09:39] LABS: INR 5.14
== END ==
LOC: M LAB 07:31
PROVIDERS: ATTEND Internal Medicine Cardiovascular Disease
DX: I48.11 Longstanding persistent atrial fibrillation (principal)

== ENCOUNTER → 2021-04-12 | Outpatient (CLI) | payer OTHER ==
[2021-04-12 10:42] LABS: PROTHROMBIN TIME 57.5 SECONDS (12.7-14.5)
[2021-04-12 10:44] LABS: INR 6.61
== END ==
LOC: M LAB 09:48
PROVIDERS: ATTEND Internal Medicine Cardiovascular Disease
DX: I48.11 Longstanding persistent atrial fibrillation (principal); Z79.01 Long term (current) use of anticoagulants

== ENCOUNTER → 2021-07-10 | Outpatient (CLI) | payer OTHER | LOC: M WHC 09:13 | PROVIDERS: ATTEND Student in an Organized Health Care Education/Training Program | DX: Z12.31 Encounter for screening mammogram for malignant neoplasm of breast (principal); Z53.8 Procedure and treatment not carried out for other reasons ==

== ENCOUNTER → 2021-08-08 | Outpatient (CLI) | payer OTHER ==
[2021-08-08 09:56] LABS: INR 5.5
== END ==
LOC: M LAB 08:39
PROVIDERS: ATTEND Internal Medicine Cardiovascular Disease
DX: I48.11 Longstanding persistent atrial fibrillation (principal)

== ENCOUNTER → 2021-08-25 | Outpatient (CLI) | payer OTHER | LOC: M EKG 07:26 | PROVIDERS: ATTEND Nurse Practitioner Adult Health | DX: R94.31 Abnormal electrocardiogram [ECG] [EKG] (principal); I25.2 Old myocardial infarction; Z95.2 Presence of prosthetic heart valve; Z51.81 Encounter for therapeutic drug level monitoring ==

== ENCOUNTER → 2021-08-25 | Outpatient (CLI) | payer OTHER ==
[2021-08-25 08:28] LABS: INR 3.55; PROTHROMBIN TIME 35.8 SECONDS (12.7-14.5)
== END ==
LOC: M LAB 07:24
PROVIDERS: ATTEND Internal Medicine Cardiovascular Disease
DX: I48.11 Longstanding persistent atrial fibrillation (principal)

== ENCOUNTER → 2021-09-25 | Outpatient (CLI) | payer OTHER ==
[~2021-09-25] MED LIST changes: +OXYC-405 PO; +OXYC10TA12 PO
== END ==
LOC: M WHC 14:04
PROVIDERS: ATTEND Student in an Organized Health Care Education/Training Program
DX: R22.2 Localized swelling, mass and lump, trunk (principal)

== ENCOUNTER → 2021-10-26 | Outpatient (CLI) | payer OTHER ==
[~2021-10-26] VITALS: Ht 162.6 cm; Wt 105.1 kg
[~2021-10-26] MED LIST changes: +CARV25TA; +CLOP75TA2; +LOSA25TA13; +PROC5TAB57 PO
[2021-10-26 08:25] VITALS: BP 120/71
== END ==
LOC: M PAL 07:43
PROVIDERS: ATTEND Nurse Practitioner Adult Health
DX: G35 Multiple sclerosis (principal); K50.90 Crohn's disease, unspecified, without complications; R29.6 Repeated falls; R42 Dizziness and giddiness; R07.9 Chest pain, unspecified; R06.02 Shortness of breath; R11.15 Cyclical vomiting syndrome unrelated to migraine; M79.2 Neuralgia and neuritis, unspecified; I48.91 Unspecified atrial fibrillation; G43.909 Migraine, unspecified, not intractable, without status migrainosus; I25.2 Old myocardial infarction; Z86.73 Personal history of transient ischemic attack (TIA), and cerebral infarction without residual deficits; J44.9 Chronic obstructive pulmonary disease, unspecified; I50.9 Heart failure, unspecified; G25.81 Restless legs syndrome; G89.4 Chronic pain syndrome; I25.10 Atherosclerotic heart disease of native coronary artery without angina pectoris; F43.10 Post-traumatic stress disorder, unspecified; D15.1 Benign neoplasm of heart; Z95.5 Presence of coronary angioplasty implant and graft; Z90.710 Acquired absence of both cervix and uterus; Z90.89 Acquired absence of other organs; Z80.3 Family history of malignant neoplasm of breast; Z87.891 Personal history of nicotine dependence; Z51.5 Encounter for palliative care; Z79.01 Long term (current) use of anticoagulants; Z79.891 Long term (current) use of opiate analgesic; Z79.899 Other long term (current) drug therapy; Z88.1 Allergy status to other antibiotic agents; Z88.2 Allergy status to sulfonamides; Z88.6 Allergy status to analgesic agent; Z88.5 Allergy status to narcotic agent; Z88.8 Allergy status to other drugs, medicaments and biological substances; Z91.013 Allergy to seafood; Z91.018 Allergy to other foods; Z91.048 Other nonmedicinal substance allergy status; Z79.51 Long term (current) use of inhaled steroids; Z79.4 Long term (current) use of insulin; Z91.040 Latex allergy status; Z91.041 Radiographic dye allergy status; Z88.4 Allergy status to anesthetic agent; Z95.4 Presence of other heart-valve replacement; Z82.49 Family history of ischemic heart disease and other diseases of the circulatory system; Z83.3 Family history of diabetes mellitus; Z81.8 Family history of other mental and behavioral disorders; H54.8 Legal blindness, as defined in USA; F43.23 Adjustment disorder with mixed anxiety and depressed mood

== ENCOUNTER → 2021-12-14 | Outpatient (CLI) | payer OTHER ==
[2021-12-14 08:05] LABS: INR 2.67; PROTHROMBIN TIME 28.9 SECONDS (12.5-14.5)
[2021-12-14 08:36] LABS: CHOLESTEROL RISK RATIO 3.085 (<5)
== END ==
LOC: M LAB 07:21
PROVIDERS: ATTEND Internal Medicine Cardiovascular Disease
DX: I48.11 Longstanding persistent atrial fibrillation (principal)

== ENCOUNTER → 2021-12-21 | Outpatient (CLI) | payer OTHER ==
[~2021-12-21] VITALS: Ht 154.9 cm; Wt 105.3 kg
[~2021-12-21] MED LIST changes: +PROC10TA5 PO; +ZYPR5TAB2 PO
[2021-12-21 08:27] VITALS: BP 143/68
== END ==
LOC: M PAL 07:39
PROVIDERS: ATTEND Nurse Practitioner Adult Health
DX: G35 Multiple sclerosis (principal); J44.9 Chronic obstructive pulmonary disease, unspecified; I21.9 Acute myocardial infarction, unspecified; I50.9 Heart failure, unspecified; R11.15 Cyclical vomiting syndrome unrelated to migraine; F43.23 Adjustment disorder with mixed anxiety and depressed mood; R29.6 Repeated falls; G89.29 Other chronic pain; M79.2 Neuralgia and neuritis, unspecified; I48.91 Unspecified atrial fibrillation; K50.918 Crohn's disease, unspecified, with other complication; D15.1 Benign neoplasm of heart; F43.10 Post-traumatic stress disorder, unspecified; R10.84 Generalized abdominal pain; R42 Dizziness and giddiness; R11.0 Nausea; R07.9 Chest pain, unspecified; Z79.01 Long term (current) use of anticoagulants; Z51.5 Encounter for palliative care; Z79.51 Long term (current) use of inhaled steroids; Z79.891 Long term (current) use of opiate analgesic; Z88.1 Allergy status to other antibiotic agents; Z88.2 Allergy status to sulfonamides; Z88.5 Allergy status to narcotic agent; Z88.6 Allergy status to analgesic agent; Z88.8 Allergy status to other drugs, medicaments and biological substances; Z91.040 Latex allergy status; Z91.041 Radiographic dye allergy status; Z91.013 Allergy to seafood; Z91.018 Allergy to other foods; Z80.3 Family history of malignant neoplasm of breast; Z87.891 Personal history of nicotine dependence; Z95.2 Presence of prosthetic heart valve; Z90.710 Acquired absence of both cervix and uterus; Z99.81 Dependence on supplemental oxygen

== ENCOUNTER → 2022-01-18 | Outpatient (CLI) | payer OTHER ==
[~2022-01-18] MED LIST changes: +CLOP75TA99 PO; -PLAV1TAB2 PO
== END ==
LOC: M PAL 08:33
PROVIDERS: ATTEND Nurse Practitioner Adult Health
DX: G35 Multiple sclerosis (principal); J44.9 Chronic obstructive pulmonary disease, unspecified; I21.9 Acute myocardial infarction, unspecified; I50.9 Heart failure, unspecified; R53.83 Other fatigue; G89.29 Other chronic pain; E66.9 Obesity, unspecified; F43.23 Adjustment disorder with mixed anxiety and depressed mood; M79.2 Neuralgia and neuritis, unspecified; I48.91 Unspecified atrial fibrillation; K50.918 Crohn's disease, unspecified, with other complication; F43.10 Post-traumatic stress disorder, unspecified; R11.15 Cyclical vomiting syndrome unrelated to migraine; R29.6 Repeated falls; Z51.5 Encounter for palliative care; Z79.891 Long term (current) use of opiate analgesic; Z79.01 Long term (current) use of anticoagulants; Z79.51 Long term (current) use of inhaled steroids; Z79.899 Other long term (current) drug therapy; Z88.1 Allergy status to other antibiotic agents; Z88.2 Allergy status to sulfonamides; Z88.5 Allergy status to narcotic agent; Z88.8 Allergy status to other drugs, medicaments and biological substances; Z91.013 Allergy to seafood; Z91.018 Allergy to other foods; Z91.040 Latex allergy status; Z91.041 Radiographic dye allergy status; Z95.2 Presence of prosthetic heart valve; Z90.710 Acquired absence of both cervix and uterus; Z99.81 Dependence on supplemental oxygen; Z80.3 Family history of malignant neoplasm of breast; Z87.891 Personal history of nicotine dependence

== ENCOUNTER → 2022-03-06 | Outpatient (CLI) | payer OTHER | LOC: M PAL 07:52 | PROVIDERS: ATTEND Nurse Practitioner Family | DX: G35 Multiple sclerosis (principal); R07.89 Other chest pain; R10.9 Unspecified abdominal pain; G43.909 Migraine, unspecified, not intractable, without status migrainosus; I25.2 Old myocardial infarction; Z86.73 Personal history of transient ischemic attack (TIA), and cerebral infarction without residual deficits; I50.9 Heart failure, unspecified; F43.10 Post-traumatic stress disorder, unspecified; G25.81 Restless legs syndrome; I25.10 Atherosclerotic heart disease of native coronary artery without angina pectoris; G89.4 Chronic pain syndrome; J44.9 Chronic obstructive pulmonary disease, unspecified; Z51.5 Encounter for palliative care; Z79.891 Long term (current) use of opiate analgesic; Z79.899 Other long term (current) drug therapy; Z90.710 Acquired absence of both cervix and uterus; Z99.81 Dependence on supplemental oxygen; Z80.3 Family history of malignant neoplasm of breast; Z87.891 Personal history of nicotine dependence; H54.8 Legal blindness, as defined in USA; R11.2 Nausea with vomiting, unspecified; Z79.51 Long term (current) use of inhaled steroids; Z88.1 Allergy status to other antibiotic agents; Z88.2 Allergy status to sulfonamides; Z88.5 Allergy status to narcotic agent; Z88.6 Allergy status to analgesic agent; Z88.8 Allergy status to other drugs, medicaments and biological substances; Z91.013 Allergy to seafood; Z91.048 Other nonmedicinal substance allergy status ==

== ENCOUNTER → 2022-03-15 | Outpatient (CLI) | payer OTHER ==
[2022-03-15 12:49] LABS: BASO % 0.2 % (0.0-1.0); EOS # 0.3 10^3/uL (0.0-0.5); HEMATOCRIT 43.8 % (36.0-47.0); HEMOGLOBIN 13.7 g/dl (12.0-15.5); LYMPH # 2.1 10^3/uL (1.5-5.0); LYMPH % 21.2 % (24.0-44.0); MEAN CORPUSCULAR HEMOGLOBIN 32.5 pg (27.0-33.0); MEAN CORPUSCULAR HGB CONC 31.3 g/dl (32.0-36.5); MEAN CORPUSCULAR VOLUME 103.8 fl (80.0-96.0); MONO # 0.6 10^3/uL (0.0-0.8); MONO % 6.1 % (2.0-8.0); NEUTROPHILS # 6.9 10^3/uL (1.5-8.5); NEUTROPHILS % 69.1 % (36.0-66.0); PLATELET COUNT, AUTOMATED 325 10^3/uL (150-450); RED BLOOD COUNT 4.22 10^6/uL (4.00-5.40); WHITE BLOOD COUNT 9.9 10^3/uL (4.0-10.0)
[2022-03-15 13:01] LABS: INR 2.04; PROTHROMBIN TIME 23.4 SECONDS (12.5-14.5)
[2022-03-15 13:14] LABS: ALBUMIN 4.2 G/DL (3.2-5.2); ALKALINE PHOSPHATASE 42 U/L (46-116); ALT/SGPT 14 U/L (7.0-40); AST/SGOT 23 U/L (<34); BILIRUBIN,TOTAL 0.2 MG/DL (0.3-1.2); BLOOD UREA NITROGEN 15 MG/DL (9-23); CALCIUM LEVEL 9.7 MG/DL (8.5-10.1); CARBON DIOXIDE LEVEL 30 MMOL/L (20-31); CHLORIDE LEVEL 103 MMOL/L (98-107); CHOLESTEROL LEVEL 137 MG/DL (<200); CHOLESTEROL RISK RATIO 3.59 (<5); CREATININE FOR GFR 0.77 MG/DL (0.55-1.30); GLOMERULAR FILTRATION RATE > 60.0 (>51); GLUCOSE, FASTING 93 MG/DL (60-100); HDL CHOLESTEROL 38.1 MG/DL (>40); LDL CHOLESTEROL 68.7 MG/DL (<100); NON-HDL-C 99 MG/DL; POTASSIUM SERUM 4.6 MMOL/L (3.5-5.1); SODIUM LEVEL 138 MMOL/L (136-145); TOTAL PROTEIN 6.9 G/DL (5.7-8.2); TRIGLYCERIDES LEVEL 151 MG/DL (<150)
[2022-03-15 13:15] LABS: THYROID STIMULATING HORMONE 1.188 uIU/ML (0.55-4.78)
== END ==
LOC: M RAD 11:53
PROVIDERS: ATTEND Internal Medicine Cardiovascular Disease
DX: R06.09 Other forms of dyspnea (principal)

== ENCOUNTER → 2022-04-21 | Outpatient (CLI) | payer OTHER ==
[~2022-04-21] MED LIST changes: +AMIO200T49 PO
[2022-04-21 10:40] LABS: ALBUMIN 4.4 G/DL (3.2-5.2); ALKALINE PHOSPHATASE 27 U/L (46-116); ALT/SGPT 24 U/L (7.0-40); AST/SGOT 40 U/L (<34); BILIRUBIN,TOTAL 0.3 MG/DL (0.3-1.2); BLOOD UREA NITROGEN 18 MG/DL (9-23); CALCIUM LEVEL 9.3 MG/DL (8.5-10.1); CARBON DIOXIDE LEVEL 24 MMOL/L (20-31); CHLORIDE LEVEL 105 MMOL/L (98-107); CREATININE FOR GFR 0.71 MG/DL (0.55-1.30); GLOMERULAR FILTRATION RATE > 60.0 (>51); GLUCOSE, FASTING 106 MG/DL (60-100); POTASSIUM SERUM 5.8 MMOL/L (3.5-5.1); SODIUM LEVEL 137 MMOL/L (136-145); TOTAL PROTEIN 7.2 G/DL (5.7-8.2)
[2022-04-21 10:47] LABS: BASO % 0.2 % (0.0-1.0); EOS # 0.2 10^3/uL (0.0-0.5); EOS % 1.4 % (0.0-3.0); HEMATOCRIT 46.4 % (36.0-47.0); HEMOGLOBIN 15.2 g/dl (12.0-15.5); LYMPH # 2.5 10^3/uL (1.5-5.0); MEAN CORPUSCULAR HEMOGLOBIN 32.1 pg (27.0-33.0); MEAN CORPUSCULAR HGB CONC 32.8 g/dl (32.0-36.5); MEAN CORPUSCULAR VOLUME 97.9 fl (80.0-96.0); MONO # 0.9 10^3/uL (0.0-0.8); MONO % 5.6 % (2.0-8.0); NEUTROPHILS # 12.8 10^3/uL (1.5-8.5); NEUTROPHILS % 77.3 % (36.0-66.0); PLATELET COUNT, AUTOMATED 296 10^3/uL (150-450); RED BLOOD COUNT 4.74 10^6/uL (4.00-5.40); WHITE BLOOD COUNT 16.6 10^3/uL (4.0-10.0)
== END ==
LOC: M LAB 09:46
DX: R06.02 Shortness of breath (principal)

== ENCOUNTER → 2022-04-21 | Outpatient (CLI) | payer OTHER ==
[2022-04-21 10:34] LABS: INR 2.63; PROTHROMBIN TIME 28.5 SECONDS (12.5-14.5)
== END ==
LOC: M LAB 09:44
PROVIDERS: ATTEND Internal Medicine Cardiovascular Disease
DX: I48.19 Other persistent atrial fibrillation (principal)

== ENCOUNTER → 2022-05-08 | Outpatient (CLI) | payer OTHER ==
[~2022-05-08] MED LIST changes: -OXYC-405 PO; +OXYC40TA40 PO
== END ==
LOC: M PAL 07:46
PROVIDERS: ATTEND Nurse Practitioner Adult Health
DX: G35 Multiple sclerosis (principal); R07.89 Other chest pain; G43.909 Migraine, unspecified, not intractable, without status migrainosus; I25.2 Old myocardial infarction; Z86.73 Personal history of transient ischemic attack (TIA), and cerebral infarction without residual deficits; I50.9 Heart failure, unspecified; F43.10 Post-traumatic stress disorder, unspecified; G25.81 Restless legs syndrome; G89.4 Chronic pain syndrome; H54.8 Legal blindness, as defined in USA; I25.10 Atherosclerotic heart disease of native coronary artery without angina pectoris; J44.9 Chronic obstructive pulmonary disease, unspecified; R11.2 Nausea with vomiting, unspecified; Z51.5 Encounter for palliative care; Z79.891 Long term (current) use of opiate analgesic; Z79.899 Other long term (current) drug therapy; Z90.710 Acquired absence of both cervix and uterus; Z99.81 Dependence on supplemental oxygen; Z80.3 Family history of malignant neoplasm of breast; Z87.891 Personal history of nicotine dependence; Z79.51 Long term (current) use of inhaled steroids; Z88.1 Allergy status to other antibiotic agents; Z88.2 Allergy status to sulfonamides; Z88.5 Allergy status to narcotic agent; Z88.6 Allergy status to analgesic agent; Z88.8 Allergy status to other drugs, medicaments and biological substances; Z91.013 Allergy to seafood; Z91.048 Other nonmedicinal substance allergy status

== ENCOUNTER → 2022-07-18 | Outpatient (CLI) | payer OTHER ==
[~2022-07-18] MED LIST changes: -CARV25TA; +CARV25TA PO
== END ==
LOC: M PAL 07:49
PROVIDERS: ATTEND Nurse Practitioner Adult Health
DX: G89.4 Chronic pain syndrome (principal); Z51.5 Encounter for palliative care; Z79.891 Long term (current) use of opiate analgesic; I50.9 Heart failure, unspecified; I48.91 Unspecified atrial fibrillation; I25.2 Old myocardial infarction; F32.A Depression, unspecified; F41.9 Anxiety disorder, unspecified; J44.9 Chronic obstructive pulmonary disease, unspecified; G35 Multiple sclerosis; D21.9 Benign neoplasm of connective and other soft tissue, unspecified; H54.8 Legal blindness, as defined in USA; K58.9 Irritable bowel syndrome, unspecified; Z95.2 Presence of prosthetic heart valve; Z79.899 Other long term (current) drug therapy; Z90.710 Acquired absence of both cervix and uterus; Z98.61 Coronary angioplasty status; Z86.73 Personal history of transient ischemic attack (TIA), and cerebral infarction without residual deficits; R11.2 Nausea with vomiting, unspecified; Z87.891 Personal history of nicotine dependence; Z88.2 Allergy status to sulfonamides; Z88.1 Allergy status to other antibiotic agents; Z91.040 Latex allergy status; Z80.3 Family history of malignant neoplasm of breast; Z88.5 Allergy status to narcotic agent; Z91.041 Radiographic dye allergy status; Z88.6 Allergy status to analgesic agent; Z91.013 Allergy to seafood; Z91.018 Allergy to other foods; Z90.49 Acquired absence of other specified parts of digestive tract

== ENCOUNTER → 2022-08-20 | Outpatient (CLI) | payer OTHER | LOC: M WHC 08:39 | PROVIDERS: ATTEND Student in an Organized Health Care Education/Training Program | DX: M79.89 Other specified soft tissue disorders (principal) ==

== ENCOUNTER → 2022-10-09 | Outpatient (CLI) | payer OTHER ==
[~2022-10-09] VITALS: Ht 161.3 cm; Wt 112.8 kg
[~2022-10-09] MED LIST changes: -ROPI0.5T3 PO; +ROPI0.5T33 PO
[2022-10-09 07:55] VITALS: TEMP 97.1; O2SAT 94
[2022-10-09 08:04] VITALS: BP 121/70
== END ==
LOC: M PAL 07:46
PROVIDERS: ATTEND Nurse Practitioner Adult Health
DX: I50.9 Heart failure, unspecified (principal); J44.9 Chronic obstructive pulmonary disease, unspecified; G35 Multiple sclerosis; G89.4 Chronic pain syndrome; D21.9 Benign neoplasm of connective and other soft tissue, unspecified; I25.2 Old myocardial infarction; Z95.2 Presence of prosthetic heart valve; Z95.5 Presence of coronary angioplasty implant and graft; K58.9 Irritable bowel syndrome, unspecified; Z79.891 Long term (current) use of opiate analgesic; I48.91 Unspecified atrial fibrillation; Z79.899 Other long term (current) drug therapy; F32.A Depression, unspecified; F41.9 Anxiety disorder, unspecified; Z63.79 Other stressful life events affecting family and household; Z87.891 Personal history of nicotine dependence; Z80.3 Family history of malignant neoplasm of breast; Z86.73 Personal history of transient ischemic attack (TIA), and cerebral infarction without residual deficits; R11.2 Nausea with vomiting, unspecified; Z99.81 Dependence on supplemental oxygen; R53.83 Other fatigue; Z88.2 Allergy status to sulfonamides; Z88.1 Allergy status to other antibiotic agents; Z91.040 Latex allergy status; Z88.5 Allergy status to narcotic agent; Z91.041 Radiographic dye allergy status; Z91.048 Other nonmedicinal substance allergy status; Z88.6 Allergy status to analgesic agent; Z91.018 Allergy to other foods; Z91.013 Allergy to seafood; Z51.5 Encounter for palliative care

== ENCOUNTER 2022-11-17 13:35 | Emergency (ER) | payer OTHER ==
[2022-11-17] MEDS ORDERED: NITROGLYCERIN 0.4MG SUBL TABLET SL PRN (14:10)
[2022-11-17 14:15] VITALS: BP 173/72
[2022-11-17 14:38] LABS: CK-MB VALUE MASS 1.5 NG/ML (<3.6); LIPASE 31 U/L (12-53)
[2022-11-17 14:41] LABS: ALBUMIN 3.7 G/DL (3.2-5.2); ALKALINE PHOSPHATASE 34 U/L (46-116); ALT/SGPT 16 U/L (7.0-40); AST/SGOT 29 U/L (<34); BILIRUBIN,DIRECT < 0.1 MG/DL (<0.4); BILIRUBIN,TOTAL < 0.2 MG/DL (0.3-1.2); BLOOD UREA NITROGEN 13 MG/DL (9-23); CALCIUM LEVEL 9.4 MG/DL (8.5-10.1); CARBON DIOXIDE LEVEL 32 MMOL/L (20-31); CHLORIDE LEVEL 103 MMOL/L (98-107); GLOMERULAR FILTRATION RATE > 60.0 (>51); GLUCOSE, FASTING 116 MG/DL (60-100); POTASSIUM SERUM 4.7 MMOL/L (3.5-5.1); SODIUM LEVEL 141 MMOL/L (136-145); TOTAL PROTEIN 6.4 G/DL (5.7-8.2)
[2022-11-17 14:42] LABS: FREE T4 1.25 NG/DL (0.89-1.76)
[2022-11-17 14:43] LABS: THYROID STIMULATING HORMONE 1.279 uIU/ML (0.55-4.78)
[2022-11-17 14:46] LABS: CPK CREATINE PHOSPHOKINASE 204 U/L (34-145); MB/CK RELATIVE INDEX 0.73 (< OR =4)
[2022-11-17 14:57] LABS: BASO % 0.2 % (0.0-1.0); EOS # 0.4 10^3/uL (0.0-0.5); EOS % 4.4 % (0.0-3.0); HEMATOCRIT 36.6 % (36.0-47.0); HEMOGLOBIN 11.9 g/dl (12.0-15.5); LYMPH # 2.1 10^3/uL (1.5-5.0); LYMPH % 24.9 % (24.0-44.0); MEAN CORPUSCULAR HEMOGLOBIN 32.1 pg (27.0-33.0); MEAN CORPUSCULAR HGB CONC 32.5 g/dl (32.0-36.5); MEAN CORPUSCULAR VOLUME 98.7 fl (80.0-96.0); MONO # 0.5 10^3/uL (0.0-0.8); MONO % 5.9 % (2.0-8.0); NEUTROPHILS # 5.3 10^3/uL (1.5-8.5); NEUTROPHILS % 63.9 % (36.0-66.0); PLATELET COUNT, AUTOMATED 307 10^3/uL (150-450); RED BLOOD COUNT 3.71 10^6/uL (4.00-5.40); WHITE BLOOD COUNT 8.4 10^3/uL (4.0-10.0)
[2022-11-17 15:09] LABS: INR 3.72
[2022-11-17 15:11] LABS: D-DIMER QUANT < 0.27 ug/mL (<0.5)
[2022-11-17 15:55] LABS: CK-MB VALUE MASS < 1.0 NG/ML (<3.6)
[2022-11-17 15:57] LABS: CPK CREATINE PHOSPHOKINASE 141 U/L (34-145)
[2022-11-17 16:12] VITALS: BP 130/60; TEMP 98.7; O2SAT 96
== END 2022-11-17 16:24 | disposition home or self-care (01) ==
LOC: M ED 13:35 → EDBD 13:35 → M ED 16:24
DX: R07.9 Chest pain, unspecified (principal); R00.1 Bradycardia, unspecified; I25.2 Old myocardial infarction; J44.9 Chronic obstructive pulmonary disease, unspecified; Z79.83 Long term (current) use of bisphosphonates; Z88.1 Allergy status to other antibiotic agents; Z88.2 Allergy status to sulfonamides; Z88.5 Allergy status to narcotic agent; Z88.6 Allergy status to analgesic agent; Z88.8 Allergy status to other drugs, medicaments and biological substances; Z91.048 Other nonmedicinal substance allergy status; Z79.01 Long term (current) use of anticoagulants; Z79.52 Long term (current) use of systemic steroids; Z79.02 Long term (current) use of antithrombotics/antiplatelets; Z79.899 Other long term (current) drug therapy

== ENCOUNTER → 2022-11-19 | Outpatient (CLI) | payer OTHER ==
[2022-11-19 07:22] LABS: BASO % 0.3 % (0.0-1.0); EOS # 0.3 10^3/uL (0.0-0.5); EOS % 3.7 % (0.0-3.0); HEMATOCRIT 40.3 % (36.0-47.0); HEMOGLOBIN 12.6 g/dl (12.0-15.5); LYMPH # 1.7 10^3/uL (1.5-5.0); LYMPH % 18.9 % (24.0-44.0); MEAN CORPUSCULAR HEMOGLOBIN 31.7 pg (27.0-33.0); MEAN CORPUSCULAR HGB CONC 31.3 g/dl (32.0-36.5); MEAN CORPUSCULAR VOLUME 101.3 fl (80.0-96.0); MONO # 0.6 10^3/uL (0.0-0.8); MONO % 6.9 % (2.0-8.0); NEUTROPHILS # 6.3 10^3/uL (1.5-8.5); NEUTROPHILS % 69.8 % (36.0-66.0); PLATELET COUNT, AUTOMATED 276 10^3/uL (150-450); RED BLOOD COUNT 3.98 10^6/uL (4.00-5.40); WHITE BLOOD COUNT 9.1 10^3/uL (4.0-10.0)
[2022-11-19 07:35] LABS: INR 3.45; PROTHROMBIN TIME 33.9 SECONDS (12.5-14.5)
[2022-11-19 07:49] LABS: ALBUMIN 3.7 G/DL (3.2-5.2); ALKALINE PHOSPHATASE 35 U/L (46-116); ALT/SGPT 14 U/L (7.0-40); AST/SGOT 18 U/L (<34); BILIRUBIN,TOTAL 0.2 MG/DL (0.3-1.2); BLOOD UREA NITROGEN 13 MG/DL (9-23); CALCIUM LEVEL 8.9 MG/DL (8.5-10.1); CARBON DIOXIDE LEVEL 26 MMOL/L (20-31); CHLORIDE LEVEL 106 MMOL/L (98-107); CHOLESTEROL LEVEL 131 MG/DL (<200); CHOLESTEROL RISK RATIO 3.94 (<5); CREATININE FOR GFR 0.79 MG/DL (0.55-1.30); GLOMERULAR FILTRATION RATE > 60.0 (>51); GLUCOSE, FASTING 112 MG/DL (60-100); HDL CHOLESTEROL 33.2 MG/DL (>40); LDL CHOLESTEROL 48.6 MG/DL (<100); MAGNESIUM LEVEL 1.8 MG/DL (1.8-2.4); NON-HDL-C 97.8 MG/DL; POTASSIUM SERUM 4.5 MMOL/L (3.5-5.1); SODIUM LEVEL 140 MMOL/L (136-145); TOTAL PROTEIN 6.3 G/DL (5.7-8.2); TRIGLYCERIDES LEVEL 246 MG/DL (<150)
== END ==
LOC: M LAB 06:47
PROVIDERS: ATTEND Internal Medicine Cardiovascular Disease
DX: I48.0 Paroxysmal atrial fibrillation (principal)

== ENCOUNTER → 2022-12-07 | Outpatient (CLI) | payer OTHER ==
[2022-12-07 08:10] LABS: INR 2.15; PROTHROMBIN TIME 23.5 SECONDS (12.5-14.5)
== END ==
LOC: M LAB 06:54
PROVIDERS: ATTEND Internal Medicine Cardiovascular Disease
DX: I48.0 Paroxysmal atrial fibrillation (principal)

== ENCOUNTER → 2022-12-18 | Outpatient (CLI) | payer OTHER | LOC: M PAL 08:03 | PROVIDERS: ATTEND Nurse Practitioner Adult Health | DX: I50.9 Heart failure, unspecified (principal); J44.9 Chronic obstructive pulmonary disease, unspecified; G35 Multiple sclerosis; G89.4 Chronic pain syndrome; D21.9 Benign neoplasm of connective and other soft tissue, unspecified; I25.2 Old myocardial infarction; I48.91 Unspecified atrial fibrillation; K58.9 Irritable bowel syndrome, unspecified; F32.A Depression, unspecified; F41.9 Anxiety disorder, unspecified; R11.2 Nausea with vomiting, unspecified; R53.83 Other fatigue; Z79.02 Long term (current) use of antithrombotics/antiplatelets; Z79.891 Long term (current) use of opiate analgesic; Z79.899 Other long term (current) drug therapy; Z63.79 Other stressful life events affecting family and household; Z80.3 Family history of malignant neoplasm of breast; Z86.73 Personal history of transient ischemic attack (TIA), and cerebral infarction without residual deficits; Z87.891 Personal history of nicotine dependence; Z88.1 Allergy status to other antibiotic agents; Z88.2 Allergy status to sulfonamides; Z88.4 Allergy status to anesthetic agent; Z88.5 Allergy status to narcotic agent; Z88.8 Allergy status to other drugs, medicaments and biological substances; Z95.2 Presence of prosthetic heart valve; Z95.5 Presence of coronary angioplasty implant and graft; Z99.81 Dependence on supplemental oxygen; Z51.5 Encounter for palliative care; Z91.040 Latex allergy status; Z91.013 Allergy to seafood; Z91.018 Allergy to other foods; Z91.041 Radiographic dye allergy status; Z91.048 Other nonmedicinal substance allergy status ==

== ENCOUNTER → 2023-03-05 | Outpatient (CLI) | payer OTHER | LOC: M PAL 08:07 | PROVIDERS: ATTEND Nurse Practitioner Adult Health | DX: I50.9 Heart failure, unspecified (principal); J44.9 Chronic obstructive pulmonary disease, unspecified; G35 Multiple sclerosis; G89.4 Chronic pain syndrome; I20.9 Angina pectoris, unspecified; D21.9 Benign neoplasm of connective and other soft tissue, unspecified; I25.2 Old myocardial infarction; K58.9 Irritable bowel syndrome, unspecified; F32.A Depression, unspecified; F41.9 Anxiety disorder, unspecified; R11.2 Nausea with vomiting, unspecified; R53.83 Other fatigue; Z79.01 Long term (current) use of anticoagulants; Z79.891 Long term (current) use of opiate analgesic; Z79.899 Other long term (current) drug therapy; Z63.79 Other stressful life events affecting family and household; Z80.3 Family history of malignant neoplasm of breast; Z86.73 Personal history of transient ischemic attack (TIA), and cerebral infarction without residual deficits; Z87.891 Personal history of nicotine dependence; Z88.1 Allergy status to other antibiotic agents; Z88.2 Allergy status to sulfonamides; Z88.4 Allergy status to anesthetic agent; Z88.5 Allergy status to narcotic agent; Z88.6 Allergy status to analgesic agent; Z88.8 Allergy status to other drugs, medicaments and biological substances; Z95.2 Presence of prosthetic heart valve; Z95.5 Presence of coronary angioplasty implant and graft; Z99.81 Dependence on supplemental oxygen; Z51.5 Encounter for palliative care; Z91.040 Latex allergy status; Z91.013 Allergy to seafood; Z91.018 Allergy to other foods; Z91.048 Other nonmedicinal substance allergy status ==

== ENCOUNTER 2023-06-17 11:47 | Emergency (ER) | payer OTHER ==
[~2023-06-17] VITALS: Ht 160 cm; Wt 105.5 kg
[~2023-06-17 11:47] MED LIST changes: -POTA20EL PO; +POTA20LI16 PO
[2023-06-17 13:16] LABS: BASO % 0.3 % (0.0-1.0); EOS # 0.3 10^3/uL (0.0-0.5); HEMATOCRIT 48.8 % (36.0-47.0); HEMOGLOBIN 15.9 g/dl (12.0-15.5); LYMPH # 1.9 10^3/uL (1.5-5.0); LYMPH % 19.9 % (24.0-44.0); MEAN CORPUSCULAR HEMOGLOBIN 31.4 pg (27.0-33.0); MEAN CORPUSCULAR HGB CONC 32.6 g/dl (32.0-36.5); MEAN CORPUSCULAR VOLUME 96.4 fl (80.0-96.0); MONO # 0.6 10^3/uL (0.0-0.8); MONO % 5.9 % (2.0-8.0); NEUTROPHILS # 6.9 10^3/uL (1.5-8.5); NEUTROPHILS % 70.6 % (36.0-66.0); PLATELET COUNT, AUTOMATED 363 10^3/uL (150-450); RED BLOOD COUNT 5.06 10^6/uL (4.00-5.40); WHITE BLOOD COUNT 9.8 10^3/uL (4.0-10.0)
[2023-06-17] MEDS ORDERED: NITROGLYCERIN 2% OINT 1 GM *U/D* PKT TOP ONE (13:20)
[2023-06-17 13:44] LABS: BLOOD UREA NITROGEN 15 MG/DL (9-23); CALCIUM LEVEL 9.9 MG/DL (8.5-10.1); CARBON DIOXIDE LEVEL 28 MMOL/L (20-31); CHLORIDE LEVEL 106 MMOL/L (98-107); CK-MB VALUE MASS 1.3 NG/ML (<3.6); CREATININE FOR GFR 0.65 MG/DL (0.55-1.30); GLOMERULAR FILTRATION RATE > 60.0 (>51); GLUCOSE, FASTING 121 MG/DL (60-100); POTASSIUM SERUM 4.4 MMOL/L (3.5-5.1); SODIUM LEVEL 138 MMOL/L (136-145)
[2023-06-17 13:46] LABS: CPK CREATINE PHOSPHOKINASE 94 U/L (34-145); MB/CK RELATIVE INDEX 1.38 (< OR =4)
[2023-06-17] MEDS: NITROGLYCERIN 0.4MG SUBL TABLET SL PRN (14:00)
[2023-06-17 14:51] LABS: INR 1.9; PROTHROMBIN TIME 21.1 SECONDS (12.5-14.5)
[2023-06-17 15:10] LABS: C REACTIVE PROTEIN QUANTITATIV < 0.40 MG/DL (<1.0)
[2023-06-17 15:12] LABS: ALBUMIN 4.1 G/DL (3.2-5.2); ALKALINE PHOSPHATASE 44 U/L (46-116); ALT/SGPT 19 U/L (7.0-40); AST/SGOT 17 U/L (<34); BILIRUBIN,DIRECT 0.1 MG/DL (<0.4); BILIRUBIN,TOTAL 0.3 MG/DL (0.3-1.2); CK-MB VALUE MASS 1.4 NG/ML (<3.6); TOTAL PROTEIN 7.2 G/DL (5.7-8.2)
[2023-06-17 15:23] LABS: PROCALCITONIN <0.04 ng/ml
[2023-06-17 15:29] LABS: CPK CREATINE PHOSPHOKINASE 67 U/L (34-145); MB/CK RELATIVE INDEX 2.08 (< OR =4)
[2023-06-17] MEDS: ALPRAZolam 0.5 MG TAB PO ONE (15:42)
[2023-06-17] MEDS: oxyCODONE 5MG TAB PO ONE (15:43)
[2023-06-17 16:28] VITALS: TEMP 97.4
[2023-06-17] MEDS ORDERED: HEPARIN SOD (PORCINE) 5000UNITS/ML 1ML VIAL/SYRINGE IV PRN (16:55)
[2023-06-17 17:39] VITALS: BP 136/65
[2023-06-17] MEDS: METOPROLOL TART 50 MG TAB PO ONE (17:39)
[2023-06-17] MEDS: HEPARIN DRIP 25,000 UNITS in IV 1 EA IV SCH (18:22)
[2023-06-17] MEDS: ALPRAZolam 0.5 MG TAB PO PRN (20:28)
[2023-06-17] MEDS: oxyCODONE 20MG CR TAB PO SCH (20:28)
[2023-06-17] MEDS: METOPROLOL TART 50 MG TAB PO SCH (21:00)
[2023-06-17] MEDS: AMIODARONE 100MG TABLET (PACERONE) PO SCH (21:00)
[2023-06-17] MEDS: rOPINIRole 0.25 MG TAB(REQUIP) PO SCH (21:00)
[2023-06-18] MEDS: oxyCODONE 5MG TAB PO PRN (04:20)
[2023-06-18] MEDS ORDERED: ONDANSETRON 4MG ORAL DISINTEGRATING TAB PO ONE (06:25)
[2023-06-18] MEDS ORDERED: MED REC IN PROGRESS XX SCH (07:50)
[2023-06-18] MEDS ORDERED: TRAZ-252 PO (08:47)
[2023-06-18] MEDS ORDERED: CARV6.25 PO (08:47)
[2023-06-18] MEDS ORDERED: OXYC40TA29 PO (08:47)
[2023-06-18] MEDS ORDERED: NITR0.2D5 TD (08:47)
[2023-06-18] MEDS ORDERED: CLIN1GEL3 TOP (08:47)
[2023-06-18] MEDS ORDERED: ONDA-84 PO (08:47)
[2023-06-18] MEDS ORDERED: PROC10TA5 PO (08:47)
[2023-06-18] MEDS ORDERED: OXYC10TA12 PO (08:47)
[2023-06-18 08:48] VITALS: BP 114/67; O2SAT 92
[2023-06-18] MEDS ORDERED: HOME MED LIST COMPLETE! XX SCH (08:50)
[2023-06-18] MEDS ORDERED: LOSARTAN 25 MG TAB PO SCH (09:00)
[2023-06-18] MEDS ORDERED: CLOPIDOGREL 75 MG TAB PO SCH (09:00)
== END 2023-06-18 08:53 | disposition short-term general hospital (02) ==
LOC: M ED 11:47
DX: I20.0 Unstable angina (principal); E11.9 Type 2 diabetes mellitus without complications; I50.22 Chronic systolic (congestive) heart failure; I11.0 Hypertensive heart disease with heart failure; Z88.8 Allergy status to other drugs, medicaments and biological substances; Z88.2 Allergy status to sulfonamides; Z91.040 Latex allergy status; Z79.1 Long term (current) use of non-steroidal anti-inflammatories (NSAID); Z79.51 Long term (current) use of inhaled steroids; Z79.4 Long term (current) use of insulin; Z79.899 Other long term (current) drug therapy

== ENCOUNTER → 2023-06-21 | Outpatient (CLI) | payer OTHER ==
[~2023-06-21] MED LIST changes: +CARV6.25 PO; +CLIN1GEL3 TOP; +NITR0.2D5 TD; +ONDA-84 PO; +OXYC40TA29 PO; +TRAZ-252 PO
[2023-06-21 12:59] LABS: INR 1.59; PROTHROMBIN TIME 18.4 SECONDS (12.5-14.5)
== END ==
LOC: M LAB 11:08
PROVIDERS: ATTEND Internal Medicine Cardiovascular Disease
DX: Z79.01 Long term (current) use of anticoagulants (principal)

== ENCOUNTER → 2023-06-29 | Outpatient (CLI) | payer OTHER ==
[2023-06-29 11:36] LABS: INR 1.33; PROTHROMBIN TIME 16.1 SECONDS (12.5-14.5)
== END ==
LOC: M LAB 10:53
PROVIDERS: ATTEND Internal Medicine Cardiovascular Disease
DX: I48.0 Paroxysmal atrial fibrillation (principal)

== ENCOUNTER → 2023-07-23 | Outpatient (CLI) | payer OTHER ==
[2023-07-23 10:23] LABS: INR 2.82; PROTHROMBIN TIME 28.6 SECONDS (12.5-14.5)
== END ==
LOC: M LAB 08:40
PROVIDERS: ATTEND Internal Medicine Cardiovascular Disease
DX: I48.0 Paroxysmal atrial fibrillation (principal)

== ENCOUNTER → 2023-07-24 | Outpatient (CLI) | payer OTHER | LOC: M PAL 07:42 | PROVIDERS: ATTEND Nurse Practitioner Adult Health | DX: I50.9 Heart failure, unspecified (principal); J44.9 Chronic obstructive pulmonary disease, unspecified; G35 Multiple sclerosis; G89.4 Chronic pain syndrome; I20.9 Angina pectoris, unspecified; D21.9 Benign neoplasm of connective and other soft tissue, unspecified; I25.2 Old myocardial infarction; K58.9 Irritable bowel syndrome, unspecified; F32.A Depression, unspecified; F41.9 Anxiety disorder, unspecified; R11.2 Nausea with vomiting, unspecified; R53.83 Other fatigue; Z79.01 Long term (current) use of anticoagulants; Z79.891 Long term (current) use of opiate analgesic; Z79.899 Other long term (current) drug therapy; Z63.79 Other stressful life events affecting family and household; Z80.3 Family history of malignant neoplasm of breast; Z86.73 Personal history of transient ischemic attack (TIA), and cerebral infarction without residual deficits; Z87.891 Personal history of nicotine dependence; Z88.1 Allergy status to other antibiotic agents; Z88.2 Allergy status to sulfonamides; Z88.4 Allergy status to anesthetic agent; Z88.5 Allergy status to narcotic agent; Z88.6 Allergy status to analgesic agent; Z88.8 Allergy status to other drugs, medicaments and biological substances; Z95.2 Presence of prosthetic heart valve; Z95.5 Presence of coronary angioplasty implant and graft; Z99.81 Dependence on supplemental oxygen; Z51.5 Encounter for palliative care; Z91.040 Latex allergy status; Z91.013 Allergy to seafood; Z91.018 Allergy to other foods; Z91.048 Other nonmedicinal substance allergy status ==

== ENCOUNTER → 2023-09-24 | Outpatient (CLI) | payer OTHER | LOC: M PAL 07:44 | PROVIDERS: ATTEND Nurse Practitioner Adult Health | DX: I50.9 Heart failure, unspecified (principal); J44.9 Chronic obstructive pulmonary disease, unspecified; G35 Multiple sclerosis; G89.4 Chronic pain syndrome; D21.9 Benign neoplasm of connective and other soft tissue, unspecified; I25.2 Old myocardial infarction; K58.9 Irritable bowel syndrome, unspecified; F32.A Depression, unspecified; F41.9 Anxiety disorder, unspecified; R11.2 Nausea with vomiting, unspecified; R53.83 Other fatigue; Z51.5 Encounter for palliative care; Z79.01 Long term (current) use of anticoagulants; Z79.4 Long term (current) use of insulin; Z79.891 Long term (current) use of opiate analgesic; Z79.899 Other long term (current) drug therapy; Z63.79 Other stressful life events affecting family and household; Z80.3 Family history of malignant neoplasm of breast; Z86.73 Personal history of transient ischemic attack (TIA), and cerebral infarction without residual deficits; Z87.891 Personal history of nicotine dependence; Z88.1 Allergy status to other antibiotic agents; Z88.2 Allergy status to sulfonamides; Z88.4 Allergy status to anesthetic agent; Z88.5 Allergy status to narcotic agent; Z88.6 Allergy status to analgesic agent; Z88.8 Allergy status to other drugs, medicaments and biological substances; Z95.2 Presence of prosthetic heart valve; Z95.5 Presence of coronary angioplasty implant and graft; Z99.81 Dependence on supplemental oxygen; Z91.040 Latex allergy status; Z91.013 Allergy to seafood; Z91.018 Allergy to other foods; Z91.048 Other nonmedicinal substance allergy status; Z90.710 Acquired absence of both cervix and uterus; Z90.49 Acquired absence of other specified parts of digestive tract; Z59.82 Transportation insecurity ==

== ENCOUNTER → 2023-12-24 | Outpatient (CLI) | payer OTHER ==
[~2023-12-24] VITALS: Ht 160 cm; Wt 114.4 kg
[~2023-12-24] MED LIST changes: +METO37.5 PO
[2023-12-24 11:22] VITALS: BP 125/77; O2SAT 91
== END ==
LOC: M PAL 10:49
PROVIDERS: ATTEND Nurse Practitioner Adult Health
DX: I50.9 Heart failure, unspecified (principal); J44.9 Chronic obstructive pulmonary disease, unspecified; G35 Multiple sclerosis; G89.4 Chronic pain syndrome; D21.9 Benign neoplasm of connective and other soft tissue, unspecified; I25.2 Old myocardial infarction; K58.9 Irritable bowel syndrome, unspecified; F32.A Depression, unspecified; F41.9 Anxiety disorder, unspecified; R11.2 Nausea with vomiting, unspecified; R53.83 Other fatigue; Z51.5 Encounter for palliative care; Z79.02 Long term (current) use of antithrombotics/antiplatelets; Z79.891 Long term (current) use of opiate analgesic; Z79.899 Other long term (current) drug therapy; Z80.3 Family history of malignant neoplasm of breast; Z86.73 Personal history of transient ischemic attack (TIA), and cerebral infarction without residual deficits; Z87.891 Personal history of nicotine dependence; Z88.1 Allergy status to other antibiotic agents; Z88.2 Allergy status to sulfonamides; Z88.4 Allergy status to anesthetic agent; Z88.5 Allergy status to narcotic agent; Z88.6 Allergy status to analgesic agent; Z88.8 Allergy status to other drugs, medicaments and biological substances; Z91.09 Other allergy status, other than to drugs and biological substances; Z95.2 Presence of prosthetic heart valve; Z95.5 Presence of coronary angioplasty implant and graft; Z99.81 Dependence on supplemental oxygen; Z91.040 Latex allergy status; Z91.013 Allergy to seafood; Z91.018 Allergy to other foods; Z91.048 Other nonmedicinal substance allergy status; Z90.710 Acquired absence of both cervix and uterus; Z90.49 Acquired absence of other specified parts of digestive tract

== ENCOUNTER → 2024-03-11 | Outpatient (CLI) | payer OTHER | LOC: M PAL 14:14 | PROVIDERS: ATTEND Family Medicine | DX: Z51.5 Encounter for palliative care (principal); I25.10 Atherosclerotic heart disease of native coronary artery without angina pectoris; R52 Pain, unspecified; I48.91 Unspecified atrial fibrillation; I25.2 Old myocardial infarction; I51.3 Intracardiac thrombosis, not elsewhere classified; K50.90 Crohn's disease, unspecified, without complications; G47.09 Other insomnia; F41.9 Anxiety disorder, unspecified; Z95.3 Presence of xenogenic heart valve; Z86.73 Personal history of transient ischemic attack (TIA), and cerebral infarction without residual deficits; Z79.891 Long term (current) use of opiate analgesic; Z79.02 Long term (current) use of antithrombotics/antiplatelets; Z79.899 Other long term (current) drug therapy; Z88.1 Allergy status to other antibiotic agents; Z88.2 Allergy status to sulfonamides; Z91.040 Latex allergy status; Z88.5 Allergy status to narcotic agent; Z88.8 Allergy status to other drugs, medicaments and biological substances; Z91.041 Radiographic dye allergy status; Z91.048 Other nonmedicinal substance allergy status; Z88.6 Allergy status to analgesic agent; Z91.09 Other allergy status, other than to drugs and biological substances; Z88.4 Allergy status to anesthetic agent; Z91.018 Allergy to other foods; Z91.013 Allergy to seafood ==

== ENCOUNTER 2024-03-24 13:47 | Emergency (ER) | payer OTHER ==
[~2024-03-24] VITALS: Ht 160 cm; Wt 110.2 kg
[2024-03-24 13:57] VITALS: TEMP 98.8
[2024-03-24 16:32] LABS: BASO % 0.2 % (0.0-1.0); EOS # 0.1 10^3/uL (0.0-0.5); EOS % 1.3 % (0.0-3.0); HEMATOCRIT 46.6 % (36.0-47.0); HEMOGLOBIN 14.6 g/dl (12.0-15.5); LYMPH # 1.3 10^3/uL (1.5-5.0); MEAN CORPUSCULAR HEMOGLOBIN 30.7 pg (27.0-33.0); MEAN CORPUSCULAR HGB CONC 31.3 g/dl (32.0-36.5); MEAN CORPUSCULAR VOLUME 98.1 fl (80.0-96.0); MONO # 0.7 10^3/uL (0.0-0.8); MONO % 7.7 % (2.0-8.0); NEUTROPHILS % 76.6 % (36.0-66.0); PLATELET COUNT, AUTOMATED 345 10^3/uL (150-450); RED BLOOD COUNT 4.75 10^6/uL (4.00-5.40); WHITE BLOOD COUNT 9.2 10^3/uL (4.0-10.0)
[2024-03-24] MEDS ORDERED: DOXY-441 PO (16:46)
[2024-03-24] MEDS ORDERED: AMOX875T2 PO (16:46)
[2024-03-24] MEDS ORDERED: DICL20GE TP (16:48)
[2024-03-24] MEDS ORDERED: METH-1164 PO (16:49)
[2024-03-24] MEDS: METHOCARBAMOL 1,000 MG/10 ML VIAL IV ONE (16:52)
[2024-03-24] MEDS: ACETAMINOPHEN *IV* 1,000 MG in IV 1 EA IV ONE (16:53)
[2024-03-24] MEDS: IPRATROPIUM 0.5MG/ALBUTEROL 2.5MG INH SOL UD 3ML (DUONEB) NEB ONE (16:56)
[2024-03-24 17:00] VITALS: BP 136/63
[2024-03-24 17:13] LABS: CPK CREATINE PHOSPHOKINASE 29 U/L (34-145)
[2024-03-24 17:14] LABS: ALBUMIN 3.3 G/DL (3.2-5.2); ALKALINE PHOSPHATASE 56 U/L (35-104); ALT/SGPT < 9 U/L (7.0-40); AST/SGOT 10 U/L (<34); BILIRUBIN,TOTAL 0.5 MG/DL (0.3-1.2); BLOOD UREA NITROGEN 13 MG/DL (9-23); CALCIUM LEVEL 9.4 MG/DL (8.5-10.1); CARBON DIOXIDE LEVEL 30 MMOL/L (20-31); CHLORIDE LEVEL 106 MMOL/L (98-107); CK-MB VALUE MASS < 1.0 NG/ML (<3.6); CREATININE FOR GFR 0.56 MG/DL (0.55-1.30); GLOMERULAR FILTRATION RATE > 60.0 (>51); GLUCOSE, FASTING 109 MG/DL (60-100); MAGNESIUM LEVEL 1.8 MG/DL (1.8-2.4); MB/CK RELATIVE INDEX 3.44 (< OR =4); POTASSIUM SERUM 4.5 MMOL/L (3.5-5.1); SODIUM LEVEL 143 MMOL/L (136-145)
[2024-03-24 18:17] VITALS: O2SAT 92
[2024-03-24] MEDS ORDERED: ALBU2.5V10 INH (18:17)
== END 2024-03-24 18:43 | disposition home or self-care (01) ==
LOC: M ED 13:47 → EDBD 13:47 → M ED 18:43
DX: J18.1 Lobar pneumonia, unspecified organism (principal); M94.0 Chondrocostal junction syndrome [Tietze]; R00.1 Bradycardia, unspecified; I48.91 Unspecified atrial fibrillation; I25.119 Atherosclerotic heart disease of native coronary artery with unspecified angina pectoris; I25.2 Old myocardial infarction; E11.9 Type 2 diabetes mellitus without complications; K50.90 Crohn's disease, unspecified, without complications; M06.9 Rheumatoid arthritis, unspecified; F43.10 Post-traumatic stress disorder, unspecified; F41.9 Anxiety disorder, unspecified; F32.A Depression, unspecified; Z88.2 Allergy status to sulfonamides; Z88.8 Allergy status to other drugs, medicaments and biological substances; Z88.5 Allergy status to narcotic agent; Z91.040 Latex allergy status; Z91.09 Other allergy status, other than to drugs and biological substances; Z79.1 Long term (current) use of non-steroidal anti-inflammatories (NSAID); Z79.51 Long term (current) use of inhaled steroids; Z79.2 Long term (current) use of antibiotics; Z79.4 Long term (current) use of insulin; Z79.899 Other long term (current) drug therapy; Z79.01 Long term (current) use of anticoagulants
CPT/HCPCS: 71101; 80053; 82550; 82553; 83735; 84484; 85025; 87040; 87486; 87581; 87633; 87798; 93005; 93041; 94640; 94760; 96365; 96366; 96375; 99285; J0131; J2800

== ENCOUNTER → 2024-06-11 | Outpatient (CLI) | payer OTHER ==
[~2024-06-11] MED LIST changes: +ALBU2.5V10 INH; +AMOX875T2 PO; +DICL20GE TP; +DOXY-441 PO; +METH-1164 PO
== END ==
LOC: M PAL 09:28
PROVIDERS: ATTEND Physician Assistant
DX: Z51.5 Encounter for palliative care (principal); I25.2 Old myocardial infarction; D21.9 Benign neoplasm of connective and other soft tissue, unspecified; Z95.2 Presence of prosthetic heart valve; I48.20 Chronic atrial fibrillation, unspecified; I23.6 Thrombosis of atrium, auricular appendage, and ventricle as current complications following acute myocardial infarction; I69.30 Unspecified sequelae of cerebral infarction; K50.90 Crohn's disease, unspecified, without complications; Z79.891 Long term (current) use of opiate analgesic; Z88.8 Allergy status to other drugs, medicaments and biological substances; Z88.5 Allergy status to narcotic agent; Z91.048 Other nonmedicinal substance allergy status; Z91.040 Latex allergy status; Z79.899 Other long term (current) drug therapy

== ENCOUNTER → 2024-07-20 | Outpatient (CLI) | payer OTHER ==
[2024-07-20 09:51] LABS: FREE T4 1.44 NG/DL (0.89-1.76); THYROID STIMULATING HORMONE 0.231 uIU/ML (0.55-4.78)
== END ==
LOC: M LAB 07:53
DX: E66.813 Obesity, class 3 (principal)

== ENCOUNTER → 2024-07-20 | Outpatient (CLI) | payer OTHER ==
[2024-07-20 09:15] LABS: BASO % 0.3 % (0.0-1.0); EOS # 0.2 10^3/uL (0.0-0.5); EOS % 2.7 % (0.0-3.0); HEMATOCRIT 49.7 % (36.0-47.0); HEMOGLOBIN 15.4 g/dl (12.0-15.5); LYMPH # 1.8 10^3/uL (1.5-5.0); LYMPH % 21.2 % (24.0-44.0); MEAN CORPUSCULAR HEMOGLOBIN 29.8 pg (27.0-33.0); MEAN CORPUSCULAR VOLUME 96.3 fl (80.0-96.0); MONO # 0.6 10^3/uL (0.0-0.8); NEUTROPHILS # 5.9 10^3/uL (1.5-8.5); NEUTROPHILS % 68.5 % (36.0-66.0); PLATELET COUNT, AUTOMATED 284 10^3/uL (150-450); RED BLOOD COUNT 5.16 10^6/uL (4.00-5.40); WHITE BLOOD COUNT 8.6 10^3/uL (4.0-10.0)
[2024-07-20 09:33] LABS: INR 2.99
[2024-07-20 09:36] LABS: ALKALINE PHOSPHATASE 62 U/L (35-104); ALT/SGPT 15 U/L (7.0-40); AST/SGOT 14 U/L (<34); BILIRUBIN,TOTAL 0.4 MG/DL (0.3-1.2); BLOOD UREA NITROGEN 17 MG/DL (9-23); CALCIUM LEVEL 9.1 MG/DL (8.5-10.1); CARBON DIOXIDE LEVEL 28 MMOL/L (20-31); CHLORIDE LEVEL 107 MMOL/L (98-107); CHOLESTEROL LEVEL 120 MG/DL (<200); CHOLESTEROL RISK RATIO 3.14 (<5); CREATININE FOR GFR 0.64 MG/DL (0.55-1.30); GLOMERULAR FILTRATION RATE > 90.0 (>51); GLUCOSE, FASTING 99 MG/DL (60-100); HDL CHOLESTEROL 38.2 MG/DL (>40); LDL CHOLESTEROL 61.2 MG/DL (<100); MAGNESIUM LEVEL 1.9 MG/DL (1.8-2.4); NON-HDL-C 81.8 MG/DL; POTASSIUM SERUM 4.6 MMOL/L (3.5-5.1); SODIUM LEVEL 141 MMOL/L (136-145); TRIGLYCERIDES LEVEL 103 MG/DL (<150)
[2024-07-20 09:45] LABS: FREE T4 1.52 NG/DL (0.89-1.76); THYROID STIMULATING HORMONE 0.222 uIU/ML (0.55-4.78)
== END ==
LOC: M LAB 07:48
PROVIDERS: ATTEND Internal Medicine Cardiovascular Disease
DX: I48.0 Paroxysmal atrial fibrillation (principal); I25.10 Atherosclerotic heart disease of native coronary artery without angina pectoris

== ENCOUNTER → 2024-09-09 | Outpatient (CLI) | payer OTHER ==
[~2024-09-09] MED LIST changes: -AMIO200T49 PO; +AMIO200T54 PO
== END ==
LOC: M PAL 13:34
PROVIDERS: ATTEND Physician Assistant
DX: Z51.5 Encounter for palliative care (principal); I25.2 Old myocardial infarction; D15.1 Benign neoplasm of heart; Z95.3 Presence of xenogenic heart valve; I48.91 Unspecified atrial fibrillation; I51.3 Intracardiac thrombosis, not elsewhere classified; I63.9 Cerebral infarction, unspecified; K50.80 Crohn's disease of both small and large intestine without complications; Z79.891 Long term (current) use of opiate analgesic; Z88.2 Allergy status to sulfonamides; Z91.040 Latex allergy status; Z91.048 Other nonmedicinal substance allergy status; Z88.5 Allergy status to narcotic agent; Z91.018 Allergy to other foods; Z79.899 Other long term (current) drug therapy; Z79.02 Long term (current) use of antithrombotics/antiplatelets

== ENCOUNTER 2024-12-23 16:20 | Observation (INO) | payer OTHER ==
[~2024-12-23] VITALS: Ht 160 cm; Wt 104.5 kg
[~2024-12-23 16:20] MED LIST changes: -DIPH50CA PO; +DIPH50CA31 PO; -PROC5TAB57 PO; +PROC5TAB81 PO
[2024-12-23 17:18] LABS: BASO # 0.0 10^3/uL (0.0-0.2); BASO % 0.2 % (0.0-1.0); EOS # 0.1 10^3/uL (0.0-0.5); EOS % 0.7 % (0.0-3.0); LYMPH # 1.8 10^3/uL (1.5-5.0); LYMPH % 20.0 % (24.0-44.0); MONO # 0.5 10^3/uL (0.0-0.8); MONO % 5.9 % (2.0-8.0); NEUTROPHILS # 6.4 10^3/uL (1.5-8.5); NEUTROPHILS % 72.7 % (36.0-66.0); PLATELET COUNT, AUTOMATED 263 10^3/uL (150-450)
[2024-12-23 17:42] LABS: ALT/SGPT 36.0 U/L (7.0-40); AST/SGOT 72.0 U/L (<34); CALCIUM LEVEL 8.8 MG/DL (8.5-10.1); CARBON DIOXIDE LEVEL 34.0 MMOL/L (20-31); CHLORIDE LEVEL 100.0 MMOL/L (98-107); CREATININE FOR GFR 0.83 MG/DL (0.55-1.30); GLOMERULAR FILTRATION RATE 82.7 (>51); POTASSIUM SERUM 5.6 MMOL/L (3.5-5.1); SODIUM LEVEL 142.0 MMOL/L (136-145)
[2024-12-23 18:23] LABS: INR 6.7
[2024-12-23 18:49] LABS: CK-MB VALUE MASS 2.3 NG/ML (<3.6); CPK CREATINE PHOSPHOKINASE 96.0 U/L (34-145); MB/CK RELATIVE INDEX 2.39 (< OR =4)
[2024-12-23] MEDS: IPRATROPIUM 0.5 MG/ALBUTEROL 2.5 MG INH SOL UD 3 ML NEB PRN (19:12)
[2024-12-23 19:28] LABS: ABG BASE EXCESS 4.2 (-2.0-2.0); ABG HCO3 31.7 MMOL/L (22.0-26.0); ABG O2 SATURATION 98.2 % (95.0-99.0); ABG PARTIAL PRESSURE CO2 58.9 mmHg (35.0-45.0); ABG PARTIAL PRESSURE O2 121.4 mmHg (75.0-100.0); ABG STANDARD HCO3 28.2 MMOL/L. (22.0-26.0); ABG TOTAL CO2 33.5 MMOL/L (22.0-29.0); ABG pH (ARTERIAL) 7.349 UNITS (7.350-7.450)
[2024-12-23 19:30] LABS: POTASSIUM SERUM 4.5 MMOL/L (3.5-5.1)
[2024-12-23 19:37] LABS: CK-MB VALUE MASS 3.2 NG/ML (<3.6)
[2024-12-23 19:38] LABS: CPK CREATINE PHOSPHOKINASE 64.0 U/L (34-145); MB/CK RELATIVE INDEX 5.0 (< OR =4)
[2024-12-23] MEDS: AZITHROMYCIN 250 MG TABLET PO ONE (21:16)
[2024-12-23] MEDS: cefTRIAXone SOD 1 GM in DEXTROSE 5% (D5W) ADV/MINI-BAG 50 ML IV ONE (21:16)
[2024-12-23] MEDS: FUROSEMIDE 40 MG/4 ML VIAL IV ONE (21:16)
[2024-12-23] MEDS ORDERED: NITR4TASL SL (21:25)
[2024-12-23] MEDS ORDERED: ALPR0.5T3 PO (21:25)
[2024-12-23] MEDS ORDERED: FENO160T10 PO (21:27)
[2024-12-23] MEDS ORDERED: METO1TAB87 PO (21:37)
[2024-12-23] MEDS ORDERED: WARF-23 PO (21:37)
[2024-12-23] MEDS ORDERED: HOME MED LIST COMPLETE! XX SCH (21:40)
[2024-12-23] MEDS ORDERED: ALPRAZolam 0.5 MG TAB PO PRN (21:45)
[2024-12-23] MEDS ORDERED: oxyCODONE 15MG CR TAB PO SCH (22:00)
[2024-12-23] MEDS: traZODone 50 MG TAB PO SCH (22:50)
[2024-12-23] MEDS: ATORVASTATIN 20 MG TAB PO SCH (22:50)
[2024-12-23] MEDS: oxyCODONE 20MG CR TAB PO SCH (22:50)
[2024-12-23] MEDS: METOPROLOL TART 25 MG TABLET PO SCH (23:03)
[2024-12-23] MEDS: ALPRAZolam 0.5 MG TAB PO PRN (23:13)
[2024-12-24 06:53] LABS: PLATELET COUNT, AUTOMATED 236 10^3/uL (150-450)
[2024-12-24 07:24] LABS: CALCIUM LEVEL 8.7 MG/DL (8.5-10.1); CARBON DIOXIDE LEVEL 35 MMOL/L (20-31); CHLORIDE LEVEL 100 MMOL/L (98-107); CREATININE FOR GFR 0.75 MG/DL (0.55-1.30); GLOMERULAR FILTRATION RATE > 90.0 (>51); POTASSIUM SERUM 4.2 MMOL/L (3.5-5.1); SODIUM LEVEL 142 MMOL/L (136-145)
[2024-12-24 07:31] LABS: INR 5.24
[2024-12-24 07:37] VITALS: TEMP 99.6
[2024-12-24] MEDS: IPRATROPIUM 0.5 MG/ALBUTEROL 2.5 MG INH SOL UD 3 ML NEB SCH (08:00)
[2024-12-24] MEDS: AZITHROMYCIN 250 MG TABLET PO SCH (09:41)
[2024-12-24] MEDS: CLOPIDOGREL 75 MG TAB PO SCH (09:43)
[2024-12-24] MEDS: cefTRIAXone SOD 1 GM in DEXTROSE 5% (D5W) ADV/MINI-BAG 50 ML IV SCH (09:55)
[2024-12-24] MEDS: AMIODARONE 200 MG TAB PO SCH (10:50)
[2024-12-24 10:51] VITALS: BP 135/65
[2024-12-24] MEDS ORDERED: VARIBAR PUDDING 40% w/v 230ML TUBE As Ordered ONE (10:54)
[2024-12-24] MEDS ORDERED: BARIUM SULFATE 700 MG TABLET As Ordered ONE (10:54)
[2024-12-24] MEDS ORDERED: E-Z-PAQUE 96% w/w SUSP 176 GM BTL As Ordered ONE (10:54)
[2024-12-24] MEDS ORDERED: VARIBAR NECTAR 40% w/v 240ML SUSP BTL As Ordered ONE (10:55)
[2024-12-24 11:59] VITALS: BP 160/74; O2SAT 93
[2024-12-24] MEDS ORDERED: NITROGLYCERIN 0.4 MG/HR PATCH TD SCH (12:00)
[2024-12-25] MEDS ORDERED: predniSONE 20 MG TAB PO SCH (09:00)
== END 2024-12-24 11:56 | disposition left against medical advice (07) ==
LOC: M ED 16:20 → M ED INP 16:21
PROVIDERS: ADMIT Student in an Organized Health Care Education/Training Program; ATTEND Student in an Organized Health Care Education/Training Program
DX: J12.9 Viral pneumonia, unspecified (principal); J44.1 Chronic obstructive pulmonary disease with (acute) exacerbation; B97.89 Other viral agents as the cause of diseases classified elsewhere; B97.10 Unspecified enterovirus as the cause of diseases classified elsewhere; J96.10 Chronic respiratory failure, unspecified whether with hypoxia or hypercapnia; Z99.81 Dependence on supplemental oxygen; I48.91 Unspecified atrial fibrillation; I35.0 Nonrheumatic aortic (valve) stenosis; Z95.2 Presence of prosthetic heart valve; I25.10 Atherosclerotic heart disease of native coronary artery without angina pectoris; Z95.1 Presence of aortocoronary bypass graft; D21.9 Benign neoplasm of connective and other soft tissue, unspecified; R79.1 Abnormal coagulation profile; Z79.01 Long term (current) use of anticoagulants; K50.90 Crohn's disease, unspecified, without complications; R13.12 Dysphagia, oropharyngeal phase; G35.D Multiple sclerosis, unspecified; G89.4 Chronic pain syndrome; R91.8 Other nonspecific abnormal finding of lung field; F41.9 Anxiety disorder, unspecified; Z86.73 Personal history of transient ischemic attack (TIA), and cerebral infarction without residual deficits; Z90.49 Acquired absence of other specified parts of digestive tract; Z90.89 Acquired absence of other organs; Z90.79 Acquired absence of other genital organ(s); Z87.891 Personal history of nicotine dependence; Z79.899 Other long term (current) drug therapy; Z79.02 Long term (current) use of antithrombotics/antiplatelets; Z79.891 Long term (current) use of opiate analgesic; Z88.1 Allergy status to other antibiotic agents; Z88.2 Allergy status to sulfonamides; Z91.040 Latex allergy status; Z88.8 Allergy status to other drugs, medicaments and biological substances; Z88.5 Allergy status to narcotic agent; Z91.041 Radiographic dye allergy status; Z91.048 Other nonmedicinal substance allergy status; J30.1 Allergic rhinitis due to pollen; Z91.018 Allergy to other foods; Z91.013 Allergy to seafood
CPT/HCPCS: 36415; 36600; 71045; 71250; 74230; 80048; 80076; 82550; 82553; 82803; 83605; 83880; 84132; 84145; 84484; 85025; 85027; 85610; 85730; 87040; 87486; 87581; 87633; 87798; 92610; 92611; 93005; 93041; 94640; 94760; 96365; 96366; 96375; 96376; 99285; J0696; J1938; J2919

== ENCOUNTER → 2024-12-28 | Outpatient (CLI) | payer OTHER ==
[~2024-12-28] MED LIST changes: +ALPR0.5T3 PO; +FENO160T10 PO; +METO1TAB87 PO; +PROC5TAB57 PO; -PROC5TAB81 PO; +WARF-23 PO
== END ==
LOC: M PAL 08:32
PROVIDERS: ATTEND Physician Assistant
DX: Z51.5 Encounter for palliative care (principal); I25.2 Old myocardial infarction; D15.1 Benign neoplasm of heart; I48.20 Chronic atrial fibrillation, unspecified; I23.6 Thrombosis of atrium, auricular appendage, and ventricle as current complications following acute myocardial infarction; Z86.73 Personal history of transient ischemic attack (TIA), and cerebral infarction without residual deficits; K50.90 Crohn's disease, unspecified, without complications; Z79.891 Long term (current) use of opiate analgesic; Z88.2 Allergy status to sulfonamides; Z91.040 Latex allergy status; Z91.041 Radiographic dye allergy status; Z88.6 Allergy status to analgesic agent; Z88.4 Allergy status to anesthetic agent; Z91.013 Allergy to seafood; Z88.5 Allergy status to narcotic agent; Z88.1 Allergy status to other antibiotic agents; Z79.899 Other long term (current) drug therapy